=== PATIENT | male | born 1975 | race Two or more races ===

== ENCOUNTER 2020-04-28 12:53 | Outpatient (REF) | payer SELFPAY | END 2020-04-28 12:54 | disposition home or self-care (01) | LOC: HO.LAB 12:53 | PROVIDERS: Visit Provider Internal Medicine | DX: Z20.828 Contact with and (suspected) exposure to other viral communicable diseases (principal) | CPT/HCPCS: C9803; U0003 ==

== ENCOUNTER 2020-05-08 13:10 | Emergency (ER) | payer SELFPAY ==
[2020-05-08 14:25] VITALS: BP 152/96; PULSE 85; RESP 18; TEMP 37.1; O2SAT 99; BMI 36.3
--- NOTE | 2020-05-08 17:00 | CT_ITS ---
EXAMINATION: CT HEAD WITHOUT CONTRAST CLINICAL INFORMATION: 44-year-old male patient with head injury. COMPARISON: CT of the head done 12/18/2016 and 04/16/2017. (Normal). TECHNIQUE: Contiguous axial imaging was performed from the skull base to vertex without intravenous administration of contrast. This CT examination was performed using dose optimization techniques as appropriate, variously including the following: *Automated exposure control *Adjustment of mA and/or kV according to patient size (this includes techniques or standardized protocols for targeted exams where dose is matched to indication/reason for exam; i.e. extremities or head) *Use of iterative reconstruction technique DLP: 796 mGy-cm FINDINGS: There is no evidence of acute intracranial hemorrhage or territorial infarction. No abnormal mass effect or midline shift is seen. Guardado to white matter differentiation is well preserved. No extra-axial fluid collections are identified. The ventricles are normal in size. There is no abnormal attenuation within the brain parenchyma. The osseous structures and soft tissues are normal. The mastoid air cells are well aerated. There are secretions and fluid contained within the right ethmoid air cells and the right frontal sinus air cell. CT/CT head/brain wo con IMPRESSION: No acute intracranial pathology. Right frontal and ethmoid sinusitis
--- NOTE | 2020-05-08 17:01 | ED_ITS ---
HPI - Head Injury General Chief complaint: Head Injury Stated complaint: head inj,work related Time Seen by Provider: 05/08/20 16:42 Source: patient Mode of arrival: ambulatory Limitations: no limitations History of Present Illness HPI Narrative: Patient comes to the emergency room for a head injury. Patient states earlier this morning at 10:00am, he was at work, slipped and hit his head on a metal part of the back of a truck. Patient did not lose consciousness, but has been complaining of dizziness all day. No lacerations, patient denies being on blood thinners. No headache at this time. Patient states he took ibuprofen around 11:00. 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 Related Data Allergies Allergy/AdvReac Type Severity Reaction Status Date / Time No Known Allergies Allergy Unverified 01/28/20 16:24 [No Known Allergies*] Review of Systems Review of Systems: Constitutional : No Weight loss, No Fever, No Chills, No Night Sweats, No Fatigue, No Malaise ENT/Mouth : No Hearing loss, No Ear Pain, No Nasal Congestion, No Sinus Pain, No Hoarseness, No sore throat, No Rhinorrhea, No Swallowing Difficulty Eyes: No Eye Pain, No Swelling, No Redness, No Foreign Body, No Discharge, No Vision Changes Cardiovascular : No Chest Pain, No SOB, No Dyspnea on Exertion, No Orthopnea, No Edema, No Palpitations Respiratory : No Cough, No Sputum, No Wheezing, No Smoke Exposure, No Dyspnea Gastrointestinal : No Nausea, No Vomiting, No Diarrhea, No Constipation, No abdominal Pain, No Hematochezia, No Melena Genitourinary : no irregular bleeding, No Dysuria, No Urinary Frequency, No Hematuria, No Urinary Incontinence, No Urgency, No Flank Pain, No Urinary Flow Changes, No Hesitancy Musculoskeletal : No joint pain, No Myalgias, No Joint Swelling Skin : No Skin Lesions, No rash Neuro : No Weakness, No Numbness, No Paresthesias, No Loss of Consciousness, reports mild Dizziness, had mild headache earlier today, resolved now Psych : No Anxiety/Panic, No Depression, No SI/HI/AH/VH, No Social Issues, Heme/Lymph: No Bruising, No Bleeding,No Lymphadenopathy Endocrine : No Polyuria, No Polydipsia, No Temperature Intolerance [facility] Past Medical History Medical History (Updated 05/08/20 @ 18:10 by Bell Hutton MD) Anxiety Asthma Social History Social History Advance Directives: No Advance Directives Information Provided: No Physical Exam Vital Signs: Vital Signs: Last Vital Signs Temp 98.8 F 05/08/20 14:25 Pulse 85 05/08/20 14:25 Resp 18 05/08/20 14:25 BP 152/96 H 05/08/20 14:25 Pulse Ox 99 05/08/20 14:25 Body Mass Index 36.3 Appearance: Alert. Oriented X3. No acute distress. Eyes: Pupils equal, round and reactive to light. ENT: Pharynx normal. Neck: Normal inspection. Neck supple. No lymph nodes noted. No crepitus CVS: Normal heart rate and rhythm. Pulses normal. Normal S1 and S2 Respiratory: No respiratory distress. Breath sounds normal. No Wheezing. No rales Abdomen: Soft and nontender. No rigidity. No distention. good BS x4 Skin: Skin warm and dry. Normal skin color. Normal skin turgor. Extremities: No lower extremity edema. No Lacerations. No Rash Neuro: Oriented X 3. No motor deficit. No sensory deficit. Moving all extermities. No slurred speech. Course Course Course Narrative: I discussed the CT findings with the patient, no acute pathology. MDM - Head Injury Imaging Data CT scan - head: Radiologist's impression: FINDINGS: There is no evidence of acute intracranial hemorrhage or territorial infarction. No abnormal mass effect or midline shift is seen. Guardado to white matter differentiation is well preserved. No extra-axial fluid collections are identified. The ventricles are normal in size. There is no abnormal attenuation within the brain parenchyma. The osseous structures and soft tissues are normal. The mastoid air cells are well aerated. There are secretions and fluid contained within the right ethmoid air cells and the right frontal sinus air cell. CT/CT head/brain wo con IMPRESSION: No acute intracranial pathology. Right frontal and ethmoid sinusitis Discharge Plan Discharge Clinical Impression: Closed head injury Qualifiers: Encounter type: initial encounter Qualified Code(s): S09.90XA - Unspecified injury of head, initial encounter Patient Disposition: Home, Self-Care Instructions: Head Injury (ED) Additional Instructions: Your head CT was normal. Please follow-up with your primary care physician tomorrow. If you have any worsening or new symptoms, please return to the emergency room or call 911
[2020-05-08 18:14] VITALS: BP 144/101; PULSE 78; RESP 16; TEMP 36.7; O2SAT 98
== END 2020-05-08 18:28 | disposition home or self-care (01) ==
PROVIDERS: Emergency Provider Emergency Medicine; PCP Internal Medicine
DX: S00.90XA Unspecified superficial injury of unspecified part of head, initial encounter (principal); G44.309 Post-traumatic headache, unspecified, not intractable; W01.119A Fall on same level from slipping, tripping and stumbling with subsequent striking against unspecified sharp object, initial encounter; Y93.9 Activity, unspecified; Y92.9 Unspecified place or not applicable; Y99.0 Civilian activity done for income or pay
CPT/HCPCS: 70450; 99284

== ENCOUNTER 2020-05-11 06:44 | Outpatient (REF) | payer SELFPAY | END 2020-05-11 06:45 | disposition home or self-care (01) | LOC: HO.LAB 06:44 | PROVIDERS: PCP Internal Medicine; Visit Provider Internal Medicine | DX: Z20.828 Contact with and (suspected) exposure to other viral communicable diseases (principal) | CPT/HCPCS: C9803; U0003 ==

== ENCOUNTER 2020-05-13 13:37 | Emergency (ER) | payer SELFPAY ==
[2020-05-13 13:39] VITALS: BP 154/99; PULSE 79; RESP 16; TEMP 36.8; O2SAT 99; BMI 34.9
== END 2020-05-13 15:12 | disposition left against medical advice (07) ==
PROVIDERS: Emergency Provider Emergency Medicine
DX: R10.13 Epigastric pain (principal)
CPT/HCPCS: 99281; 99282

== ENCOUNTER 2020-06-17 15:31 | Emergency (ER) | payer OTHER, SELFPAY ==
--- NOTE | ~2020-06-17 | XR_ITS ---
EXAMINATION: XR CHEST CLINICAL INFORMATION: Shortness of breath COMPARISON: Chest x-ray 10/09/2016 TECHNIQUE: Frontal portable view of the chest was obtained. 5:31 PM FINDINGS: No significant abnormality is noted involving the heart, lungs, mediastinum, bony thorax or soft tissues. XR/XR chest 1V IMPRESSION: Unremarkable examination.
[2020-06-17 15:48] VITALS: BP 149/103; PULSE 85; RESP 18; TEMP 37.2; O2SAT 96; BMI 36.0
--- NOTE | 2020-06-17 17:18 | ED_ITS ---
HPI - URI/Sore Throat General Source: patient Mode of arrival: ambulatory Limitations: no limitations History of Present Illness HPI Narrative: Patient is a 45-year-old male with a past medical history of asthma, who is complaining of 5 days of shortness of breath that has been worse so in the past 2 days. He states he has tried his albuterol inhaler with no relief. He denies any cough, fevers, congestion, sinus pain or chest pain. States he lives with his and [id number] and his [id number] currently has bronchitis. He states they were all tested for COVID 10 days ago and they were all negative. He states he has been eating and drinking normally. Related Data Previous Rx's Medication Instructions Recorded albuterol sulfate 90 mcg/actuation 2 puff INHALATION QID PRN #8.5 g 06/18/20 aerosol inhaler Allergies Allergy/AdvReac Type Severity Reaction Status Date / Time No Known Allergies Allergy Verified 06/17/20 15:48 [No Known Allergies*] Review of Systems Review of Systems: Yes all other systems are reviewed and are negative [facility] Past Medical History Medical History Anxiety Asthma Social History Social History Alcohol intake: never Smoking Status: Never smoker Use of substances other than those prescribed or required for medical reasons: No Advance Directives: No Advance Directives Information Provided: No Physical Exam Vital Signs: Vital Signs: Last Vital Signs Temp 98.9 F 06/17/20 15:48 Pulse 85 06/17/20 15:48 Resp 18 06/17/20 15:48 BP 149/103 H 06/17/20 15:48 Pulse Ox 96 06/17/20 15:48 Body Mass Index 36.0 Const: General: cooperative, healthy appearing, comfortable and well developed Nutritional Appearance: average body habitus Orientation/consciousness: patient oriented x3 HENMT: Head: Yes normal to inspection, Yes normocephalic and Yes atraumatic Ears: hearing grossly normal bilaterally and external ears normal General nose exam: Normal external nose present Face and sinus: Yes normal facial exam and Yes sinuses nontender Mouth: Normal oral and palatal mucosa present Throat: Yes posterior oropharynx normal Eyes: General: appearance normal, both eyes and all related structures Resp: Effort & Inspection: normal respiratory effort and able to speak in complete sentences Auscultation: clear to auscultation bilaterally, no crackles, no rales, no rhonchi and no wheezes Cardio: Rate: regular rate Rhythm: regular rhythm Heart sounds: normal S1 and S2 Skin: General skin exam: no rashes or lesions noted Neuro: General: patient oriented x3 Course Course Course Narrative: Patient is a 45-year-old male with a past medical history of asthma complaining of 5 days of increasing shortness of breath. Upon my exam, patient's SpO2 was noted to be 100% a heart rate of 71BPM. Patient was breathing easily. Will get chest x-ray to rule out any lung pathology. Will also test for COVID MDM - URI/Sore Throat Lab Data Labs: Lab Results 06/17/20 Range/Units 17:55 Coronavirus (PCR) NEGATIVE (Negative) SARS-CoV-2 (PCR) Cancelled Influenza Type A (PCR) NEGATIVE (Negative) Influenza Type B (PCR) NEGATIVE (Negative) RSV RNA Qual (PCR) NEGATIVE (Negative) Imaging Data Chest x-ray: Attestation: I personally reviewed and interpreted this imaging study as follows: My impression: No acute disease Radiologist's impression: [address] [id number] ReportSigned Patient: Jose RuthMR#: [id number]: [id number]:[id number]/Sex: 45 / MADM Date: 06/17/20Loc: [address]: Ordering Physician: ALEXA ORTIZ Date of Service: 06/17/20 Procedure(s): XR chest 1V Accession Number(s): [id number] cc: ALEXA ORTIZ~ EXAMINATION: XR CHEST CLINICAL INFORMATION: Shortness of breath COMPARISON: Chest x-ray 10/09/2016 TECHNIQUE: Frontal portable view of the chest was obtained. 5:31 PM FINDINGS: No significant abnormality is noted involving the heart, lungs, mediastinum, bony thorax or soft tissues. XR/XR chest 1V IMPRESSION: Unremarkable examination. Dictated By:BRANDON SIDHU MDSigned By:<Electronically signed by BRANDON SIDHU MD in OV>06/17/202 DD/ 1711TD/TT: Client Engagement Specialist: HUI Discharge Plan Discharge Clinical Impression: Upper respiratory infection Qualifiers: URI type: unspecified viral URI Qualified Code(s): J06.9 - Acute upper respiratory infection, unspecified Patient Disposition: Home, Self-Care Instructions: COVID-19 (Coronavirus Disease 2019) (ED) Additional Instructions: You likely have a mild upper respiratory infection, your chest x-ray was normal, retest due for COVID today, you will get test results in 3-10 days. Until you receive a negative test, please follow the attached instructions about quarantining. If your shortness of breath becomes much worse, develop a high fever you cannot control with Tylenol or Motrin or you have chest pain, please seek emergent medical care. Prescriptions: No Action albuterol sulfate 90 mcg/actuation HFA aerosol inhaler 2 puff inhalation QID PRN (Reason: bronchospasm) Qty: 8.5 RF: 5 Interventions: ED Discharge Assessment Last Done: 06/17/20 18:41 Discharge Date/Time: 06/17/20 18:46
[2020-06-17 18:52] LABS: Influenza A PCR NEGATIVE (Negative); Influenza B PCR NEGATIVE (Negative); Resp Syncy Virus RNA Qual PCR NEGATIVE (Negative); SARS COV2 PCR INHOUSE NEGATIVE (Negative)
== END 2020-06-17 18:46 | disposition home or self-care (01) ==
PROVIDERS: Physician Assistant; Emergency Provider Emergency Medicine Emergency Medical Services
DX: J06.9 Acute upper respiratory infection, unspecified (principal); Z20.822 Contact with and (suspected) exposure to COVID-19; J45.909 Unspecified asthma, uncomplicated; Z79.899 Other long term (current) drug therapy
CPT/HCPCS: 0241U; 36415; 71045; 99283

== ENCOUNTER 2020-08-12 08:39 | Outpatient (REF) | payer OTHER, SELFPAY ==
[2020-08-12 13:30] LABS: SARS COV2 PCR INHOUSE NEGATIVE (Negative)
== END 2020-08-12 08:40 | disposition home or self-care (01) ==
LOC: HO.LAB 08:39
PROVIDERS: Visit Provider Internal Medicine
DX: Z20.822 Contact with and (suspected) exposure to COVID-19 (principal)
CPT/HCPCS: C9803; U0003

== ENCOUNTER 2020-08-24 06:56 | Outpatient (REF) | payer OTHER, SELFPAY ==
[2020-08-24 08:23] LABS: TSH reflex Free T4 1.09 uIU/mL (0.32-4.0)
== END 2020-08-24 06:57 | disposition home or self-care (01) ==
LOC: HO.LAB 06:56
PROVIDERS: PCP Internal Medicine; Visit Provider Internal Medicine
DX: E78.00 Pure hypercholesterolemia, unspecified (principal); R53.83 Other fatigue; R32 Unspecified urinary incontinence
CPT/HCPCS: 36415; 84153; 84443

== ENCOUNTER 2021-01-10 07:29 | Emergency (ER) | payer OTHER, SELFPAY ==
--- NOTE | ~2021-01-10 | XR_ITS ---
EXAMINATION: XR CHEST CLINICAL INFORMATION: Chest pain COMPARISON: Chest radiographs 06/17/2020, 10/09/2016 TECHNIQUE: Portable upright AP view of the chest was obtained. FINDINGS: The lungs are clear. There is no hyperinflation, airspace opacity, pneumothorax, pleural reaction, or effusion. The heart is normal in size and the hilar and mediastinal contours are normal. Bony structures are unremarkable. XR/XR chest 1V IMPRESSION: Unremarkable examination.
--- NOTE | 2021-01-10 07:49 | ECG_ITS ---
Test Reason : CP Blood Pressure : / mmHG Vent. Rate : 064 BPM Atrial Rate : 064 BPM P-R Int : 186 ms QRS Dur : 088 ms QT Int : 390 ms P-R-T Axes : 072 041 028 degrees QTc Int : 402 ms Normal sinus rhythm Normal ECG When compared with ECG of 07-JUN-2017 14:03, No significant change was found Referred By: Generic ED Physician Electronically Signed By:DEEPAK BA
--- NOTE | 2021-01-10 08:05 | ED_ITS ---
HPI - Chest Pain General Chief Complaint: General Medical Stated Complaint: chest pain Time Seen by Provider: 01/10/21 08:05 Source: patient Mode of arrival: ambulatory Limitations: no limitations History of Present Illness MD complaint: chest pain Onset (ago): hour(s) (started at 4am) Timing of current episode: other (improving) Prior episodes: No Onset: during rest Pain location: substernal and left chest Pain radiation: none Severity: moderate Quality: sharp Relieving factors: nothing Exacerbating factors: inspiration Associated symptoms: other (noted to some R flank pain yesterday) Treatment prior to arrival: none Related Data Previous Rx's Medication Instructions Recorded albuterol sulfate 90 mcg/actuation 2 puff INHALATION QID PRN #8.5 g 06/18/20 aerosol inhaler amlodipine 10 mg tablet 10 mg PO DAILY #30 tab 08/19/20 lisinopril 5 mg tablet 5 mg PO DAILY #90 tab 10/28/20 Allergies Allergy/AdvReac Type Severity Reaction Status Date / Time No Known Allergies Allergy Verified 08/19/20 12:24 [No Known Allergies*] Review of Systems Review of Systems: Constitutional : No Weight loss, No Fever, No Chills ENT/Mouth : No sore throat, No Rhinorrhea Eyes: No Eye Pain, No Swelling Cardiovascular : pos Chest Pain, no SOB, no Dyspnea on Exertion, No Orthopnea, No Edema, No Palpitations Respiratory : No Cough, No Sputum Gastrointestinal : no Nausea, No Vomiting, No Diarrhea, No abdominal Pain, No Hematochezia, No Melena Genitourinary : No Dysuria, No Urinary Frequency Musculoskeletal : No joint pain, No Myalgias, No Joint Swelling Skin : No Skin Lesions, No rash Neuro : No Weakness, No Numbness, No Dizziness, No Headache Psych : No Anxiety/Panic, No Depression Heme/Lymph: No Bruising, No Lymphadenopathy Endocrine : No Polyuria, No Polydipsia All other systems reviewed and are negative PMFSH Past Medical History Attestation statement: The following information was validated with the patient. Medical History Anxiety Asthma Benign essential hypertension Fatigue Obesity (BMI 30-39.9) Pure hypercholesterolemia Urinary incontinence Surgical History No significant past surgical history Family History Family History Mother Hypertension Maternal Grandmother Coronary artery disease Social History Social History (Updated 01/10/21 @ 08:10 by Celi Holland DO) Alcohol intake: never Patient Tobacco Use Status: Never used Tobacco Use of substances other than those prescribed or required for medical reasons: No Advance Directives: No Advance Directives Information Provided: No Physical Exam Vital Signs: Vital Signs: Last Vital Signs Temp 98.2 F 01/10/21 08:21 Pulse 72 01/10/21 08:21 Resp 16 01/10/21 08:21 BP 147/98 H 01/10/21 08:21 Pulse Ox 100 01/10/21 08:21 Body Mass Index 35.6 Appearance: Alert. Oriented X3. No acute distress. Eyes: Pupils equal, round and reactive to light. ENT: Pharynx normal. Neck: Normal inspection. Neck supple. CVS: Normal heart rate and rhythm. Pulses normal. Respiratory: No respiratory distress. Breath sounds normal. Abdomen: Soft and non-tender. Skin: Skin warm and dry. Normal skin color. Normal skin turgor. Extremities: No lower extremity edema. No calf ttp Neuro: Oriented X 3. No motor deficit. No sensory deficit. Course Course Course Narrative: repeat troponin flat, stable for DC, COVID negative MDM - Chest Pain MDM Narrative Medical decision making narrative: 45 yo male with HLD, HTN here with pleuritic L chest pain that has improved - at this time labs, troponin x 2, ddimer, EKG, CXR, UA ordered, currently is feeling better at this time seems unusual for ACS, possible PE vs pleurisy, distal pulses intact and good distal perfusion no radiation to back doubt dissection. dispo per results and findings. Lab Data Result diagrams: 01/10/21 08:50 01/10/21 08:50 Labs: Lab Results 01/10/21 01/10/21 01/10/21 Range/Units 08:50 08:50 08:50 WBC 6.7 (4.8-10.8) X10*3/uL RBC 5.44 (4.60-5.80) X10*6/uL Hgb 14.7 (14.0-18.0) g/dl Hct 45.7 (42-52) % MCV 84.0 (80-98) fL MCH 27.0 (27.0-33.0) pg MCHC 32.2 (31.0-36.0) g/dl RDW 12.7 (11.0-16.0) % Plt Count 208 (160-400) X10*3/uL MPV 9.4 (9.4-12.4) fL Immature Gran % (Auto) 0.1 (0.0-0.4) % Neut % (Auto) 65.3 (45-73) % Lymph % (Auto) 24.2 (20-40) % [place] % (Auto) 7.9 (2-11) % Eos % (Auto) 2.1 (0-4) % Baso % (Auto) 0.4 (0-2) % Lymph # (Auto) 1.6 (1.2-4.9) X10*3/uL [place] # (Auto) 0.5 (0.1-1.2) X10*3/uL Eos # (Auto) 0.1 (0.0-0.4) X10*3/uL Baso # (Auto) 0.0 (0.0-0.2) X10*3/uL Abs Immat Gran (auto) 0.01 (0.00-0.03) X10*3/uL Absolute Neuts (auto) 4.4 (2.0-8.3) X10*3/uL Absolute Nucleated RBC 0.000 (0.0-0.012) X10*3/uL Nucleated RBC % (auto) 0.0 (0.0-0.2) /100WBC D-Dimer < 200 NG/ML Sodium 138 (135-145) mmol/L Potassium 4.4 (3.3-5.1) mmol/L Chloride 104 (96-108) mmol/L Carbon Dioxide 29 (22-29) mmol/L Anion Gap 9 L (12-20) BUN 14 (9-16) mg/dL Creatinine 1.00 (0.5-1.4) mg/dL Estim Creat Clear Calc 108.0 Estimated GFR > 60 Random Glucose 104 (60-115) mg/dL Calcium 9.7 (8.4-10.2) mg/dL Magnesium 2.1 (1.6-2.6) mg/dL Total Bilirubin 0.9 (0.0-1.0) mg/dL Direct Bilirubin 0.2 (0.0-0.5) mg/dL AST 17 (5-37) U/L ALT 19 (0-40) U/L Alkaline Phosphatase 69 (39-117) U/L Troponin I High Sens (<3.5-35.0) ng/L Total Protein 7.5 (6.5-8.0) g/dL Albumin 4.7 (3.5-5.0) g/dL Lipase 30 (8-78) U/L COVID-19 (ARTUR) (Negative) COVID-19 Clin Com 01/10/21 01/10/21 01/10/21 Range/Units 08:50 08:50 10:44 WBC (4.8-10.8) X10*3/uL RBC (4.60-5.80) X10*6/uL Hgb (14.0-18.0) g/dl Hct (42-52) % MCV (80-98) fL MCH (27.0-33.0) pg MCHC (31.0-36.0) g/dl RDW (11.0-16.0) % Plt Count (160-400) X10*3/uL MPV (9.4-12.4) fL Immature Gran % (Auto) (0.0-0.4) % Neut % (Auto) (45-73) % Lymph % (Auto) (20-40) % [place] % (Auto) (2-11) % Eos % (Auto) (0-4) % Baso % (Auto) (0-2) % Lymph # (Auto) (1.2-4.9) X10*3/uL [place] # (Auto) (0.1-1.2) X10*3/uL Eos # (Auto) (0.0-0.4) X10*3/uL Baso # (Auto) (0.0-0.2) X10*3/uL Abs Immat Gran (auto) (0.00-0.03) X10*3/uL Absolute Neuts (auto) (2.0-8.3) X10*3/uL Absolute Nucleated RBC (0.0-0.012) X10*3/uL Nucleated RBC % (auto) (0.0-0.2) /100WBC D-Dimer NG/ML Sodium (135-145) mmol/L Potassium (3.3-5.1) mmol/L Chloride (96-108) mmol/L Carbon Dioxide (22-29) mmol/L Anion Gap (12-20) BUN (9-16) mg/dL Creatinine (0.5-1.4) mg/dL Estim Creat Clear Calc Estimated GFR Random Glucose (60-115) mg/dL Calcium (8.4-10.2) mg/dL Magnesium (1.6-2.6) mg/dL Total Bilirubin (0.0-1.0) mg/dL Direct Bilirubin (0.0-0.5) mg/dL AST (5-37) U/L ALT (0-40) U/L Alkaline Phosphatase (39-117) U/L Troponin I High Sens < 3.5 < 3.5 (<3.5-35.0) ng/L Total Protein (6.5-8.0) g/dL Albumin (3.5-5.0) g/dL Lipase (8-78) U/L COVID-19 (ARTUR) Negative (Negative) COVID-19 Clin Com See Note ECG Data ECG #1: Attestation: I personally reviewed and interpreted this ECG as follows: ECG interpretation date: 01/10/21 ECG interpretation time: 08:06 Interpretation: Rate: 64 Rhythm: NSR [place]: normal Normal P waves. Normal MARA. Normal QRS complex. ST T wave : normal no SHEILA qTC: normal prior studies: no acute ischemia The study has been interpreted contemporaneously by me. . Discharge Plan Discharge Clinical Impression: Chest pain Qualifiers: Chest pain type: unspecified Qualified Code(s): R07.9 - Chest pain, unspecified Patient Disposition: Home, Self-Care Instructions: Chest Pain (ED) Additional Instructions: return to ED for any worsening symptoms or concerns repeat blood tests for your heart were normal, blood clot test negative, chest xray negative, COVID NEGATIVE Prescriptions: No Action albuterol sulfate 90 mcg/actuation HFA aerosol inhaler 2 puff inhalation QID PRN (Reason: bronchospasm) Qty: 8.5 RF: 5 lisinopril 5 mg tablet 5 mg PO DAILY Qty: 90 RF: 1 amlodipine 10 mg tablet 10 mg PO DAILY Qty: 30 RF: 3 Referrals: Leif Martin MD [Primary Care Provider] - 2 days (if not better) Stand Alone Forms: Work/School Release Interventions: ED Discharge Assessment Last Done: 01/10/21 11:31 Discharge Date/Time: 01/10/21 11:35
[2021-01-10 08:21] VITALS: BP 147/98; PULSE 72; RESP 16; TEMP 36.8; O2SAT 100; BMI 35.6
[2021-01-10 08:54] LABS: MANUAL DIFF FLAG NO
[2021-01-10 08:58] LABS: Basophils Percent Auto 0.4 % (0-2); Eosinophils Absolute Auto 0.1 X10*3/uL (0.0-0.4); Eosinophils Percent Auto 2.1 % (0-4); Hematocrit 45.7 % (42-52); Hemoglobin 14.7 g/dl (14.0-18.0); Imm Gran Abs Auto 0.01 X10*3/uL (0.00-0.03); Imm Gran Pct Auto 0.1 % (0.0-0.4); Lymphocytes Absolute Auto 1.6 X10*3/uL (1.2-4.9); Lymphocytes Percent Auto 24.2 % (20-40); Mean Corpuscular HGB Conc 32.2 g/dl (31.0-36.0); Mean Platelet Volume 9.4 fL (9.4-12.4); Monocytes Absolute Auto 0.5 X10*3/uL (0.1-1.2); Monocytes Percent Auto 7.9 % (2-11); Neutrophils Absolute Auto 4.4 X10*3/uL (2.0-8.3); Neutrophils Percent Auto 65.3 % (45-73); Platelet Count 208 X10*3/uL (160-400); Red Blood Count 5.44 X10*6/uL (4.60-5.80); Red Cell Distribution Width 12.7 % (11.0-16.0); White Blood Count 6.7 X10*3/uL (4.8-10.8)
[2021-01-10 09:07] LABS: D Dimer < 200 NG/ML
[2021-01-10 09:17] LABS: COVID-19 Test Negative (Negative); IDNOW Serial# 08D9AD1C
[2021-01-10 09:23] LABS: Troponin-I High Sensitivity < 3.5 ng/L (<3.5-35.0)
[2021-01-10 09:37] LABS: Alanine Aminotransferase 19 U/L (0-40); Albumin Level 4.7 g/dL (3.5-5.0); Alkaline Phosphatase 69 U/L (39-117); Anion Gap 9 (12-20); Aspartate Amino Transferase 17 U/L (5-37); Bilirubin Direct 0.2 mg/dL (0.0-0.5); Bilirubin Total 0.9 mg/dL (0.0-1.0); Blood Urea Nitrogen 14 mg/dL (9-16); Calcium 9.7 mg/dL (8.4-10.2); Carbon Dioxide 29 mmol/L (22-29); Chloride 104 mmol/L (96-108); Estimated Glomerular Filt Rate > 60; Glucose Random 104 mg/dL (60-115); Lipase 30 U/L (8-78); Magnesium 2.1 mg/dL (1.6-2.6); Potassium 4.4 mmol/L (3.3-5.1); Sodium 138 mmol/L (135-145); Total Protein 7.5 g/dL (6.5-8.0)
[2021-01-10 11:25] LABS: Troponin-I High Sensitivity < 3.5 ng/L (<3.5-35.0)
== END 2021-01-10 11:35 | disposition home or self-care (01) ==
PROVIDERS: Emergency Provider Emergency Medicine; PCP Internal Medicine
DX: R07.9 Chest pain, unspecified (principal); I10 Essential (primary) hypertension
CPT/HCPCS: 36415; 71045; 80048; 80076; 83690; 83735; 84484; 85025; 85379; 87635; 93005; 99283; 99284

== ENCOUNTER 2021-05-12 05:54 | Emergency (ER) | payer MEDICAID, SELFPAY ==
--- NOTE | ~2021-05-12 | XR_ITS ---
EXAMINATION: XR CHEST CLINICAL INFORMATION: Cough COMPARISON: 01/10/2021 TECHNIQUE: Frontal view of the chest was obtained. FINDINGS: The lungs are clear with no focal consolidation. No evidence of pneumothorax, pulmonary edema, or pleural effusions. The cardiomediastinal silhouette is unremarkable. No acute osseous findings. XR/XR chest 1V IMPRESSION: No acute cardiopulmonary findings.
[2021-05-12 06:28] VITALS: BP 161/102; PULSE 78; RESP 16; TEMP 36.7; O2SAT 100; BMI 37.3
[2021-05-12 06:58] LABS: COVID-19 Test Negative (Negative)
--- NOTE | 2021-05-12 07:28 | ED.URI ---
HPI - URI/Sore Throat General Chief Complaint: General Medical Stated Complaint: Cough/?Pneumonia Time Seen by Provider: 05/12/21 07:23 Source: patient Mode of arrival: ambulatory Limitations: no limitations History of Present Illness MD elicited complaint: cough and rhinorrhea Onset (ago): week(s) (1) Consistency: intermittent Severity: mild Description of mucous: yellow and other (coughed so hard today noted some scrant streaked tinges of blood) Able to tolerate fluids by mouth: Yes Exacerbating factors: other (coughing) Relieving factors: OTC cold medicine Associated symptoms: denies other symptoms Treatments prior to arrival: cold medicine Related Data Previous Rx's Medication Instructions Recorded albuterol sulfate 90 mcg/actuation 2 puff INHALATION QID PRN #8.5 g 06/18/20 aerosol inhaler amlodipine 10 mg tablet 10 mg PO DAILY #30 tab 08/19/20 lisinopril 5 mg tablet 5 mg PO DAILY #90 tab 10/28/20 amoxicillin 875 mg-potassium 1 tab PO BID #14 tab 05/12/21 clavulanate 125 mg tablet (Augmentin) Allergies Allergy/AdvReac Type Severity Reaction Status Date / Time No Known Allergies Allergy Verified 08/19/20 12:24 [No Known Allergies*] Review of Systems Review of Systems: Constitutional : No Fever, No Chills ENT/Mouth : No sore throat, pos Rhinorrhea, No Swallowing Difficulty Eyes: No Eye Pain, No Swelling, No Redness Cardiovascular : No Chest Pain, no SOB, No Orthopnea, no Edema Respiratory : pos Cough, pos Sputum, No Wheezing, no dyspnea Gastrointestinal : No Nausea, No Vomiting, No Diarrhea, No abdominal Pain, No Hematochezia, No Melena Genitourinary : No Dysuria, No Urinary Frequency, No Hematuria Musculoskeletal : No joint pain, No Myalgias Skin : No Skin Lesions, No rash Neuro : No Weakness, No Numbness, No Dizziness, No Headache Psych : No Anxiety/Panic, No Depression PMFSH Past Medical History Medical History Anxiety Asthma Benign essential hypertension Fatigue Obesity (BMI 30-39.9) Pure hypercholesterolemia Urinary incontinence Surgical History No significant past surgical history Family History Family History Mother Hypertension Maternal Grandmother Coronary artery disease Social History Social History Alcohol intake: current Alcohol intake frequency: holidays/special occasions only Patient Tobacco Use Status: Never used Tobacco Use of substances other than those prescribed or required for medical reasons: No Advance Directives: No Physical Exam Vital Signs: Vital Signs: Last Vital Signs Temp 98.1 F 05/12/21 07:31 Pulse 75 05/12/21 07:31 Resp 16 05/12/21 07:31 BP 164/108 H 05/12/21 07:31 Pulse Ox 100 05/12/21 07:31 BMI result Body Mass Index 37.3 Appearance: Alert. Oriented X3. No acute distress. Eyes: Pupils equal, round and reactive to light. ENT: Pharynx normal. Neck: Normal inspection. Neck supple. CVS: Normal heart rate and rhythm. Pulses normal. Respiratory: No respiratory distress. Breath sounds normal. Abdomen: Soft and nontender. Skin: Skin warm and dry. Normal skin color. Normal skin turgor. Extremities: No lower extremity edema. No calf ttp Neuro: Oriented X 3. No motor deficit. No sensory deficit. MDM - URI/Sore Throat MDM Narrative Medical decision making narrative: 45 yo male not toxic, clear lungs here with cough x 1 week normal sats, CXR normal coughed so hard he had some scant streaks of blood today - at this time suspect bronchitis will start on augmentin, stable for DC, not on any form of blood thinners, no CP to suggest PE/no tachycardia and no signs of DVT Lab Data Labs: Lab Results 05/12/21 05/12/21 Range/Units 06:39 07:28 COVID-19 ([facility]) Negative (Negative) COVID-19 Clin Com See Note Influenza Type A (PCR) NEGATIVE (Negative) Influenza Type B (PCR) NEGATIVE (Negative) RSV RNA Qual (PCR) NEGATIVE (Negative) SARS-CoV-2 RNA (RT-PCR) NEGATIVE (Negative) Discharge Plan Discharge Clinical Impression: Bronchitis Patient Disposition: Home, Self-Care Instructions: Acute Bronchitis (ED) Additional Instructions: return to ED for any worsening symptoms or concerns COVID negative Prescriptions: New amoxicillin-pot clavulanate [Augmentin] 766-125 mg tablet 1 tab PO BID Qty: 14 RF: 0 No Action albuterol sulfate 90 mcg/actuation HFA aerosol inhaler 2 puff inhalation QID PRN (Reason: bronchospasm) Qty: 8.5 RF: 5 lisinopril 5 mg tablet 5 mg PO DAILY Qty: 90 RF: 1 amlodipine 10 mg tablet 10 mg PO DAILY Qty: 30 RF: 3
[2021-05-12 07:31] VITALS: BP 164/108; PULSE 75; RESP 16; TEMP 36.7; O2SAT 100
[2021-05-12] MEDS: Amoxicillin/Potassium Clav 875 MG TABLET PO (07:56)
[2021-05-12 08:15] LABS: Influenza A PCR NEGATIVE (Negative); Influenza B PCR NEGATIVE (Negative); Resp Syncy Virus RNA Qual PCR NEGATIVE (Negative); SARS COV2 PCR INHOUSE NEGATIVE (Negative)
== END 2021-05-12 09:16 | disposition home or self-care (01) ==
PROVIDERS: Emergency Provider Emergency Medicine; PCP Internal Medicine
DX: J40 Bronchitis, not specified as acute or chronic (principal); Z20.822 Contact with and (suspected) exposure to COVID-19; I10 Essential (primary) hypertension
CPT/HCPCS: 0241U; 36415; 71045; 87635; 99283; 99284

== ENCOUNTER 2021-05-19 13:24 | Outpatient (REF) | payer MEDICAID, SELFPAY ==
[2021-05-19 14:21] LABS: Binax Internal Control QC Valid; Binax Now Covid-19 Ag Negative (Negative)
== END 2021-05-19 13:25 | disposition home or self-care (01) ==
LOC: HO.LAB 13:24
PROVIDERS: PCP Internal Medicine; Visit Provider Internal Medicine
DX: Z20.822 Contact with and (suspected) exposure to COVID-19 (principal)
CPT/HCPCS: 36415; C9803

== ENCOUNTER 2021-05-26 10:13 | Outpatient (REF) | payer MEDICAID, SELFPAY ==
[2021-05-26 11:06] LABS: Binax Internal Control QC Valid; Binax Lot number: 9864; Binax Now Covid-19 Ag Negative (Negative)
== END 2021-05-26 10:14 | disposition home or self-care (01) ==
LOC: HO.LAB 10:13
PROVIDERS: Visit Provider Internal Medicine
DX: Z20.822 Contact with and (suspected) exposure to COVID-19 (principal)
CPT/HCPCS: C9803

== ENCOUNTER 2021-08-05 09:50 | Outpatient (REF) | payer OTHER, SELFPAY ==
--- NOTE | ~2021-08-05 | XR_ITS ---
EXAMINATION: XR CHEST CLINICAL INFORMATION: Dyspnea COMPARISON: Chest x-ray 05/12/2021 TECHNIQUE: 2 views of the chest were obtained. FINDINGS: No significant abnormality is noted involving the heart, lungs, mediastinum, bony thorax or soft tissues. XR/XR chest 2V IMPRESSION: Unremarkable chest examination.
[2021-08-05 10:10] LABS: MANUAL DIFF FLAG NO
[2021-08-05 11:19] LABS: Basophils Percent Auto 0.5 % (0-2); Eosinophils Absolute Auto 0.2 X10*3/uL (0.0-0.4); Eosinophils Percent Auto 2.3 % (0-4); Hematocrit 46.1 % (42.0-52.0); Hemoglobin 14.6 g/dl (14.0-18.0); Imm Gran Abs Auto 0.02 X10*3/uL (0.00-0.03); Imm Gran Pct Auto 0.3 % (0.0-0.4); Lymphocytes Absolute Auto 2.5 X10*3/uL (1.2-4.9); Lymphocytes Percent Auto 37.9 % (20-40); Mean Corpuscular HGB Conc 31.7 g/dl (31.0-36.0); Mean Corpuscular Hemoglobin 26.9 pg (27.0-33.0); Mean Corpuscular Volume 84.9 fL (80.0-98.0); Mean Platelet Volume 10.2 fL (9.4-12.4); Monocytes Absolute Auto 0.5 X10*3/uL (0.1-1.2); Monocytes Percent Auto 7.6 % (2-11); Neutrophils Absolute Auto 3.4 x10*3/uL (2.0-8.3); Neutrophils Percent Auto 51.4 % (45-73); Platelet Count 229 X10*3/uL (160-400); Red Blood Count 5.43 X10*6/uL (4.60-5.80); Red Cell Distribution Width 13.2 % (11.0-16.0); White Blood Count 6.6 X10*3/uL (4.8-10.8)
[2021-08-05 11:26] LABS: Appearance Urine CLEAR; Color Urine YELLOW; Glucose Urine UA NEG (NEG); Leukocyte Esterase Urine NEG (NEG); Nitrite Urine NEG (NEG); Specific Gravity - Urine >= 1.030 (1.005-1.025); UACC Culture Trigger NO; Urine Blood TRACE (NEG); Urine Ketones NEG (NEG); Urine Protein NEG (NEG-TRACE)
[2021-08-05 11:37] LABS: Alanine Aminotransferase 25 U/L (0-40); Albumin Level 4.6 g/dL (3.5-5.0); Alkaline Phosphatase 63 U/L (39-117); Anion Gap 11 (12-20); Aspartate Amino Transferase 17 U/L (5-37); Bilirubin Total 0.8 mg/dL (0.0-1.0); Blood Urea Nitrogen 11 mg/dL (9-16); Calcium 9.7 mg/dL (8.4-10.2); Carbon Dioxide 29 mmol/L (22-29); Chloride 106 mmol/L (96-108); Cholesterol 187 mg/dL; Estimated Glomerular Filt Rate > 60; Glucose Fasting 97 mg/dL (60-99); HDL Cholesterol 42 mg/dL; LDL Cholesterol Calculated 121 mg/dl; Potassium 4.3 mmol/L (3.3-5.1); Sodium 142 mmol/L (135-145); Total Protein 7.4 g/dL (6.5-8.0); Triglycerides 121 mg/dL
[2021-08-05 11:40] LABS: Mucus Urine 1+ /LPF; RBC Urine 0-2 /HPF (0); WBC Urine 0 /HPF (0-4)
[2021-08-05 11:59] LABS: Vitamin D 25-OH Total 13.1 ng/mL (>30)
== END 2021-08-05 09:51 | disposition home or self-care (01) ==
LOC: HO.LAB 09:50
PROVIDERS: PCP Internal Medicine; Visit Provider Internal Medicine
DX: Z00.00 Encounter for general adult medical examination without abnormal findings (principal); R06.00 Dyspnea, unspecified; I10 Essential (primary) hypertension; E55.9 Vitamin D deficiency, unspecified; Z12.5 Encounter for screening for malignant neoplasm of prostate
CPT/HCPCS: 36415; 71046; 80053; 80061; 81001; 81003; 82306; 84153; 84443; 85025

== ENCOUNTER → 2021-08-07 07:42 | Outpatient (REF) | payer OTHER, SELFPAY ==
--- NOTE | 2021-08-07 07:47 | ECG_ITS ---
Test Reason : RO6.00 Blood Pressure : / mmHG Vent. Rate : 065 BPM Atrial Rate : 065 BPM P-R Int : 190 ms QRS Dur : 084 ms QT Int : 380 ms P-R-T Axes : 067 045 031 degrees QTc Int : 395 ms Normal sinus rhythm Normal ECG When compared with ECG of 10-JAN-2021 07:30, No significant change was found Referred By: Leif Martin Electronically Signed By:MYRA MCGHEE
== END ==
LOC: HO.CARD 07:42
PROVIDERS: PCP Internal Medicine; Visit Provider Internal Medicine
DX: R06.00 Dyspnea, unspecified (principal); I10 Essential (primary) hypertension
CPT/HCPCS: 93005

== ENCOUNTER 2021-09-10 18:42 | Emergency (ER) | payer OTHER, SELFPAY ==
--- NOTE | 2021-09-10 | ECG_ITS ---
Test Reason : chest pain Blood Pressure : / mmHG Vent. Rate : 085 BPM Atrial Rate : 085 BPM P-R Int : 174 ms QRS Dur : 080 ms QT Int : 352 ms P-R-T Axes : 072 035 027 degrees QTc Int : 418 ms Normal sinus rhythm Normal ECG When compared with ECG of 07-AUG-2021 07:50, No significant change was found Referred By: Generic ED Physician Electronically Signed By:Teo Conn
--- NOTE | ~2021-09-10 | XR_ITS ---
EXAMINATION: PORTABLE CHEST 1 VIEW CLINICAL INFORMATION: CP . COMPARISON: 08/05/2021. TECHNIQUE: Portable frontal view of the chest was obtained. FINDINGS: The lungs are well expanded. No focal infiltrate, effusion, edema, or pneumothorax. Cardiac and mediastinal silhouettes are within normal limits for technique. No acute bony abnormality seen. XR/XR chest 1V IMPRESSION: No evidence of acute disease.
[2021-09-10 18:57] VITALS: BP 161/104; PULSE 82; RESP 20; TEMP 36.5; O2SAT 98; BMI 34.1
[2021-09-10 19:20] LABS: MANUAL DIFF FLAG NO
[2021-09-10 19:23] LABS: Basophils Percent Auto 0.3 % (0-2); Eosinophils Absolute Auto 0.4 X10*3/uL (0.0-0.4); Hematocrit 44.2 % (42.0-52.0); Hemoglobin 14.2 g/dl (14.0-18.0); Imm Gran Abs Auto 0.03 X10*3/uL (0.00-0.03); Imm Gran Pct Auto 0.3 % (0.0-0.4); Lymphocytes Absolute Auto 3.1 X10*3/uL (1.2-4.9); Lymphocytes Percent Auto 31.3 % (20-40); Mean Corpuscular HGB Conc 32.1 g/dl (31.0-36.0); Mean Corpuscular Hemoglobin 26.9 pg (27.0-33.0); Mean Corpuscular Volume 83.9 fL (80.0-98.0); Mean Platelet Volume 9.8 fL (9.4-12.4); Monocytes Absolute Auto 0.9 X10*3/uL (0.1-1.2); Monocytes Percent Auto 8.9 % (2-11); Neutrophils Absolute Auto 5.4 x10*3/uL (2.0-8.3); Neutrophils Percent Auto 55.2 % (45-73); Platelet Count 209 X10*3/uL (160-400); Red Blood Count 5.27 X10*6/uL (4.60-5.80); Red Cell Distribution Width 12.9 % (11.0-16.0); White Blood Count 9.8 X10*3/uL (4.8-10.8)
[2021-09-10 19:40] LABS: Anion Gap 14 (12-20); Blood Urea Nitrogen 15 mg/dL (9-16); Calcium 9.8 mg/dL (8.4-10.2); Carbon Dioxide 27 mmol/L (22-29); Chloride 104 mmol/L (96-108); Creatinine Clr Calc Pharmacy 91.6; Estimated Glomerular Filt Rate > 60; Glucose Random 86 mg/dL (60-115); Potassium 4.3 mmol/L (3.3-5.1); Sodium 141 mmol/L (135-145)
[2021-09-10 19:45] LABS: Troponin-I High Sensitivity < 3.5 ng/L (<3.5-35.0)
[2021-09-10 23:54] VITALS: BP 166/103; PULSE 69; RESP 17; TEMP 37; O2SAT 100
[2021-09-10 23:58] VITALS: PULSE 63
== END 2021-09-11 03:32 | disposition left against medical advice (07) ==
PROVIDERS: Student in an Organized Health Care Education/Training Program; Emergency Provider Emergency Medicine; PCP Internal Medicine
DX: R07.9 Chest pain, unspecified (principal)
CPT/HCPCS: 36415; 71045; 80048; 84484; 85025; 93005; 99283; 99284

== ENCOUNTER → 2021-09-25 07:16 | Outpatient (BNVA) | payer OTHER, SELFPAY | PROVIDERS: PCP Internal Medicine; Visit Provider Physician Assistant | DX: Z12.11 Encounter for screening for malignant neoplasm of colon (principal) ==

== ENCOUNTER → 2021-11-30 16:17 | Outpatient (REF) | payer OTHER, SELFPAY | LOC: HO.SL 16:17 | PROVIDERS: PCP Internal Medicine; Visit Provider Nurse Practitioner Family | DX: G47.33 Obstructive sleep apnea (adult) (pediatric) (principal) | CPT/HCPCS: 95806 ==

== ENCOUNTER 2022-04-23 19:39 | Emergency (ER) | payer OTHER, SELFPAY ==
[2022-04-23 19:52] VITALS: BP 148/98; PULSE 87; RESP 20; TEMP 36.9; O2SAT 98; BMI 35.6
--- NOTE | 2022-04-23 19:54 | ED_ITS ---
HPI - Skin/Abscess/Foreign Bdy General Chief complaint: Skin/Abscess/Foreign Body Stated complaint: Rash L hand, and L foot Time Seen by Provider: 04/23/22 19:54 Source: patient Mode of arrival: ambulatory Limitations: no limitations History of Present Illness HPI narrative: 46-year-old male with a history of hypertension and asthma presents with several complaints. Patient reports he has been taking lisinopril 20 mg but over the last month he notices blood pressure has been running high he has a me to call his primary care doctor to increase his dose of medications but he has not done so. He is asymptomatic with these episodes of hypertension. Patient also complaining of an itchy rash left hand to the lower legs which she noticed after getting home from work last night. 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 He can think of no other new medications, detergents, lotions, contacts or exposures at work. Patient got home and noticed some swelling and rash to left hand as well as the lower legs into the dose of Benadryl which did seem to help with the itchiness. He denies any associated pain or burning with the rash. No difficulty breathing, vomiting, diarrhea. Related Data Previous Rx's Medication Instructions Recorded albuterol sulfate 90 mcg/actuation 2 puff inhalation QID PRN 07/04/21 aerosol inhaler bronchospasm #8.5 grams bisacodyl 5 mg tablet,delayed 10 mg PO ONCE colonoscopy prep 1 09/25/21 release (Dulcolax (bisacodyl)) day #2 tabs polyethylene glycol 3350 17 238 g PO ONCE 1 day #238 grams 09/25/21 gram/dose oral powder (Miralax) cholecalciferol (vitamin D3) 50 50 mcg PO DAILY 90 days #90 caps 11/10/21 mcg (2,000 unit) capsule lisinopril 20 mg tablet 20 mg PO DAILY 90 days #90 tabs 11/16/21 fluticasone propionate 44 2 puff inhalation BID #10.6 grams 12/06/21 mcg/actuation HFA aerosol inhaler (Flovent HFA) amlodipine 5 mg tablet 5 mg PO DAILY 30 days #30 tabs 04/17/22 hydrocortisone 2.5 % topical cream 1 appl topical TID PRN rash #30 04/23/22 grams lisinopril 30 mg tablet 30 mg PO DAILY #30 tabs 04/23/22 loratadine 10 mg tablet (Claritin) 10 mg PO DAILY PRN allergic 04/23/22 symptoms #30 tabs prednisone 20 mg tablet 40 mg PO DAILY #10 tabs 04/23/22 Allergies Allergy/AdvReac Type Severity Reaction Status Date / Time No Known Allergies Allergy Verified 04/23/22 19:59 [No Known Allergies*] Review of Systems Review of Systems: Yes all other systems are reviewed and are negative Constitutional: Constitutional: Reports no additional constitutional complaints, Denies body ache(s), Denies chills, Denies fever(s), Denies headache(s) and Denies weakness Eyes: Eyes: Reports no additional eye complaints and Denies change in vision ENT: Reports system reviewed and no additional complaints, except as documented, Denies dizziness, Denies headache(s), Denies nasal congestion, Denies nasal discharge and Denies neck pain Cardiovascular: Cardiovascular: Reports no additional cardiovascular complaints, Denies chest pain, Denies leg edema and Denies dyspnea Respiratory: Respiratory: Reports no additional respiratory complaints, Denies cough and Denies dyspnea Gastrointestinal: Gastrointestinal: Reports no additional gastrointestinal complaints, Denies abdominal pain, Denies diarrhea, Denies nausea and Denies vomiting Genitourinary: Genitourinary: Denies urinary incontinence Musculoskeletal: Musculoskeletal: Reports no additional musculoskeletal complaints, Denies back pain, Denies arthralgias, Denies joint swelling, Denies neck pain, Denies numbness and Denies tingling Integumentary/Breasts: Skin/Breast: Reports system reviewed and no additional complaints, except as docu and Reports rash Neurologic: Reports system reviewed and no additional complaints, except as documented, Denies Abnormal speech present, Denies dizziness, Denies headache(s), Denies numbness, Denies tingling and Denies weakness [facility] Past Medical History Attestation statement: The following information was validated with the patient. Source: old records reviewed and nursing notes reviewed Medical History Anxiety Asthma Benign essential hypertension Fatigue Obesity (BMI 30-39.9) Pure hypercholesterolemia Urinary incontinence Vitamin D deficiency Surgical History No significant past surgical history Family History Family History Mother Hypertension Breast cancer Maternal Grandmother Coronary artery disease Social History Social History Housing: House Alcohol intake: current Alcohol intake frequency: holidays/special occasions only Patient Tobacco Use Status: Never used Tobacco Second Hand Smoke Exposure: No Advance Directives: No Advance Directives Information Provided: Yes service: No Current occupational status: employed Current occupation: [employer] Cognitive needs: No Hearing needs: No Vision needs: No Physical Exam Vital Signs: Vital Signs: Last Vital Signs Temp 98.4 F 04/23/22 19:52 Pulse 87 04/23/22 19:52 Resp 20 04/23/22 19:52 BP 148/98 H 04/23/22 19:52 Pulse Ox 98 04/23/22 19:52 O2 Del Method 04/23/22 19:52 BMI result Body Mass Index 35.6 Const: General: cooperative, healthy appearing, comfortable and no acute distress Orientation/consciousness: patient oriented x3 Limitations: no limitations HEENT: Head: Yes normal to inspection Ears: hearing grossly normal bilaterally General nose exam: Normal external nose present Face and sinus: Yes normal facial exam Mouth: Normal oral and palatal mucosa present Throat: Yes posterior oropharynx normal Eyes: General: appearance normal, both eyes and all related structures Pupils: Equal, round and reactive pupils present Neck: Neck: Yes normal visual inspection Chest: Chest palpation & inspection: normal inspection of the chest Resp: Effort & Inspection: normal respiratory effort Auscultation: clear to auscultation bilaterally Cardio: Rate: regular rate Rhythm: regular rhythm Peripheral pulses: Peripheral pulses 2+ throughout GI: Inspection: Yes normal to inspection Palpation (GI): Soft to palpation and nontender Auscultation: normal bowel sounds Back/Spine/Pelvis: Thoracic/Lumbar Spine: thoracic and lumbar spine normal to inspection Skin: General skin exam: no rashes or lesions noted Neuro: General: patient oriented x3, no focal motor deficits and normal sensation to monofilament Cranial nerves: Yes Equal, round and reactive pupils present Cognition (Neuro): normal cognition Speech: No Abnormal speech present Gait exam (Neuro): Normal gait present Motor exam (neuro): 5/5 motor strength present throughout Extrem: Other: There is the urticarial rash noted over the anterior aspect of both lower legs. To the dorsal aspect of left hand there is some erythema and swelling. General: Yes normal to inspection Medical Decision Making Medical Decision Making MDM Narrative: 46-year-old male here with multiple complaints 1. Uncontrolled hypertension despite taking his lisinopril 20 mg daily over the last month. Asymptomatic. Will increase does and have follow-up with his primary care doctor outpatient for recheck of blood pressure 2. Itching rash to lower legs and left hand noticed since yesterday. On exam consistent with dermatitis. Patient does report some improvement with Benadryl. Will give prednisone, Claritin, hydrocortisone and recommend continue Benadryl. No airway involvement or angioedema. Vitals are stable Differential Diagnosis Differential Diagnoses: The differential diagnosis associated with the presentation includes Discharge Plan Discharge Clinical Impression: Dermatitis, Hypertension Patient Disposition: Home, Self-Care Instructions: Chronic Hypertension (ED), Dermatitis (ED), Cold Compress or Soak (ED) Additional Instructions: Take Benadryl as needed Prescriptions: New prednisone 20 mg tablet 40 mg PO DAILY Qty: 10 0RF hydrocortisone 2.5 % cream 1 appl topical TID PRN (Reason: rash) Qty: 30 0RF loratadine [Claritin] 10 mg tablet 10 mg PO DAILY PRN (Reason: allergic symptoms) Qty: 30 0RF lisinopril 30 mg tablet 30 mg PO DAILY Qty: 30 0RF No Action albuterol sulfate 90 mcg/actuation HFA aerosol inhaler 2 puff inhalation QID PRN (Reason: bronchospasm) Qty: 8.5 5RF fluticasone propionate [Flovent HFA] 44 mcg/actuation HFA aerosol inhaler 2 puff inhalation BID Qty: 10.6 1RF Rx Instructions: administer with spacer amlodipine 5 mg tablet 5 mg PO DAILY 30 Days Qty: 30 3RF cholecalciferol (vitamin D3) 50 mcg (2,000 unit) capsule 50 mcg PO DAILY 90 Days Qty: 90 3RF lisinopril 20 mg tablet 20 mg PO DAILY 90 Days Qty: 90 1RF bisacodyl [Dulcolax (bisacodyl)] 5 mg tablet,delayed release (DR/EC) 10 mg PO ONCE 1 Days Qty: 2 0RF Rx Instructions: Take 2 tablets by mouth at 12:00pm the day before your procedure. polyethylene glycol 3350 [Miralax] 17 gram/dose powder 238 g PO ONCE 1 Days Qty: 238 0RF Rx Instructions: Take as directed by mouth the day before your procedure. Referrals: Leif Martin MD [Primary Care Provider] - 1 week
== END 2022-04-23 20:12 | disposition home or self-care (01) ==
PROVIDERS: Emergency Provider Emergency Medicine; PCP Internal Medicine
DX: L30.9 Dermatitis, unspecified (principal); I10 Essential (primary) hypertension; E78.00 Pure hypercholesterolemia, unspecified; Z79.899 Other long term (current) drug therapy
CPT/HCPCS: 99282; 99283

== ENCOUNTER 2022-09-14 19:54 | Emergency (ER) | payer OTHER, SELFPAY ==
--- NOTE | ~2022-09-14 | XR_ITS ---
EXAMINATION: XR CHEST CLINICAL INFORMATION: Shortness of breath COMPARISON: 09/10/2021 TECHNIQUE: 2 views of the chest were obtained. FINDINGS: Lungs are clear. No consolidation, pneumothorax, or pleural effusion. Cardiac and mediastinal contours are normal. Pulmonary vasculature is unremarkable. Trachea is midline. Osseous structures are unremarkable. XR/XR chest 2V IMPRESSION: No acute cardiopulmonary findings.
[2022-09-14 19:59] VITALS: BP 185/111; PULSE 81; RESP 18; TEMP 36.2; O2SAT 98; BMI 36.7
--- NOTE | 2022-09-14 20:00 | ED_ITS ---
HPI - SOB/Dyspnea General Chief Complaint: Dyspnea <FLAVIA Renteria - Last Filed: 09/14/22 20:03> Stated Complaint: shortness of breath <FLAVIA Renteria - Last Filed: 09/14/22 20:03> Time Seen by Provider: 09/14/22 21:29 <FLAVIA Renteria - Last Filed: 09/14/22 20:03> Source: patient <Otoniel Izquierdo MD - Last Filed: 09/14/22 22:31> Mode of arrival: ambulatory <Otoniel Izquierdo MD - Last Filed: 09/14/22 22:31> Limitations: no limitations <Otoniel Izquierdo MD - Last Filed: 09/14/22 22:31> History of Present Illness HPI Narrative: 47-year-old male with history of asthma hypertension presents with shortness of breath and wheezing. was concerned about some abnormal breathing he was having incentive to the hospital. Patient has have a some shortness of breath worse than normal. Normally he will use an albuterol pump which will assist his breathing but today did not assist. He denies any fevers, chills, cough, chest pain. No clear relieving or exacerbating features. He also noticed a bump on the right lateral chest wall. Is not particularly painful. He only noticed it 2 or 3 days ago. There has been no trauma. <Otoniel Izquierdo MD - Last Filed: 09/14/22 22:31> Related Data Home Medications: Previous Rx's Medication Instructions Recorded albuterol sulfate 90 mcg/actuation 2 puff inhalation QID PRN 07/04/21 aerosol inhaler bronchospasm #8.5 grams bisacodyl 5 mg tablet,delayed 10 mg PO ONCE colonoscopy prep 1 09/25/21 release (Dulcolax (bisacodyl)) day #2 tabs polyethylene glycol 3350 17 238 g PO ONCE 1 day #238 grams 09/25/21 gram/dose oral powder (Miralax) cholecalciferol (vitamin D3) 50 50 mcg PO DAILY 90 days #90 caps 11/10/21 mcg (2,000 unit) capsule fluticasone propionate 44 2 puff inhalation BID #10.6 grams 12/06/21 mcg/actuation HFA aerosol inhaler (Flovent HFA) loratadine 10 mg tablet (Claritin) 10 mg PO DAILY PRN allergic 04/23/22 symptoms #30 tabs albuterol sulfate 90 mcg/actuation 2 puff inhalation Q6H PRN 09/14/22 aerosol inhaler (Proventil HFA) shortness of breath or wheezing #8.5 grams fluticasone propionate 110 1 puff inhalation BID #12 grams 09/14/22 mcg/actuation HFA aerosol inhaler (Flovent HFA) lisinopril 20 1 tab PO DAILY #20 tabs 09/14/22 mg-hydrochlorothiazide 12.5 mg tablet <FLAVIA Renteria - Last Filed: 09/14/22 20:03> Allergies/Adverse Reactions: Allergies Allergy/AdvReac Type Severity Reaction Status Date / Time No Known Allergies Allergy Verified 04/23/22 19:59 [No Known Allergies*] <FLAVIA Renteria - Last Filed: 09/14/22 20:03> PMFSH Past Medical History Medical History: Medical History Anxiety Asthma Benign essential hypertension Fatigue Obesity (BMI 30-39.9) Pure hypercholesterolemia Urinary incontinence Vitamin D deficiency <FLAVIA Renteria - Last Filed: 09/14/22 20:03> Surgical History: Surgical History No significant past surgical history <FLAVIA Renteria - Last Filed: 09/14/22 20:03> Family History Family History: Family History Mother Hypertension Breast cancer Maternal Grandmother Coronary artery disease <FLAVIA Renteria - Last Filed: 09/14/22 20:03> Social History Social History: Social History Housing: House Alcohol intake: never Patient Tobacco Use Status: Never used Tobacco Smoked in Last 30 Days: No Second Hand Smoke Exposure: No Use of substances other than those prescribed or required for medical reasons: No Advance Directives: No Advance Directives Information Provided: Yes service: No Current occupational status: employed Current occupation: [employer] Cognitive needs: No Hearing needs: No Vision needs: No <FLAVIA Renteria - Last Filed: 09/14/22 20:03> Physical Exam Vital Signs: Vital Signs: Last Vital Signs Temp 98.6 F 09/14/22 21:43 Pulse 89 09/14/22 21:43 Resp 18 09/14/22 21:43 BP 185/111 H 09/14/22 19:59 Pulse Ox 98 09/14/22 21:43 O2 Del Method Room Air 09/14/22 21:43 BMI result Body Mass Index 36.7 <FLAVIA Renteria - Last Filed: 09/14/22 20:03> Vital Signs: Last Vital Signs Temp 98.6 F 09/14/22 21:43 Pulse 89 09/14/22 21:43 Resp 18 09/14/22 21:43 BP 185/111 H 09/14/22 19:59 Pulse Ox 98 09/14/22 21:43 O2 Del Method Room Air 09/14/22 21:43 BMI result Body Mass Index 36.7 <Otoniel Izquierdo MD - Last Filed: 09/14/22 22:31> GEN: Well developed, no acute distress, alert, oriented HEENT: Normocephalic, atraumatic, normal external ears, nose appears normal, no oropharyngeal edema or exudates Eyes: Normal to appearance Neck: Supple, no lymphadenopathy Respiratory: Talks in complete sentences, no respiratory distress, clear to auscultation bilaterally Cardiovascular: Regular rate and rhythm, no murmurs rubs or gallops Abdomen: Soft, nontender, nondistended, no guarding, no rebound Back: No CVA tenderness Extremities: No clubbing cyanosis or edema Neurologic: No focal neurologic deficits, cranial nerves 2-12 intact, strength is 5/5 bilaterally Skin: No rash <Otoniel Izquierdo MD - Last Filed: 09/14/22 22:31> Course Course Course Narrative: RME - 47 yo male with history of asthma, untreated FANTASMA, HLD, HTN who presents to the ER for evaluation of exceptional dyspnea for the last 4 days. Ran out of albuterol. He also reports a new lump on the right side of his rib cage and a foul smell when he urinates, no pain. VS show HTN 180/100. SPO2 98%, speaking in complete sentences. Expiratory wheezing on exam, R>L. Plan: CXR, UA, breathing treatment and reassess. <FLAVIA Renteria - Last Filed: 09/14/22 20:03> Reevaluation(s) Reevaluation #1: Chest x-ray revealed no acute cardiopulmonary disease. There is no obvious skeletal issues. Patient feels better after breathing treatment. There is no wheezes, rales or rhonchi on exam. Patient's blood pressure was also initially noted to be elevated. However after putting the appropriate blood pressure cuff on, his blood pressure was much improved although remained hypertensive. Patient will switch from lisinopril 20 mg to lisinopril- hydrochlorothiazide daily. <Otoniel Izuqierdo MD - Last Filed: 09/14/22 22:31> Time: 22:30 <Otoniel Izquierdo MD - Last Filed: 09/14/22 22:31> Medications Administered Discontinued Medications Generic Name Dose Route Start Last Admin Trade Name Freq PRN Reason Stop Dose Admin Albuterol Sulfate 5 mg 09/14/22 20:03 09/14/22 21:14 Albuterol Sulfate (0.083%) 2.5 Mg/3 Ml Vial.Neb INHALE 09/14/22 20:04 5 mg ONCE ONE Administration <FLAVIA Renteria - Last Filed: 09/14/22 20:03> Medications Administered Discontinued Medications Generic Name Dose Route Start Last Admin Trade Name Freq PRN Reason Stop Dose Admin Albuterol Sulfate 5 mg 09/14/22 20:03 09/14/22 21:14 Albuterol Sulfate (0.083%) 2.5 Mg/3 Ml Vial.Neb INHALE 09/14/22 20:04 5 mg ONCE ONE Administration <Otoniel Izquierdo MD - Last Filed: 09/14/22 22:31> Medical Decision Making Medical Decision Making MDM Narrative: Patient presents with shortness of breath. Examination after treatment did not reveal any wheezes, rales or rhonchi. Chest x-ray was ordered and revealed no acute cardiopulmonary disease. Patient's blood pressure was also noted to be elevated. He has been reporting elevated blood pressures at home on a regular basis. He is taking his medications appropriately. <Otoniel Izquierdo MD - Last Filed: 09/14/22 22:31> Differential Diagnosis Differential Diagnoses: The differential diagnosis associated with the presentation includes (Asthma exacerbation, allergies, viral syndrome, bronchitis, pneumonia, hypertension) <Otoniel Izquierdo MD - Last Filed: 09/14/22 22:31> Independent Interpretation I performed an independent interpretation of an: Plain X-Ray (No acute cardiopulmonary disease) <Otoniel Izquierdo MD - Last Filed: 09/14/22 22:31> Prescription Management I considered prescription management with: Antibiotic <Otoniel Izquierdo MD - Last Filed: 09/14/22 22:31> Discharge Plan Discharge Clinical Impression: Asthma exacerbation, Hypertension <FLAVIA Renteria - Last Filed: 09/14/22 20:03> Patient Disposition: Home, Self-Care <FLAVIA Renteria - Last Filed: 09/14/22 20:03> Instructions: Asthma (DC), How to Use a Metered-Dose Inhaler (ED), Chronic Hypertension (DC), DASH Eating Plan (ED), How to Use a Breath-Activated Inhaler (ED) <FLAVIA Renteria - Last Filed: 09/14/22 20:03> Prescriptions: New albuterol sulfate [Proventil HFA] 90 mcg/actuation HFA aerosol inhaler 2 puff inhalation Q6H PRN (Reason: shortness of breath or wheezing) Qty: 8.5 0RF fluticasone propionate [Flovent HFA] 110 mcg/actuation HFA aerosol inhaler 1 puff inhalation BID Qty: 12 0RF lisinopril-hydrochlorothiazide 20-12.5 mg tablet 1 tab PO DAILY Qty: 20 0RF Continued fluticasone propionate [Flovent HFA] 44 mcg/actuation HFA aerosol inhaler 2 puff inhalation BID Qty: 10.6 1RF Rx Instructions: administer with spacer Discontinued amlodipine 5 mg tablet 5 mg PO DAILY 30 Days Qty: 30 3RF prednisone 20 mg tablet 40 mg PO DAILY Qty: 10 0RF hydrocortisone 2.5 % cream 1 appl topical TID PRN (Reason: rash) Qty: 30 0RF lisinopril 30 mg tablet 30 mg PO DAILY Qty: 30 0RF lisinopril 20 mg tablet 20 mg PO DAILY 90 Days Qty: 90 1RF No Action albuterol sulfate 90 mcg/actuation HFA aerosol inhaler 2 puff inhalation QID PRN (Reason: bronchospasm) Qty: 8.5 5RF loratadine [Claritin] 10 mg tablet 10 mg PO DAILY PRN (Reason: allergic symptoms) Qty: 30 0RF cholecalciferol (vitamin D3) 50 mcg (2,000 unit) capsule 50 mcg PO DAILY 90 Days Qty: 90 3RF bisacodyl [Dulcolax (bisacodyl)] 5 mg tablet,delayed release (DR/EC) 10 mg PO ONCE 1 Days Qty: 2 0RF Rx Instructions: Take 2 tablets by mouth at 12:00pm the day before your procedure. polyethylene glycol 3350 [Miralax] 17 gram/dose powder 238 g PO ONCE 1 Days Qty: 238 0RF Rx Instructions: Take as directed by mouth the day before your procedure. <FLAVIA Renteria - Last Filed: 09/14/22 20:03> Referrals: Leif Martin MD [Primary Care Provider] - 1 week <FLAVIA Renteria - Last Filed: 09/14/22 20:03>
[2022-09-14] MEDS: Albuterol Sulfate (0.083%) 2.5 MG/3 ML VIAL.NEB 5 MG INHALE (21:14)
[2022-09-14 21:15] VITALS: PULSE 88; RESP 18; O2SAT 100
[2022-09-14 21:43] VITALS: PULSE 89; RESP 18; TEMP 37; O2SAT 98
== END 2022-09-14 22:52 | disposition home or self-care (01) ==
PROVIDERS: Emergency Provider Emergency Medicine; PCP Internal Medicine
DX: J45.901 Unspecified asthma with (acute) exacerbation (principal); R06.02 Shortness of breath; Z79.899 Other long term (current) drug therapy
CPT/HCPCS: 71046; 94640; 99284; 99285

== ENCOUNTER 2022-12-18 11:06 | Emergency (ER) | payer OTHER, SELFPAY ==
[2022-12-18 11:12] VITALS: BP 158/106; PULSE 83; RESP 20; TEMP 36.8; O2SAT 96; BMI 34.5
--- NOTE | 2022-12-18 11:15 | ED.EYEPROB ---
HPI - Eye Problem General Chief complaint: Eye Problems Stated complaint: L Eye Redness Swollen Time Seen by Provider: 12/18/22 12:19 Source: patient, RN notes reviewed and old records reviewed Mode of arrival: ambulatory History of Present Illness HPI Narrative: 47-year-old male with a past medical history of anxiety, asthma, HTN, HLD, presenting to the ED complaining of erythematous uncomfortable left eye noted yesterday. States felt like something went into eye and then rubbed eye, and then noted erythema. Admits to wearing glasses, denies wearing contacts. Admits to mild pressure behind eye and mild blurry vision which is resolved at present. Also reports issue with controlling BP at home, states has been monitoring daily and has been elevated, reports compliance with lisinopril-HCTZ home medication. Reports recent combination medication for him that was initiated in the ED, used to take lisinopril soley. States called his PCP however cannot get in until February. Denies headache, numbness/tingling, weakness, CP/SOB MD chief complaint: eye redness and vision change Related Data Previous Rx's Medication Instructions Recorded albuterol sulfate 90 mcg/actuation 2 puff inhalation QID PRN 07/04/21 aerosol inhaler bronchospasm #8.5 grams bisacodyl 5 mg tablet,delayed 10 mg PO ONCE colonoscopy prep 1 09/25/21 release (Dulcolax (bisacodyl)) day #2 tabs polyethylene glycol 3350 17 238 g PO ONCE 1 day #238 grams 09/25/21 gram/dose oral powder (Miralax) cholecalciferol (vitamin D3) 50 50 mcg PO DAILY 90 days #90 caps 11/10/21 mcg (2,000 unit) capsule fluticasone propionate 44 2 puff inhalation BID #10.6 grams 12/06/21 mcg/actuation HFA aerosol inhaler (Flovent HFA) loratadine 10 mg tablet (Claritin) 10 mg PO DAILY PRN allergic 04/23/22 symptoms #30 tabs albuterol sulfate 90 mcg/actuation 2 puff inhalation Q6H PRN 09/14/22 aerosol inhaler (Proventil HFA) shortness of breath or wheezing #8.5 grams fluticasone propionate 110 1 puff inhalation BID #12 grams 09/14/22 mcg/actuation HFA aerosol inhaler (Flovent HFA) lisinopril 20 1 tab PO DAILY #30 tabs 12/10/22 mg-hydrochlorothiazide 12.5 mg tablet Allergies Allergy/AdvReac Type Severity Reaction Status Date / Time No Known Allergies Allergy Verified 04/23/22 19:59 [No Known Allergies*] Review of Systems Review of Systems: Constitutional: No Fever, No Chills, No Fatigue ENT/Mouth: No Ear Pain, No Nasal Congestion, No sore throat, No Rhinorrhea, No Swallowing Difficulty Eyes: + Eye Pain, No Swelling, + Redness, No Foreign Body, No Discharge, + Vision Changes Cardiovascular: No Chest Pain, No SOB, No Edema, No Palpitations Respiratory: No Cough, No Sputum, No Dyspnea Gastrointestinal: No Nausea, No Vomiting, No Diarrhea, No Constipation, No Abdominal pain Musculoskeletal: No joint pain, No Myalgias, No Joint Swelling Skin: No Skin Lesions, No rash Neuro: No Weakness, No Numbness, No Paresthesias, No Loss of Consciousness, No Dizziness, No Headache Yes all other systems are reviewed and are negative Constitutional: Constitutional: Reports as per [facility] Past Medical History Attestation statement: The following information was validated with the patient. Source: old records reviewed Medical History Anxiety Asthma Benign essential hypertension Fatigue Obesity (BMI 30-39.9) Pure hypercholesterolemia Urinary incontinence Vitamin D deficiency Surgical History No significant past surgical history Family History Family History Mother Hypertension Breast cancer Maternal Grandmother Coronary artery disease Social History Social History Housing: House Alcohol intake: never Patient Tobacco Use Status: Never used Tobacco Second Hand Smoke Exposure: No Advance Directives: No Advance Directives Information Provided: Yes service: No Current occupational status: employed Current occupation: [employer] Cognitive needs: No Hearing needs: No Vision needs: No Physical Exam Vital Signs: Vital Signs: Last Vital Signs Temp 98.3 F 12/18/22 11:12 Pulse 83 12/18/22 11:12 Resp 20 12/18/22 11:12 BP 135/93 H 12/18/22 13:59 Pulse Ox 96 12/18/22 11:12 O2 Del Method Room Air 12/18/22 11:12 BMI result Body Mass Index 34.5 Const: General: cooperative, healthy appearing, no acute distress, alert and awake Orientation/consciousness: patient oriented x3 Limitations: no limitations HEENT: Head: Yes normal to inspection and Yes atraumatic Ears: hearing grossly normal bilaterally General nose exam: Normal external nose present Face and sinus: Yes normal facial exam Eyes: General: appearance normal, both eyes and all related structures Eyelids: Yes eyelids normal Conjunctivae: conjunctival abnormal left conjunctival injection diffuse and subconjunctival hemorrhage Corneas: corneas abnormal on the left fluorescein used and abrasion linear and at the following clock position (3 o'clock position); with no foreign body noted and without ulcerations Pupils: Equal, round and reactive pupils present EOM: EOMs intact bilaterally and no movement deficit Direct Ophthalmoscopy: normal light reflex and no photophobia Neck: Neck: Yes normal visual inspection and Yes no meningeal signs Resp: Effort & Inspection: normal respiratory effort and no respiratory distress Auscultation: clear to auscultation bilaterally, no crackles and no wheezes Cardio: Rate: regular rate Heart sounds: S1 normal heart sound present and S2 normal heart sound present : General: Yes no CVA tenderness Back/Spine/Pelvis: Back: no CVA tenderness Skin: Rashes: no rashes Wounds: no wounds Neuro: General: patient oriented x3, gait normal, tone normal, moves all extremities, no meningeal signs, no focal motor deficits and CN's II-XI intact bilaterally Cranial nerves: Yes Equal, round and reactive pupils present Gait exam (Neuro): Normal gait present Extrem: General: Yes normal to inspection Course Course Course Narrative: RME - 47 yo male presents to the ER for evaluation of acute onset of left eye redness, mild blurred vision and some tenderness to palpation. No FB sensation. No trauma. Plan: eye exam in [facility] [place] -blood pressure improved to 135/93 after medications given in the ED. Will initiate patient on a combination lisinopril 20/HCTZ 25 and amlodipine 2.5, is to closely follow up with PCP Results discussed with patient including worrisome signs and symptoms and strict return precautions, and when to return to the emergency department. They verbalized understanding and feel safe for discharge at this time. Medications Administered Discontinued Medications Generic Name Dose Route Start Last Admin Trade Name Cristopher PRN Reason Stop Dose Admin Amlodipine Besylate 2.5 mg 12/18/22 12:46 12/18/22 13:05 Amlodipine Besylate 2.5 Mg Tablet PO 12/18/22 12:47 2.5 mg ONCE ONE Administration Protocol Fluorescein Sodium 1 strip 12/18/22 12:22 12/18/22 12:26 Fluorescein Sodium Strip EYE-LEFT 12/18/22 12:23 1 strip ONCE ONE Administration Hydrochlorothiazide 12.5 mg 12/18/22 12:44 12/18/22 13:06 Hydrochlorothiazide 12.5 Mg Tablet PO 12/18/22 12:45 12.5 mg ONCE ONE Administration Protocol Tetracaine HCl 1 drop 12/18/22 12:22 12/18/22 12:26 Tetracaine Hcl/Pf 0.5% Oph [place] 4 Ml Drops EYE-LEFT 12/18/22 12:23 1 drop ONCE ONE Administration Medical Decision Making Medical Decision Making MDM Narrative: 47-year-old male with a past medical history of anxiety, asthma, HTN, HLD, presenting to the ED complaining of erythematous uncomfortable left eye noted yesterday. Also reports issue with controlling BP at home. On exam hypertensive 158/106, asymptomatic in that regard. Left eye exam as above with subconjunctival hemorrhage/conjunctival injection. No facial foreign body. +fluorescein uptake. No evidence of ulceration. No evidence of globe rupture. Concern for asymptomatic HTN and corneal abrasion. Low suspicion for hypertensive urgency/emergency or ACS Plan: Visual acuity, fluorescein staining, p.o. antihypertensive > Upon chart review appears patient was previously on Lisinopril 20mg and Amlodipine 10mg, changed to Lisinopril 30mg, and the combination caused hypotension. Subsequently patient was changed back to Lisinopril 20mg, Amlodipine was DC'd and combination medication initiated which is current regimen of Lisinopril 20/HCTZ 12.5 >> will try Lisinopril 20mg/HCTZ 25mg and initiating 2.5mg of Amlodipine and re-evaluate Please refer to course for remaining clinical decision making, interpretation of labs/imaging results, and discussions with consultants and/or family members. Differential Diagnosis Differential Diagnoses: The differential diagnosis associated with the presentation includes As above Admission/Observation Consideration of admission/observation: Escalation of care including admission/observation considered Lab Data MDM Lab Attestation statement: I reviewed the patient's lab results. Radiology Impression Discussion of test interpretation with radiology: I have reviewed the radiologist's reading. External Record Review External record reviewed: Inpatient record, Office record, Outpatient record, Prior outpatient labs, Prior outpatient radiology, Primary care record and Outside ED record Tests considered The following testing was considered but not selected: As above Prescription Management I considered prescription management with: Antibiotic Discharge Plan Discharge Clinical Impression: Corneal abrasion, Subconjunctival hemorrhage, Uncontrolled hypertension Prescriptions: No Action albuterol sulfate 90 mcg/actuation HFA aerosol inhaler 2 puff inhalation QID PRN (Reason: bronchospasm) Qty: 8.5 5RF fluticasone propionate [Flovent HFA] 44 mcg/actuation HFA aerosol inhaler 2 puff inhalation BID Qty: 10.6 1RF Rx Instructions: administer with spacer lisinopril-hydrochlorothiazide 20-12.5 mg tablet 1 tab PO DAILY Qty: 30 0RF loratadine [Claritin] 10 mg tablet 10 mg PO DAILY PRN (Reason: allergic symptoms) Qty: 30 0RF albuterol sulfate [Proventil HFA] 90 mcg/actuation HFA aerosol inhaler 2 puff inhalation Q6H PRN (Reason: shortness of breath or wheezing) Qty: 8.5 0RF fluticasone propionate [Flovent HFA] 110 mcg/actuation HFA aerosol inhaler 1 puff inhalation BID Qty: 12 0RF cholecalciferol (vitamin D3) 50 mcg (2,000 unit) capsule 50 mcg PO DAILY 90 Days Qty: 90 3RF bisacodyl [Dulcolax (bisacodyl)] 5 mg tablet,delayed release (DR/EC) 10 mg PO ONCE 1 Days Qty: 2 0RF Rx Instructions: Take 2 tablets by mouth at 12:00pm the day before your procedure. polyethylene glycol 3350 [Miralax] 17 gram/dose powder 238 g PO ONCE 1 Days Qty: 238 0RF Rx Instructions: Take as directed by mouth the day before your procedure.
[2022-12-18] MEDS: Tetracaine HCl/PF 0.5% Oph Sol 4 ML DROPS 1 DROP EYE-LEFT (12:26)
[2022-12-18] MEDS: Fluorescein Sodium STRIP 1 STRIP EYE-LEFT (12:26)
[2022-12-18] MEDS: amLODIPine Besylate 2.5 MG TABLET PO (13:05)
[2022-12-18 13:06] VITALS: BP 157/103
[2022-12-18] MEDS: hydroCHLOROthiazide 12.5 MG TABLET PO (13:06)
[2022-12-18 13:59] VITALS: BP 135/93
--- NOTE | 2022-12-18 14:01 | PC.NURSE ---
pt B/p trending downward, last reading 135/93 PA Justo Tran
== END 2022-12-18 14:54 | disposition home or self-care (01) ==
PROVIDERS: Emergency Provider Emergency Medicine; PCP Internal Medicine
DX: S05.02XA Injury of conjunctiva and corneal abrasion without foreign body, left eye, initial encounter (principal); H11.32 Conjunctival hemorrhage, left eye; I10 Essential (primary) hypertension; X58.XXXA Exposure to other specified factors, initial encounter; Y93.9 Activity, unspecified; Y92.9 Unspecified place or not applicable; Y99.9 Unspecified external cause status; Z79.899 Other long term (current) drug therapy
CPT/HCPCS: 99283

== ENCOUNTER 2023-06-09 11:46 | Emergency (ER) | payer OTHER, SELFPAY | END 2023-06-09 12:32 | disposition left against medical advice (07) | PROVIDERS: Emergency Provider Emergency Medicine; PCP Internal Medicine | DX: R10.9 Unspecified abdominal pain (principal); Z53.21 Procedure and treatment not carried out due to patient leaving prior to being seen by health care provider ==

== ENCOUNTER 2023-06-18 16:57 | Outpatient (AMB) | payer OTHER, SELFPAY ==
[2023-06-18 17:05] VITALS: BP 138/100; PULSE 66; O2SAT 98; BMI 35.8
--- NOTE | 2023-06-18 17:05 | MHC.PC.OV ---
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: No Accompanied by: Self / Same As Patient Allergies No Known Allergies [No Known Allergies*] Allergy (Verified 06/18/23 17:44) Medication List - Last Reconciled 06/18/23 by Leif Martin MD albuterol sulfate 90 mcg/actuation (Proventil HFA) 2 puffs inhalation Q6H PRN amlodipine 2.5 mg PO DAILY 30 days cholecalciferol (vitamin D3) 50 mcg PO DAILY 90 days lisinopril-hydrochlorothiazide 20-25 mg 1 tab PO DAILY 30 days loratadine (Claritin) 10 mg PO DAILY PRN Pulmicort Flexhaler 180 mcg/actuation (budesonide) 1 inh inhalation BID NS Tobacco use date assessed: 06/18/23 Dental Screening Dental Screen Date: 06/18/23 Did you have a dental visit in the last 12 months?: Yes Did you have a dental problem in the last 6 months where you did not have access to dental care?: No Was dental information given to patient?: Patient has dentist HPI medication f/u HPI Details Patient comes in today for his follow up visit - was last seen over a year ago in 11/2021 States that he currently feels okay He denies any headaches or dizziness Denies any chest pains, no shortness of breath No nausea / vomiting, no abdominal pain No change in bowel habits noted Adds that he was never able to get his screening colonoscopy done when it was ordered for him over a year ago and he would like to get a referral for this again [facility]LY [facility] Medical History Vitamin D deficiency Fatigue Obesity (BMI 30-39.9) Pure hypercholesterolemia Urinary incontinence Benign essential hypertension Asthma Anxiety Surgical History No significant past surgical history Family History Mother Hypertension Breast cancer Maternal Grandmother Coronary artery disease Social History Housing: House Alcohol intake: never Patient Tobacco Use Status: Never used Tobacco e-Cigarette/Vaping Use: Never Used Second Hand Smoke Exposure: No service: No Current occupational status: employed Current occupation: [employer] Cognitive needs: No Hearing needs: No Vision needs: No Questionnaire PHQ-9 Over the last 2 weeks, how often have you been bothered by any of the following problems? 1. Little interest or pleasure in doing things: not at all 2. Feeling down, depressed, or hopeless: not at all 3. Trouble falling or staying asleep, or sleeping too much: not at all 4. Feeling tired or having little energy: not at all 5. Poor appetite or overeating: not at all 6. Feeling bad about yourself - or that you are a failure or have let yourself or your family down: not at all 7. Trouble concentrating on things, such as reading the newspaper or watching television: not at all 8. Moving or speaking so slowly that other people could have noticed. Or the opposite - being so fidgety or restless that you have been moving around a lot more than usual: not at all 9. Thoughts that you would be better off or of hurting yourself in some way: not at all Total score: 0 Depression Screening Interpretation: Negative Depression Screening Done: Yes 42460 - PHQ-9 Billing: Yes Source: Developed by Drs. Rivera Montoya, Eleonora Barillas, Odin Gracia and colleagues, with an educational milton from [employer]. Thrive Questionnaire Date Thrive assessed: 06/18/23 I am a: Patient What is your living situation today?: I have a steady place to live Within the past 12 months, did the food you bought not last and you didn't have the money to get more?: Never true Within the past 12 months, did you worry whether your food would run out before you got money to buy more?: Never true Do you have trouble paying for medicines?: No Do you have trouble getting transportation to medical appointments?: No Do you have trouble paying your heating and electricity bill?: No Do you have trouble taking care of your child, family member or friend?: No Do you have trouble with day-to-day activities such as bathing, preparing meals, shopping, managing finances, etc.?: No Are you currently unemployed and looking for a job?: No Are you interested in more education?: No Please select the resources that you would like help with: None Currently or been in a relationship where the following occur: no concerns reported THRIVE Score: 0 AUDIT C Alcohol Use Questionnaire (AUDIT-C) 1. How often do you have a drink containing alcohol?: Monthly or less 2. How many drinks containing alcohol do you have on a typical day when you are drinking?: 1 or 2 3. How often do you have six or more drinks on one occasion?: Never Total Score: 1 Score Reviewed/Action Taken: Yes AMRIK-7 AMB Questionnaire AMRIK-7 Date AMRIK - 7 assessed: 06/18/23 Feeling nervous, anxious, or on edge: 0 = Not at all Not being able to stop or control worryin = Not at all Worrying too much about different things: 0 = Not at all Trouble relaxin = Not at all Being so restless that it is hard to sit still: 0 = Not at all Becoming easily annoyed or irritable: 0 = Not at all Feeling afraid as if something awful might happen: 0 = Not at all Total AMRIK-7 score (0-4 normal; 5-9 mild; 10-14 moderate; 15-21 severe): 0 Source: Developed by Drs. Rivera Montoya, Eleonora Barillas, Odin Gracia and colleagues, with an educational milton from [employer]. AMRIK-7 Assessment Billing AMRIK-7 Assessment Tool: AMRIK-7 Assessment 93703 Review of Systems Const Denies chills, Denies fatigue, Denies fever(s) and Denies headache(s) ENT Denies dysphagia, Denies dizziness, Denies otalgia, Denies headache(s), Denies neck pain, Denies odynophagia and Denies sore throat Card Denies chest pain, Denies palpitations and Denies dyspnea Resp Denies cough and Denies dyspnea GI Denies abdominal pain, Denies constipation, Denies dysphagia, Denies heartburn, Denies diarrhea, Denies nausea, Denies odynophagia and Denies vomiting Denies dysuria, Denies nocturia and Denies urinary frequency Musc Denies back pain and Denies neck pain Skin/Breast Denies rash Neuro Denies dizziness and Denies headache(s) Endo Denies fatigue and Denies palpitations Physical exam (Primary Care) Vital Signs: Last Vital Signs Pulse 66 06/18/23 17:05 BP 138/100 H 06/18/23 17:05 Pulse Ox 98 06/18/23 17:05 Oxygen Delivery Method Room Air 06/18/23 17:05 BMI result Body Mass Index 35.8 Tobacco/Smoking Status: Tobacco use Status Tobacco use date assessed 06/18/23 06/18/23 17:12 Patient Tobacco Use Status Never used Tobacco 06/18/23 17:12 e-Cigarette/Vaping Use Never Used 06/18/23 17:12 PHQ-9: PHQ-9 Score PHQ-9: Total score 0 06/18/23 17:46 Depression Screening Interpretation: Negative Thrive Assessment: Date of Thrive Assessment Date Thrive assessed 06/18/23 06/18/23 17:12 Currently or been in a relationship where the following occur: no concerns reported Const General: no acute distress and alert HENMT Ears: TM's normal bilaterally and EAC's normal Throat: Yes posterior oropharynx normal and Yes tonsils normal (no TP congestion) Neck Neck: Yes no lymphadenopathy and Yes supple Resp Auscultation: clear to auscultation bilaterally, no rales and no wheezes Cardio Rate: regular rate Rhythm: regular rhythm Heart sounds: no murmurs GI Palpation (GI): Soft to palpation and nontender Auscultation: normal bowel sounds General: Yes no CVA tenderness Back/Spine/Pelvis Back: no CVA tenderness Skin Rashes: no rashes Extrem General: Yes no clubbing, cyanosis or edema Assessment and Plan Assessment & Plan (1) Benign essential hypertension: Code(s): I10 - Essential (primary) hypertension Plan: Reinforced low sodium diet - goal is systolic BP of 120 mm or less Continue Lisinopril-HCT 20-25 mg QD Will increase his Amlodipine from 2.5 mg to 5 mg QD Patient is reminded to continue monitoring his blood pressure closely/regularly (2) Pure hypercholesterolemia: Code(s): E78.00 - Pure hypercholesterolemia, unspecified Plan: Reinforced low cholesterol diet Will have patient try to get his labs updated PAULINO, including his fasting lipid profile and metabolic profile (3) Asthma: Code(s): J45.909 - Unspecified asthma, uncomplicated Qualifiers: Asthma severity: mild Asthma persistence: persistent Asthma complication type: uncomplicated Qualified Code(s): J45.30 - Mild persistent asthma, uncomplicated Plan: Controlled Continue Pulmicort Flexhaler 180 mcg 1 inhalation BID and Albuterol HFA 1 to 2 inhalations Q 6 hours PRN (4) FANTASMA (obstructive sleep apnea): Comment: A mild degree of sleep apnea. The total AHI was 11/hr and the oxygen rand was 79%. Code(s): G47.33 - Obstructive sleep apnea (adult) (pediatric) Plan: His sleep apnea was mild on his recent sleep study and patient has opted to try losing some weight and hold off on using a CPAP device at this time (5) Vitamin D deficiency: Code(s): E55.9 - Vitamin D deficiency, unspecified Plan: Continue Vitamin D3 2000 units QD (6) Urinary incontinence: Code(s): R32 - Unspecified urinary incontinence Qualifiers: Urinary Incontinence type: unspecified incontinence Qualified Code(s): R32 - Unspecified urinary incontinence Plan: PSA was normal at 0.40 when last checked in 2020 Will consider referral to urology if his symptoms persist or get worse (7) Obesity (BMI 30-39.9): Code(s): E66.9 - Obesity, unspecified Plan: Reinforced diet/exercise as tolerated/lose weight (8) Colon cancer screening: Comment: Colonoscopy- miralax/ gatorade prep Code(s): Z12.11 - Encounter for screening for malignant neoplasm of colon Plan: Will refer him again to GI for screening colonoscopy Plan Follow up in 3 months Orders: Orders Lipid Panel 06/18/23 E78.00 - Pure hypercholesterolemia, unspecified, Z00.00 - Encounter for general adult medical examination without abnormal findings UA CC w/rflx Micro + Cult 06/18/23 R30.0 - Dysuria, Z00.00 - Encounter for general adult medical examination without abnormal findings Microalbumin, Random (w Creat) 06/18/23 E11.9 - Type 2 diabetes mellitus without complications, Z00.00 - Encounter for general adult medical examination without abnormal findings Complete Blood Count Auto Diff 06/18/23 D64.9 - Anemia, unspecified, Z00.00 - Encounter for general adult medical examination without abnormal findings Comprehensive Jakin. Panel Fast 02/06/24 E78.00 - Pure hypercholesterolemia, unspecified, Z00.00 - Encounter for general adult medical examination without abnormal findings TSH reflex Free T4 06/18/23 E78.00 - Pure hypercholesterolemia, unspecified, Z00.00 - Encounter for general adult medical examination without abnormal findings Vitamin D 25-OH Total 06/18/23 E55.9 - Vitamin D deficiency, unspecified, Z00.00 - Encounter for general adult medical examination without abnormal findings Prostate Specific Antigen Scr 06/18/23 Z00.00 - Encounter for general adult medical examination without abnormal findings Referrals Gastroenterology Referral Z12.11 - Encounter for screening for malignant neoplasm of colon Medications: Changed From amlodipine 2.5 mg PO DAILY 30 days 30 tabs 1RF To amlodipine 5 mg PO DAILY 90 days 90 tabs 1RF Coding Level of Care Code Est Pt Level 4 (53174) Diagnoses Benign essential hypertension I10 Pure hypercholesterolemia E78.00 Mild persistent asthma without complication J45.30 Asthma severity: mild Asthma persistence: persistent Asthma complication type: uncomplicated FANTASMA (obstructive sleep apnea) G47.33 Vitamin D deficiency E55.9 Urinary incontinence, unspecified type R32 Urinary Incontinence type: unspecified incontinence Obesity (BMI 30-39.9) E66.9 Colon cancer screening Z12.11 Additional Codes AMRIK-7 Assessment Billing - AMRIK-7 Assessment Tool: AMRIK-7 Assessment [id number] ([id number])
== END 2023-06-18 17:52 | disposition home or self-care (01) ==
LOC: HO.HMGH 16:57
PROVIDERS: PCP Internal Medicine; Visit Provider Internal Medicine
DX: I10 Essential (primary) hypertension (principal); E78.00 Pure hypercholesterolemia, unspecified; E66.9 Obesity, unspecified; Z68.35 Body mass index [BMI] 35.0-35.9, adult; J45.30 Mild persistent asthma, uncomplicated; G47.33 Obstructive sleep apnea (adult) (pediatric); E55.9 Vitamin D deficiency, unspecified; R32 Unspecified urinary incontinence; Z12.11 Encounter for screening for malignant neoplasm of colon
CPT/HCPCS: 99214

== ENCOUNTER 2023-06-22 07:22 | Outpatient (REF) | payer OTHER, SELFPAY ==
[2023-06-22 07:59] LABS: MANUAL DIFF FLAG NO
[2023-06-22 08:23] LABS: Basophils Percent Auto 0.4 % (0-2); Eosinophils Absolute Auto 0.1 X10*3/uL (0.0-0.4); Eosinophils Percent Auto 1.8 % (0-4); Hematocrit 46.2 % (42.0-52.0); Hemoglobin 14.9 g/dl (14.0-18.0); Imm Gran Abs Auto 0.01 X10*3/uL (0.00-0.03); Imm Gran Pct Auto 0.1 % (0.0-0.4); Lymphocytes Absolute Auto 2.6 X10*3/uL (1.2-4.9); Lymphocytes Percent Auto 36.8 % (20-40); Mean Corpuscular HGB Conc 32.3 g/dl (31.0-36.0); Mean Corpuscular Volume 83.7 fL (80.0-98.0); Mean Platelet Volume 9.6 fL (9.4-12.4); Monocytes Absolute Auto 0.5 X10*3/uL (0.1-1.2); Monocytes Percent Auto 7.5 % (2-11); Neutrophils Absolute Auto 3.8 x10*3/uL (2.0-8.3); Neutrophils Percent Auto 53.4 % (45-73); Platelet Count 209 X10*3/uL (160-400); Red Blood Count 5.52 X10*6/uL (4.60-5.80); Red Cell Distribution Width 13.1 % (11.0-16.0); White Blood Count 7.1 X10*3/uL (4.8-10.8)
[2023-06-22 08:59] LABS: Alanine Aminotransferase 25 U/L (0-40); Albumin Level 4.7 g/dL (3.5-5.0); Alkaline Phosphatase 63 U/L (39-117); Anion Gap 15 (12-20); Aspartate Amino Transferase 21 U/L (5-37); Bilirubin Total 0.7 mg/dL (0.0-1.0); Blood Urea Nitrogen 15 mg/dL (9-16); Carbon Dioxide 30 mmol/L (22-29); Chloride 101 mmol/L (96-108); Cholesterol 178 mg/dL (<200); Estimated Glomerular Filt Rate > 60; Glucose Fasting 97 mg/dL (60-99); HDL Cholesterol 43 mg/dL (>40); LDL Cholesterol Calculated 103 mg/dL (<100); Potassium 4.2 mmol/L (3.3-5.1); Sodium 142 mmol/L (135-145); Total Protein 7.3 g/dL (6.5-8.0); Triglycerides 161 mg/dL (<150)
[2023-06-22 09:05] LABS: Prostate Specific Antigen Scr 0.51 ng/mL (<0.05-4.0)
[2023-06-22 09:17] LABS: TSH reflex Free T4 1.08 uIU/mL (0.32-4.0); Vitamin D 25-OH Total 28.1 ng/mL (>30)
[2023-06-22 09:29] LABS: Appearance Urine Clear; Color Urine Yellow; Glucose Urine UA Negative (Negative); Leukocyte Esterase Urine Negative (Negative); Nitrite Urine Negative (Negative); Specific Gravity - Urine 1.025 (1.005-1.025); UMIC TRIGGER UACC YES; Urine Blood Trace (Negative); Urine Ketones Negative (Negative); Urine Protein Negative (Neg-Trace)
[2023-06-22 09:39] LABS: Bacteria Urine None Seen (None Seen); Hyaline Casts Urine 0-2 /LPF (0-2); Squamous Epithelial Cell Urine 0-2 /HPF (0-2); WBC Urine 0-5 /HPF (0-5)
[2023-06-22 10:26] LABS: Creatinine Urine 275.21 mg/dL
== END 2023-06-22 07:23 | disposition home or self-care (01) ==
LOC: HO.LAB 07:22
PROVIDERS: PCP Internal Medicine; Visit Provider Internal Medicine
DX: Z00.00 Encounter for general adult medical examination without abnormal findings (principal); Z12.5 Encounter for screening for malignant neoplasm of prostate; E78.00 Pure hypercholesterolemia, unspecified; D64.9 Anemia, unspecified; E11.9 Type 2 diabetes mellitus without complications; E55.9 Vitamin D deficiency, unspecified
CPT/HCPCS: 36415; 80053; 80061; 81001; 82043; 82306; 82570; 84153; 84443; 85025

== ENCOUNTER 2023-09-03 07:44 | Outpatient (AMB) | payer OTHER, SELFPAY ==
--- NOTE | 2023-09-03 07:47 | MHC.OFFVIS ---
Vital Signs 09/03/23 07:51 Height 5 ft 7 in Weight 230 lb 4 oz BMI 36.1 BP 175/92 H Blood Pressure Location Lt brachial Position Sitting Pulse 67 Intake Visit Reasons: pre colonoscopy screening Intake Note: Patient 2nd pre colonoscopy screening. Patient cc: abdominal pain LLQ, and rectal bleeding on and off Expander Required: No Accompanied by: Spouse Allergies No Known Allergies [No Known Allergies*] Allergy (Verified 09/03/23 07:49) Medication List - Last Reconciled 09/03/23 by Elo Terrazas PA-C albuterol sulfate 90 mcg/actuation (Proventil HFA) 2 puffs inhalation Q6H PRN amlodipine 5 mg PO DAILY 90 days cholecalciferol (vitamin D3) 50 mcg PO DAILY 90 days Dulera 100-5 mcg/actuation (mometasone-formoterol) 2 puffs inhalation BID NS lisinopril-hydrochlorothiazide 20-25 mg 1 tab PO DAILY loratadine (Claritin) 10 mg PO DAILY PRN Pulmicort Flexhaler 180 mcg/actuation (budesonide) 1 inh inhalation BID NS HPI Comments Details: A 48 y/o female referred for screening colonoscopy-last colonoscopy [facility]- 5 years ago- Seen here in 2021- for abdominal pain- ordered colonoscopy- never followed through He has rectal litrjxct-bgtgwlryfsuai-zeqf not have hemorrhoids-per his report intermittent LLQ pain-x at least 3 years- had imaging CT and xray he reports as normal-labs as well FANTASMA- not using cpap- due to cost He is followed by pcp for asthma- HTN- he has not taken meds - last night or today No N/V/D- intermittent LLQ pain- reviewed labs no fevers PFSH Medical History Vitamin D deficiency Fatigue Obesity (BMI 30-39.9) Pure hypercholesterolemia Urinary incontinence Benign essential hypertension Asthma Anxiety Surgical History No significant past surgical history Family History Mother Hypertension Breast cancer Maternal Grandmother Coronary artery disease Social History Housing: House Alcohol intake: never Patient Tobacco Use Status: Never used Tobacco e-Cigarette/Vaping Use: Never Used Second Hand Smoke Exposure: No service: No Current occupational status: employed Current occupation: [employer] Cognitive needs: No Hearing needs: No Vision needs: No Review of Systems Const All systems reviewed & are unremarkable except as noted in HPI and below Card Denies chest pain and Denies dyspnea Resp Denies dyspnea GI Reports abdominal pain, Denies heartburn, Denies nausea and Denies vomiting Physical Exam Vital Signs: Last Vital Signs Pulse 67 09/03/23 07:51 BP 175/92 H 09/03/23 07:51 BMI result Body Mass Index 36.1 Const General: cooperative, healthy appearing, comfortable and well groomed Orientation/consciousness: patient oriented x3 Limitations: no limitations Resp Effort & Inspection: normal respiratory effort and able to speak in complete sentences Auscultation: clear to auscultation bilaterally, no rales, no rhonchi and no wheezes Cardio Rate: regular rate Rhythm: regular rhythm Heart sounds: S1 normal heart sound present and S2 normal heart sound present GI Palpation (GI): Soft to palpation, Tenderness to palpation present (GI) (Mild left quadrant deep palpation), no guarding and No Rebound tenderness present Percussion: Yes normal to percussion Auscultation: normal bowel sounds Skin General skin exam: no rashes or lesions noted Neuro General: patient oriented x3 Extrem General: Yes full ROM Psych Appearance: grossly normal and well kempt Mental Status: mental status grossly normal Speech and movement: Normal speech and movement present Affect: normal affect Attitude: cooperative Thought process: Normal thought process present Thought content: Normal thought content present Insight: Good insight present (Psych) Judgement: Good judgement present (Psych) Results Reviewed Results Reviewed: Reviewed labs no abdominal iaging not Assessment & Plan Assessment & Plan (1) Abdominal pain: Comment: Mild left quadrant tenderness deep palpation-no rebound or guard Code(s): R10.9 - Unspecified abdominal pain Category: Medical Plan: Colonoscopy with chronic abdominal (2) Rectal bleeding: Comment: May likely be hemorrhoidal-intermittent resolves Colonoscopy-discussed procedure, rare risks need for escorted due to anesthesia Code(s): K62.5 - Hemorrhage of anus and rectum Category: Medical Plan Colonoscopy Anesthesia MiraLax Gatorade Encouraged to prescribed medications Orders: Orders Colonoscopy - GI Use Only Today K62.5 - Hemorrhage of anus and rectum, R10.9 - Unspecified abdominal pain Medications: New bisacodyl (Dulcolax (bisacodyl)) Day before procedure @ 12 noon Take 4 tablets by mouth followed by large glass of water 20 mg (4 x 5 mg) PO ONCE 1 day PRN 4 tabs 0RF colonoscopy prep Z12.11 - Encounter for screening for malignant neoplasm of colon polyethylene glycol 3350 (Miralax) Take as directed by mouth the day before your procedure. 238 grams PO ONCE 1 day PRN 238 grams 0RF laxative effect Patient Instructions: 48-year-old male chronic abdominal pain rectal bleeding Colonoscopy MiraLax Gatorade prep, reviewed literature given Anesthesia consult FANTASMA does not use CPAP asthma Encouraged to call questions or concerns Encouraged to follow through with procedure Encouraged to follow-up with PCP and take medications prescribed for hypertension Appreciate the opportunity assist in care the patient
[2023-09-03 07:51] VITALS: BP 175/92; PULSE 67; BMI 36.1
== END 2023-09-03 08:46 | disposition home or self-care (01) ==
PROVIDERS: PCP Internal Medicine; Visit Provider Physician Assistant
DX: R10.9 Unspecified abdominal pain (principal); K62.5 Hemorrhage of anus and rectum
CPT/HCPCS: 99213

== ENCOUNTER → 2023-09-03 07:44 | Outpatient (BNVA) | payer OTHER, SELFPAY | PROVIDERS: PCP Internal Medicine; Visit Provider Physician Assistant ==

== ENCOUNTER 2023-12-05 11:01 | Outpatient (AMB) | payer OTHER, SELFPAY ==
--- NOTE | 2023-12-05 11:31 | MHC.OFFWIV ---
Intake Vital Signs 12/05/23 11:33 Height 5 ft 7 in Weight 232 lb BMI 36.3 BP 118/82 Blood Pressure Location Lt brachial Position Sitting Pulse 68 Pulse Source Pulse Oximeter Temp 98.1 F Temp Source Oral Pulse Oximetry (%) 98 Oxygen Delivery Method Room Air Intake Visit Reasons: Lt abd Pain/ Neck pain Intake Note: Pt is here c/o Left abd pain and muscle aches. Started a week ago Patient Tobacco Use Status: Never used Tobacco Allergies No Known Allergies [No Known Allergies*] Allergy (Verified 12/05/23 11:31) Do you need a note to return to daycare/school/sports/work: Yes HPI Lt abd Pain/ Neck pain HPI Details The patient is a 48 year old male who presents to the clinic today with generalized joint pain for the last 1 month after being bit by a tick. He denies fevers, chills. He does report pain in his left side of his abdomen, right neck, elbows, wrists, knees. 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 He had no specific injury. His did remove the tick which she describes as looking like a Pea, they did not seek treatment until the aches continued. He does report that the pain started within a week having the tick on him. He has had tics in the past and has been treated for potential Lyme in the past, however did not think that he might have Lyme this time. He also notes that he was started on a new asthma medication and he did have some aches in his lungs after he started that medication, he has since stopped that medication and his aches did not improve. [facility] Medical History Vitamin D deficiency Fatigue Obesity (BMI 30-39.9) Pure hypercholesterolemia Urinary incontinence Benign essential hypertension Asthma Anxiety Surgical History No significant past surgical history Family History Mother Hypertension Breast cancer Maternal Grandmother Coronary artery disease Social History Housing: House Alcohol intake: never Patient Tobacco Use Status: Never used Tobacco e-Cigarette/Vaping Use: Never Used Second Hand Smoke Exposure: No service: No Current occupational status: employed Current occupation: [employer] Cognitive needs: No Hearing needs: No Vision needs: No Review of Systems Const All systems reviewed & are unremarkable except as noted in HPI and below Physical Exam Vital Signs: Last Vital Signs Temp 98.1 F 12/05/23 11:33 Pulse 68 12/05/23 11:33 BP 118/82 12/05/23 11:33 Pulse Ox 98 12/05/23 11:33 Oxygen Delivery Method Room Air 12/05/23 11:33 BMI result Body Mass Index 36.3 Const General: cooperative, healthy appearing, comfortable, no acute distress and alert Orientation/consciousness: patient oriented x3 Limitations: no limitations Neck Neck: Yes normal visual inspection, Yes full ROM and Yes no lymphadenopathy Resp Effort & Inspection: normal respiratory effort and able to speak in complete sentences Auscultation: clear to auscultation bilaterally Cardio Jugular venous distension: no JVD Palpation: normal PMI Rate: regular rate Heart sounds: S1 normal heart sound present, S2 normal heart sound present, no click, no gallops, no murmurs and no rubs GI Inspection: Yes normal to inspection Palpation (GI): Soft to palpation and nontender Percussion: Yes normal to percussion Auscultation: normal bowel sounds Skin General skin exam: no rashes or lesions noted, elasticity normal and turgor normal Neuro General: patient oriented x3 Extrem General: Yes normal to inspection, Yes full ROM, Yes capillary refill normal and Yes normal exam except as noted Psych Appearance: grossly normal Mental Status: mental status grossly normal Speech and movement: Normal speech and movement present Affect: normal affect Assessment & Plan Assessment & Plan (1) Tick bite: Code(s): W57.XXXA - Bitten or stung by nonvenomous insect and other nonvenomous arthropods, initial encounter Qualifiers: Encounter type: initial encounter Site of tick bite: other part of neck Qualified Code(s): S10.86XA - Insect bite of other specified part of neck, initial encounter; W57.XXXA - Bitten or stung by nonvenomous insect and other nonvenomous arthropods, initial encounter Plan: Tick bite approximately 1 month ago with resultant arthralgias, we will treat for potential Lyme disease. Advised patient to follow up PCP with worsening or failure to resolve. Given that we are treating with doxycycline, I advised the patient to wear sunscreen to prevent photosensitivity, as well as take medication with food. (2) Arthralgia: Code(s): M25.50 - Pain in unspecified joint Qualifiers: Joint pain location: unspecified Qualified Code(s): M25.50 - Pain in unspecified joint Plan: Etiology unclear, however given that patient had onset of symptoms after being bit by a tick, we will treat with doxycycline for potential Lyme disease. Advised patient to follow up with PCP with worsening or failure to resolve. Advised use of NSAIDs, heat/ice. Plan See above for full details and plan. Medications: New doxycycline hyclate 100 mg PO BID 10 days 20 caps 0RF Coding Level of Care Code Est Pt Level 3 (11413) Diagnoses Tick bite of other part of neck, initial encounter S10.86XA; W57.XXXA Encounter type: initial encounter Site of tick bite: other part of neck Arthralgia, unspecified joint M25.50 Joint pain location: unspecified
[2023-12-05 11:33] VITALS: BP 118/82; PULSE 68; TEMP 36.7; O2SAT 98; BMI 36.3
== END 2023-12-05 12:32 | disposition home or self-care (01) ==
PROVIDERS: PCP Internal Medicine; Visit Provider Registered Nurse
DX: S10.86XA Insect bite of other specified part of neck, initial encounter (principal); W57.XXXA Bitten or stung by nonvenomous insect and other nonvenomous arthropods, initial encounter; M25.50 Pain in unspecified joint
CPT/HCPCS: 99214

== ENCOUNTER 2023-12-16 22:06 | Emergency (ER) | payer OTHER, SELFPAY ==
[2023-12-16 22:35] VITALS: BP 148/99; PULSE 75; RESP 16; TEMP 36.5; O2SAT 98; BMI 34.1
--- NOTE | 2023-12-16 22:43 | ECG_ITS ---
Test Reason : DIZZINESS Blood Pressure : / mmHG Vent. Rate : 063 BPM Atrial Rate : 063 BPM P-R Int : 200 ms QRS Dur : 090 ms QT Int : 396 ms P-R-T Axes : 052 001 007 degrees QTc Int : 405 ms Normal sinus rhythm Normal ECG When compared with ECG of 10-SEP-2021 18:51, No significant change was found Referred By: Generic ED Physician Electronically Signed By:CASEY ALEXANDER MD
[2023-12-16 23:02] LABS: MANUAL DIFF FLAG NO
[2023-12-16 23:03] LABS: Basophils Percent Auto 0.4 % (0-2); Eosinophils Absolute Auto 0.1 X10*3/uL (0.0-0.4); Eosinophils Percent Auto 1.5 % (0-4); Hematocrit 43.1 % (42.0-52.0); Hemoglobin 14.3 g/dl (14.0-18.0); Imm Gran Abs Auto 0.01 X10*3/uL (0.00-0.03); Imm Gran Pct Auto 0.1 % (0.0-0.4); Lymphocytes Absolute Auto 2.3 X10*3/uL (1.2-4.9); Lymphocytes Percent Auto 29.8 % (20-40); Mean Corpuscular HGB Conc 33.2 g/dl (31.0-36.0); Mean Corpuscular Hemoglobin 27.6 pg (27.0-33.0); Mean Platelet Volume 9.6 fL (9.4-12.4); Monocytes Absolute Auto 0.7 X10*3/uL (0.1-1.2); Monocytes Percent Auto 8.8 % (2-11); Neutrophils Absolute Auto 4.5 x10*3/uL (2.0-8.3); Neutrophils Percent Auto 59.4 % (45-73); Platelet Count 220 X10*3/uL (160-400); Red Blood Count 5.19 X10*6/uL (4.60-5.80); Red Cell Distribution Width 13.2 % (11.0-16.0); White Blood Count 7.6 X10*3/uL (4.8-10.8)
[2023-12-16 23:16] LABS: Alanine Aminotransferase 29 U/L (0-40); Albumin Level 4.8 g/dL (3.5-5.0); Alkaline Phosphatase 62 U/L (39-117); Anion Gap 11 (12-20); Aspartate Amino Transferase 22 U/L (5-37); Bilirubin Total 0.6 mg/dL (0.0-1.0); Blood Urea Nitrogen 14 mg/dL (9-16); Calcium 9.7 mg/dL (8.4-10.2); Carbon Dioxide 27 mmol/L (22-29); Chloride 106 mmol/L (96-108); Creatinine Clr Calc Pharmacy 104.4; Estimated Glomerular Filt Rate > 60; Glucose Random 105 mg/dL (60-115); Potassium 3.3 mmol/L (3.3-5.1); Sodium 141 mmol/L (135-145); Total Protein 7.8 g/dL (6.5-8.0)
[2023-12-16 23:23] LABS: Troponin-I High Sensitivity < 2.7 ng/L (<3.5-35.0)
--- NOTE | 2023-12-17 00:46 | PC.NURSE ---
pt wanted to leave due to the kids at home are crying for him and pt states that they looked up the labs and want to go home. pt states he will come back if pain comes back. pt is alert and oriented steady gait. skin pink warm and dry. This charge nurse tried to keep the pt but they still wanted to go home Pt and .
== END 2023-12-17 00:49 | disposition left against medical advice (07) ==
PROVIDERS: Emergency Provider Emergency Medicine; PCP Internal Medicine
DX: R42 Dizziness and giddiness (principal); Z53.21 Procedure and treatment not carried out due to patient leaving prior to being seen by health care provider
CPT/HCPCS: 36415; 80053; 84484; 85025; 93005; 99283

== ENCOUNTER → 2023-12-16 22:43 | Outpatient (BNV) | payer OTHER, SELFPAY | PROVIDERS: Emergency Provider Emergency Medicine; PCP Internal Medicine; Visit Provider Internal Medicine Cardiovascular Disease | DX: R42 Dizziness and giddiness (principal) | CPT/HCPCS: 93010 ==

== ENCOUNTER 2024-03-25 12:31 | Outpatient (AMB) | payer OTHER, SELFPAY ==
[2024-03-25 12:40] VITALS: BP 142/80; PULSE 76; TEMP 36.6; O2SAT 98
--- NOTE | 2024-03-25 12:40 | MHC.OFFWIV ---
Intake Vital Signs 03/25/24 12:40 Height 5 ft 7 in BP 142/80 H Blood Pressure Location Rt brachial Position Sitting Pulse 76 Pulse Source Pulse Oximeter Temp 97.9 F Temp Source Oral Pulse Oximetry (%) 98 Oxygen Delivery Method Room Air Intake Visit Reasons: EP sprained RT ankle Intake Note: pt is here for right ankle sprain, walk ing to work and patient tripped on a rock, happened today Patient Tobacco Use Status: Never used Tobacco Allergies No Known Allergies [No Known Allergies*] Allergy (Verified 03/25/24 12:40) Do you need a note to return to daycare/school/sports/work: No HPI EP sprained RT ankle HPI Details This note is constructed using voice recognition software. While every effort has been made to ensure accuracy, drupal programmer errors may have been included. The patient is a 48 year old male who presents to the clinic today with right ankle sprain at work 2 hours ago. He reports that he was walking into work when he rolled his ankle underneath him. He had pain immediately and some swelling with pain on ambulation. Since onset he has been able to walk slightly better. 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 He typically has over 150 deliveries and stops per day. He denies numbness and tingling in his foot. [facility] Medical History (Updated 02/03/24 @ 09:21 by Lizet Saldivar RN) FANTASMA (obstructive sleep apnea) Vitamin D deficiency Fatigue Obesity (BMI 30-39.9) Pure hypercholesterolemia Urinary incontinence Benign essential hypertension Asthma Anxiety Surgical History No significant past surgical history Family History Mother Hypertension Breast cancer Maternal Grandmother Coronary artery disease Social History Housing: House Are you a primary primary care physician to a significant other at home: No Do you presently have visiting nurse or other home services: No Alcohol intake: never Patient Tobacco Use Status: Never used Tobacco e-Cigarette/Vaping Use: Never Used Second Hand Smoke Exposure: No service: No Current occupational status: employed Current occupation: [employer] Cognitive needs: No Hearing needs: No Vision needs: No Review of Systems Const All systems reviewed & are unremarkable except as noted in HPI and below Physical Exam Vital Signs: Last Vital Signs Temp 97.9 F 03/25/24 12:40 Pulse 76 03/25/24 12:40 BP 142/80 H 03/25/24 12:40 Pulse Ox 98 03/25/24 12:40 Oxygen Delivery Method Room Air 03/25/24 12:40 Const General: cooperative, healthy appearing, comfortable, no acute distress and well developed Orientation/consciousness: patient oriented x3 Limitations: no limitations Resp Effort & Inspection: normal respiratory effort and able to speak in complete sentences Skin General skin exam: no rashes or lesions noted Neuro General: patient oriented x3 Extrem Other: Right ankle flexion and extension limited due to pain. Tender to palpation inferior to lateral malleolus with edema, no tenderness over fibula. No ecchymosis erythema or warmth. No tenderness along foot. Knee exam intact. Distal neurovascular exam intact. General: Yes normal to inspection Assessment & Plan Assessment & Plan (1) Right ankle strain: Code(s): S96.911A - Strain of unspecified muscle and tendon at ankle and foot level, right foot, initial encounter Qualifiers: Encounter type: initial encounter Qualified Code(s): S96.911A - Strain of unspecified muscle and tendon at ankle and foot level, right foot, initial encounter Plan: Imaging not necessary at this time due to [place] criteria. Brandon wrap applied. Advised rest, ice, compression, elevation, and NSAIDs for pain. Advised to take today off from work, and perform sitting work only for the next 2 days after return. If his symptoms do not improve, he should be re-evaluated, however if they resolve, he can return to regular duty. Reviewed typical timeline for sprain resolution of 1-3 weeks. Offered crutches for reduced weight-bearing, however he declined at this time. Plan See above for full details and plan. Coding Level of Care Code Est Pt Level 3 (12115) Diagnoses Strain of right ankle, initial encounter S96.911A Encounter type: initial encounter
== END 2024-03-25 13:43 | disposition home or self-care (01) ==
PROVIDERS: PCP Internal Medicine; Visit Provider Registered Nurse
DX: S96.911A Strain of unspecified muscle and tendon at ankle and foot level, right foot, initial encounter (principal); Z04.2 Encounter for examination and observation following work accident

== ENCOUNTER 2024-05-16 09:38 | Outpatient (AMB) | payer OTHER, SELFPAY ==
--- NOTE | 2024-05-16 11:56 | MHC.OFFWIV ---
Intake Vital Signs 05/16/24 12:06 Weight 227 lb BP 120/80 Blood Pressure Location Lt brachial Position Sitting Pulse 86 Pulse Source Pulse Oximeter Temp 98 F Temp Source Oral Pulse Oximetry (%) 98 Oxygen Delivery Method Room Air Intake Visit Reasons: EP pain on LT side of ribs & pain on joints Intake Note: Patient is here for lower left sided back pain that has been present for 1 week and has been having frequent urination, unable to hold urine and slight burning at times. He would also like to discuss his joint pain that has been present for 5 days. Patient Tobacco Use Status: Never used Tobacco Allergies No Known Allergies [No Known Allergies*] Allergy (Verified 05/16/24 12:07) Do you need a note to return to daycare/school/sports/work: No HPI EP pain on LT side of ribs & pain on joints HPI Details Patient is here for lower left sided back pain that has been present for 1 week and has been having frequent urination, unable to hold urine PFSH Medical History FANTASMA (obstructive sleep apnea) Vitamin D deficiency Fatigue Obesity (BMI 30-39.9) Pure hypercholesterolemia Urinary incontinence Benign essential hypertension Asthma Anxiety Surgical History No significant past surgical history Family History Mother Hypertension Breast cancer Maternal Grandmother Coronary artery disease Social History Housing: House Are you a primary specialist wound care to a significant other at home: No Do you presently have visiting nurse or other home services: No Alcohol intake: never Patient Tobacco Use Status: Never used Tobacco e-Cigarette/Vaping Use: Never Used Second Hand Smoke Exposure: No service: No Current occupational status: employed Current occupation: [employer] Cognitive needs: No Hearing needs: No Vision needs: No Review of Systems Const All systems reviewed & are unremarkable except as noted in HPI and below Physical Exam Vital Signs: Last Vital Signs Temp 98 F 05/16/24 12:06 Pulse 86 05/16/24 12:06 BP 120/80 05/16/24 12:06 Pulse Ox 98 05/16/24 12:06 Oxygen Delivery Method Room Air 05/16/24 12:06 Results AMB Urinalysis, Automated UA Leukoctes 0 Primo/uL Last Edit by Kanwal Lazo [facility] on 05/16/24 12:13 UA Nitrite Negative Last Edit by Kanwal Lazo [facility] on 05/16/24 12:13 UA Urobilinogen 0.2 mg/dL Last Edit by Kanwal Lazo [facility] on 05/16/24 12:13 UA Protein 0 mg/dL Last Edit by Kanwal Lazo [facility] on 05/16/24 12:13 UA pH 6.0 Last Edit by Kanwal Lazo [facility] on 05/16/24 12:13 UA Blood 0 Richard/uL Last Edit by Kanwal Lazo [facility] on 05/16/24 12:13 UA Specific [place] 1.025 Last Edit by Kanwal Lazo [facility] on 05/16/24 12:13 UA Ketone Negative Last Edit by Kanwal Lazo [facility] on 05/16/24 12:13 UA Bilirubin 0 mg/dL Last Edit by Kanwal Lazo [facility] on 05/16/24 12:13 UA Glucose 0 mg/dL Last Edit by Kanwal Lazo [facility] on 05/16/24 12:13 Assessment & Plan Assessment & Plan Orders: Orders AMB Urinalysis Automated Today Z13.9 - Encounter for screening, unspecified Coding Level of Care Code Est Pt Level 4 (31687)
[2024-05-16 12:06] VITALS: BP 120/80; PULSE 86; TEMP 36.6; O2SAT 98
== END 2024-05-16 13:06 | disposition home or self-care (01) ==
PROVIDERS: PCP Internal Medicine; Visit Provider Physician Assistant Medical
DX: Z13.9 Encounter for screening, unspecified (principal)

== ENCOUNTER → 2024-05-16 09:38 | Outpatient (BNVA) | payer OTHER, SELFPAY | PROVIDERS: PCP Internal Medicine; Visit Provider Physician Assistant Medical ==

== ENCOUNTER 2024-05-16 13:03 | Outpatient (REF) | payer OTHER, SELFPAY ==
[2024-05-16 14:08] LABS: Appearance Urine Clear; Color Urine Yellow; Glucose Urine UA Negative (Negative); Leukocyte Esterase Urine Negative (Negative); Nitrite Urine Negative (Negative); Specific Gravity - Urine 1.025 (1.005-1.025); Urine Blood Negative (Negative); Urine Ketones Negative (Negative); Urine Protein Negative (Neg-Trace)
[2024-05-16 15:15] LABS: MANUAL DIFF FLAG NO
[2024-05-16 15:17] LABS: Basophils Percent Auto 0.4 % (0-2); Eosinophils Absolute Auto 0.1 X10*3/uL (0.0-0.4); Eosinophils Percent Auto 1.9 % (0-4); Hematocrit 45.8 % (42.0-52.0); Hemoglobin 14.9 g/dl (14.0-18.0); Imm Gran Abs Auto 0.02 X10*3/uL (0.00-0.03); Imm Gran Pct Auto 0.3 % (0.0-0.4); Lymphocytes Absolute Auto 2.6 X10*3/uL (1.2-4.9); Lymphocytes Percent Auto 36.1 % (20-40); Mean Corpuscular HGB Conc 32.5 g/dl (31.0-36.0); Mean Corpuscular Volume 83.1 fL (80.0-98.0); Mean Platelet Volume 9.7 fL (9.4-12.4); Monocytes Absolute Auto 0.6 X10*3/uL (0.1-1.2); Monocytes Percent Auto 8.3 % (2-11); Neutrophils Absolute Auto 3.8 x10*3/uL (2.0-8.3); Platelet Count 215 X10*3/uL (160-400); Red Blood Count 5.51 X10*6/uL (4.60-5.80); Red Cell Distribution Width 13.4 % (11.0-16.0); White Blood Count 7.2 X10*3/uL (4.8-10.8)
[2024-05-16 15:40] LABS: Alanine Aminotransferase 39 U/L (0-40); Albumin Level 4.8 g/dL (3.5-5.0); Anion Gap 13 (12-20); Aspartate Amino Transferase 30 U/L (5-37); Bilirubin Total 0.6 mg/dL (0.0-1.0); Blood Urea Nitrogen 16 mg/dL (9-16); C Reactive Protein < 0.10 mg/dL (< or = 0.50); Calcium 9.8 mg/dL (8.4-10.2); Carbon Dioxide 30 mmol/L (22-29); Chloride 103 mmol/L (96-108); Estimated Glomerular Filt Rate > 60; Glucose Random 89 mg/dL (60-115); Lipase 22 U/L (8-78); Potassium 4.2 mmol/L (3.3-5.1); Sodium 142 mmol/L (135-145); Total Protein 7.8 g/dL (6.5-8.0)
[2024-05-16 15:53] LABS: Erythrocyte Sedimentation Rate 1 MM/HR (0-15)
[2024-05-16 16:03] LABS: Alkaline Phosphatase 62 U/L (39-117)
[2024-05-19 00:48] LABS: A. Phagocytphilium DNA,RT-PCR NOT DETECTED (NOT DETECTED); Babesia Microti DNA, RT-PCR NOT DETECTED (NOT DETECTED); Borrelia Miyamotoi,DNA RT-PCR NOT DETECTED (NOT DETECTED); E.Chaffeensis DNA RT-PCR NOT DETECTED (NOT DETECTED); Lyme(Borrelia ssp)DNA RT-PCR NOT DETECTED (NOT DETECTED)
== END 2024-05-16 13:04 | disposition home or self-care (01) ==
LOC: HO.HMGCLDS 13:03
PROVIDERS: PCP Internal Medicine; Visit Provider Physician Assistant Medical
DX: R10.9 Unspecified abdominal pain (principal); G89.29 Other chronic pain; M25.50 Pain in unspecified joint
CPT/HCPCS: 36415; 80053; 81003; 83690; 85025; 85652; 86140; 87468; 87469; 87478; 87484; 87798

== ENCOUNTER 2024-06-25 11:11 | Outpatient (AMB) | payer OTHER, SELFPAY ==
--- NOTE | 2024-06-25 11:19 | A.OFFPC_ITS ---
Vital Signs 06/25/24 11:20 Height 5 ft 7 in Weight 230 lb BMI 36.0 BP 130/80 Blood Pressure Location Lt brachial Position Sitting Pulse 73 Pulse Source Pulse Oximeter Temp 98.1 F Temp Source Oral Pulse Oximetry (%) 98 Oxygen Delivery Method Room Air Intake Visit Reasons: Regular Visit Business Rules Analyst Required: No Accompanied by: Self / Same As Patient Allergies No Known Allergies [No Known Allergies*] Allergy (Verified 06/25/24 11:28) Medication List - Last Reconciled 06/27/24 by JOHANNE Washington albuterol sulfate 90 mcg/actuation 2 puffs inhalation Q6H PRN amlodipine 5 mg PO DAILY 90 days Arnuity Ellipta 100 mcg/actuation (fluticasone furoate) 1 inh inhalation DAILY 30 days NS cholecalciferol (vitamin D3) 50 mcg PO DAILY 90 days lisinopril-hydrochlorothiazide 20-25 mg 1 tab PO DAILY loratadine (Claritin) 10 mg PO DAILY PRN meloxicam 15 mg PO DAILY Pulmicort Flexhaler 180 mcg/actuation (budesonide) 1 inh inhalation BID NS Tobacco use date assessed: 06/25/24 Dental Screening Dental Screen Date: 06/25/24 HPI Regular Visit HPI Details Patient is a 49 year old male presenting with concerns obesity, pure hypercholesterolemia, asthma, FANTASMA, vitamin-D deficiency, benign essential hypertension The patient is presenting today to follow up in ongoing symptoms Chart review:Patient went to the walk-in clinic on 05/16/2024 complaining of a constellation of symptoms, including left flank/low back pain, intermittent polyarthralgias, and urinary incontinence and urinary frequency. He is here for lower left sided back pain that has been present for 1 week and has been having frequent urination and incontinence of urine at times. He denies history of this, and denies dysuria, fever or chills, nausea or diarrhea, anorexia, weakness or vertigo, myalgias or malaise, joint swelling, rashes, penile lesions discharge from penis, gross blood in the urine, abdominal pain or pelvic pain, bowel changes, or any other associated symptoms. He denies being high risk for STDs and declines STD testing. Patient reports today that he has left lower side/back pain Reports that this has been going on since March Reports that he went to the walk-in in [place] and all his tests were negative Reports that he cannot remember twisting or injuring himself Reports that he woke up with the pain one day Reports that he tried Tylenol with positive effects but the pain always come back Patient also reports feet numbness in the morning that resolves after walking a little Reports that he continues to have increased tiredness during the daytime Reports that he was tested for FANTASMA but was told that he has a mild case The patient was not placed on CPAP Patient reports that he does have intermittent shortness of breath and uses his rescue inhaler Reports that he has stopped using the Arnuity Ellipta 10 mcg/actuation Reports that he feels like the powder in the medication is affecting negatively Reports that whenever he uses medication he has a severe headache PFSH Medical History FANTASMA (obstructive sleep apnea) Vitamin D deficiency Fatigue Obesity (BMI 30-39.9) Pure hypercholesterolemia Urinary incontinence Benign essential hypertension Asthma Anxiety Surgical History No significant past surgical history Family History Mother Hypertension Breast cancer Maternal Grandmother Coronary artery disease Social History Housing: House Are you a primary medicare biller to a significant other at home: No Do you presently have visiting nurse or other home services: No Alcohol intake: never Patient Tobacco Use Status: Never used Tobacco e-Cigarette/Vaping Use: Never Used Second Hand Smoke Exposure: No service: No Current occupational status: employed Current occupation: [employer] Cognitive needs: No Hearing needs: No Vision needs: No Questionnaire PHQ-9 Over the last 2 weeks, how often have you been bothered by any of the following problems? 1. Little interest or pleasure in doing things: not at all 2. Feeling down, depressed, or hopeless: not at all 3. Trouble falling or staying asleep, or sleeping too much: not at all 4. Feeling tired or having little energy: not at all 5. Poor appetite or overeating: not at all 6. Feeling bad about yourself - or that you are a failure or have let yourself or your family down: not at all 7. Trouble concentrating on things, such as reading the newspaper or watching television: not at all 8. Moving or speaking so slowly that other people could have noticed. Or the opposite - being so fidgety or restless that you have been moving around a lot more than usual: not at all 9. Thoughts that you would be better off or of hurting yourself in some way: not at all Total score: 0 Depression Screening Interpretation: Negative Depression Screening Done: Yes 46973 - PHQ-9 Billing: Yes Source: Developed by Drs. Rivera Montoya, Eleonora Barillas, Odin Gracia and colleagues, with an educational milton from [employer]. Thrive Questionnaire Date Thrive assessed: 06/25/24 I am a: Patient What is your living situation today?: I have a steady place to live Within the past 12 months, did the food you bought not last and you didn't have the money to get more?: Never true Within the past 12 months, did you worry whether your food would run out before you got money to buy more?: Never true Do you have trouble paying for medicines?: No Do you have trouble getting transportation to medical appointments?: No Do you have trouble paying your heating and electricity bill?: No Do you have trouble taking care of your child, family member or friend?: No Do you have trouble with day-to-day activities such as bathing, preparing meals, shopping, managing finances, etc.?: No Are you currently unemployed and looking for a job?: No Are you interested in more education?: No Please select the resources that you would like help with: None Currently or been in a relationship where the following occur: No concerns reported THRIVE Score: 0 AUDIT C Alcohol Use Questionnaire (AUDIT-C) 1. How often do you have a drink containing alcohol?: Monthly or less 2. How many drinks containing alcohol do you have on a typical day when you are drinking?: 1 or 2 3. How often do you have six or more drinks on one occasion?: Never Total Score: 1 Score Reviewed/Action Taken: Yes AMRIK-7 AMB Questionnaire AMRIK-7 Date AMRIK - 7 assessed: 06/25/24 Feeling nervous, anxious, or on edge: 0 = Not at all Not being able to stop or control worryin = Not at all Worrying too much about different things: 0 = Not at all Trouble relaxin = Not at all Being so restless that it is hard to sit still: 0 = Not at all Becoming easily annoyed or irritable: 0 = Not at all Feeling afraid as if something awful might happen: 0 = Not at all Total AMRIK-7 score (0-4 normal; 5-9 mild; 10-14 moderate; 15-21 severe): 0 Source: Developed by Drs. Rivera Montoya, Eleonora Barillas, Odin Gracia and colleagues, with an educational milton from [employer]. AMRIK-7 Assessment Billing AMRIK-7 Assessment Tool: AMRIK-7 Assessment 85073 Review of Systems Const Details: Denies chills, +fatigue, Denies fever(s), Denies headache(s) and Denies weakness HEENT Denies change in vision, Denies dizziness, Denies headache(s), Denies hearing loss, Denies nasal congestion, Denies sinus pain, Denies sinus pressure and D enies sore throat Card Denies chest pain, Denies lightheadedness, +dyspnea (intermittently) and Denies other (palpitations) Resp Denies cough, +dyspnea(intermittently) and +wheezing(intermittently) GI Denies abdominal pain, Denies melena, Denies hematochezia, Denies change in bowel habits, Denies dyspepsia and Denies nausea Denies hematuria and Denies dysuria Musc Denies abnormal gait, +myalgias (reports left lower paraspinal pain, none with palpation), Denies arthralgias, Denies numbness and Denies tingling Skin/Breast Denies rash, Denies unusual bruising and Denies wounds Neuro Denies abnormal gait, Denies dizziness, Denies headache(s), Denies memory loss, + numbness, Denies Sensory deficit (Neuro), Denies tingling and Denies weakness Psych Denies anxiety, Denies depression and Denies memory loss Endo Denies cold intolerance, +fatigue, Denies heat intolerance, Denies polydipsia and Denies polyuria Zachary/Lymph Denies easy bleeding and Denies easy bruising Aller/Immun +wheezing Physical exam (Primary Care) Vital Signs: Last Vital Signs Temp 98.1 F 06/25/24 11:20 Pulse 73 06/25/24 11:20 BP 130/80 06/25/24 11:20 Pulse Ox 98 06/25/24 11:20 Oxygen Delivery Method Room Air 06/25/24 11:20 BMI result Body Mass Index 36.0 Tobacco/Smoking Status: Tobacco use Status Tobacco use date assessed 06/25/24 06/25/24 11:24 Patient Tobacco Use Status Never used Tobacco 06/25/24 11:24 e-Cigarette/Vaping Use Never Used 06/25/24 11:24 PHQ-9: PHQ-9 Score PHQ-9: Total score 0 06/27/24 19:08 Depression Screening Interpretation: Negative Thrive Assessment: Date of Thrive Assessment Date Thrive assessed 06/25/24 06/25/24 11:24 Currently or been in a relationship where the following occur: No concerns reported Const Other: General: no acute distress, well developed, alert and awake Nutritional Appearance: well nourished Orientation/consciousness: patient oriented x3 HENMT Head: Yes normocephalic and Yes atraumatic Ears: hearing grossly normal bilaterally and TM's normal bilaterally General nose exam: Normal external nose present and Normal nares present Mouth: Normal oral and palatal mucosa present and moist mucous membrane Eyes Pupils: Equal, round and reactive pupils present and Pupil accommodation reflex normal EOM: EOMs intact bilaterally Neck Neck: Yes normal visual inspection, Yes no lymphadenopathy Thyroid: Thyroid normal Resp Effort & Inspection: normal respiratory effort Auscultation: clear to auscultation bilaterally Cardio Rate: regular rate Rhythm: regular rhythm Heart sounds: S1 normal heart sound present, S2 normal heart sound present, no gallops, no murmurs and no rubs GI Palpation (GI): Abdomen is soft and nontender to palpation Auscultation: normal bowel sounds General: Yes no CVA tenderness Back/Spine/Pelvis Back: no CVA tenderness Cervical Spine: cervical ROM normal and No Cervical spine tenderness Thoracic/Lumbar Spine: Left lower paraspinal tenderness Skin General: warm and dry. Normal skin color. Normal skin turgor Lesions: no lesions Rashes: no rashes Trauma: no lacerations or abrasions Wounds: no wounds Nails: normal Neuro General: patient oriented x3, gait normal Cranial nerves: Yes Equal, round and reactive pupils present Cognition (Neuro): normal cognition Gait exam (Neuro): Normal gait present Extrem General: Yes normal to inspection, No edema and No calf tenderness Psych Appearance: grossly normal Affect: normal affect Attitude: cooperative Thought process: Normal thought process present Coding Level of Care Code Est Pt Level 4 (71530) Diagnoses Paresthesia and pain of extremity R20.2; M79.609 Tiredness R53.83 FANTASMA (obstructive sleep apnea) G47.33 Mild persistent asthma without complication J45.30 Asthma severity: mild Asthma persistence: persistent Asthma complication type: uncomplicated Obesity (BMI 30-39.9) E66.9 Benign essential hypertension I10 Left-sided low back pain without sciatica, unspecified chronicity M54.50 Chronicity: unspecified Back pain laterality: left Sciatica presence: without sciatica Additional Codes AMRIK-7 Assessment Billing - AMRIK-7 Assessment Tool: AMRIK-7 Assessment 13566 ([id number]) PHQ-9 - 80541 - PHQ-9 Billing: Yes ([id number]) Time Spent (min) 35 Assessment & Plan Assessment & Plan (1) Paresthesia and pain of extremity: Code(s): R20.2 - Paresthesia of skin; M79.609 - Pain in unspecified limb Category: Medical Plan: Discussed with patient that the fact that the numbness resolves with mild activity, serious causes would be less likely Possibly, poor circulation in his legs while laying in bed We will order magnesium, vitamin-D, B12 and folate levels (2) Tiredness: Code(s): R53.83 - Other fatigue Category: Medical Plan: Patient reports that this has been ongoing and that he was tested for FANTASMA that showed mild condition He was not given a CPAP, but was encouraged to make lifestyle modifications We will do testosterone level (3) FANTASMA (obstructive sleep apnea): Comment: A mild degree of sleep apnea. The total AHI was 11/hr and the oxygen rand was 79%. Code(s): G47.33 - Obstructive sleep apnea (adult) (pediatric) Category: Medical Plan: Patient reports that this has been ongoing and that he was tested for FANTASMA that s howed mild condition He was not given a CPAP, but was encouraged to make lifestyle modifications We will do testosterone level (4) Asthma: Comment: controlled with daily inhaler Code(s): J45.909 - Unspecified asthma, uncomplicated Category: Medical Qualifiers: Asthma severity: mild Asthma persistence: persistent Asthma c omplication type: uncomplicated Qualified Code(s): J45.30 - Mild persistent asthma, uncomplicated Plan: Reports intermittent shortness of breath/wheezing that resolved with rescue inhaler Reports that he has stopped using the Arnuity Ellipta 100 mcg/actuation because of headaches after using. Patient suspect that the powder in the medication is having a negative effect on him Reports that he was using Pulmicort and this medication worked well for him We will refill the patient Pulmicort Flexhaler 180 mcg/actuation 1 inhale b.i.d. (5) Obesity (BMI 30-39.9): Code(s): E66.9 - Obesity, unspecified Category: Medical Plan: Discussed dietary modification and activity as tolerated (6) Benign essential hypertension: Code(s): I10 - Essential (primary) hypertension Category: Medical Plan: Patient blood pressure was 130/80 in office Reinforced a low-sodium diet Continue lisinopril-hydrochlorothiazide 20-25 mg 1 tab daily (7) Lower back pain: Code(s): M54.50 - Low back pain, unspecified Category: Medical Qualifiers: Chronicity: unspecified Back pain laterality: left Sciatica presence: without sciatica Qualified Code(s): M54.50 - Low back pain, unspecified Plan: Patient comes into of left lower back pain. Urinalysis has been negative. Declined STD testing walk-in clinic Reports using Tylenol with positive effects, but the pain returns intermittently We will try the patient on meloxicam 15 mg daily. Discussed with the patient about not take any other NSAIDs, the patient reports that he only takes Tylenol. If the patient pain continues we will consider lumbar x-ray to further evaluate. Orders: Orders Vitamin D 25-OH Total 06/25/24 E55.9 - Vitamin D deficiency, unspecified, E66.9 - Obesity, unspecified, G47.19 - Other hypersomnia, G47.33 - Obstructive sleep a pnea (adult) (pediatric), I10 - Essential (primary) hypertension, J45.30 - Mild persistent asthma, uncomplicated, M79.609 - Pain in unspecified limb, R06.83 - Snoring, R20.2 - Paresthesia of skin, R53.83 - Other fatigue Glucose Fasting 06/25/24 E55.9 - Vitamin D deficiency, unspecified, E66.9 - Obesity, unspecified, G47.19 - Other hypersomnia, G47.33 - Obstructive sleep apnea (adult) (pediatric), I10 - Essential (primary) hypertension, J45.30 - Mild persistent asthma, uncomplicated, M79.609 - Pain in unspecified limb, R06.83 - Snoring, R20.2 - Paresthesia of skin, R53.83 - Other fatigue Testosterone, Free/Total 06/25/24 E55.9 - Vitamin D deficiency, unspecified, E66.9 - Obesity, unspecified, G47.19 - Other hypersomnia, G47.33 - Obstructive sleep apnea (adult) (pediatric), J45.30 - Mild persistent asthma, uncomplicated, M79.609 - Pain in unspecified limb, R06.83 - Snoring, R20.2 - Paresthesia of skin, R53.83 - Other fatigue Lipid Panel 06/25/24 E78.00 - Pure hypercholesterolemia, unspecified TSH reflex Free T4 Today E66.9 - Obesity, unspecified, E78.00 - Pure hypercholesterolemia, unspecified, G47.19 - Other hypersomnia, G47.33 - Obstructive sleep apnea (adult) (pediatric), I10 - Essential (primary) hypertension, R53.83 - Other fatigue Magnesium 06/25/24 E55.9 - Vitamin D deficiency, unspecified, E66.9 - Obesity, unspecified, G47.19 - Other hypersomnia, G47.33 - Obstructive sleep apnea (adult) (pediatric), I10 - Essential (primary) hypertension, J45.30 - Mild persistent asthma, uncomplicated, M79.609 - Pain in unspecified limb, R06.83 - Snoring, R20.2 - Paresthesia of skin, R53.83 - Other fatigue Vitamin B12 and Folate 06/25/24 E55.9 - Vitamin D deficiency, unspecified, E66.9 - Obesity, unspecified, G47.19 - Other hypersomnia, G47.33 - Obstructive sleep apnea (adult) (pediatric), I10 - Essential (primary) hypertension, J45.30 - Mild persistent asthma, uncomplicated, M79.609 - Pain in unspecified limb, R06.83 - Snoring, R20.2 - Paresthesia of skin, R53.83 - Other fatigue PSA,Total (Free>4and<10) 06/25/24 E55.9 - Vitamin D deficiency, unspecified, E66.9 - Obesity, unspecified, G47.19 - Other hypersomnia, G47.33 - Obstructive sleep apnea (adult) (pediatric), I10 - Essential (primary) hypertension, J45.30 - Mild persistent asthma, uncomplicated, M79.609 - Pain in unspecified limb, R06.83 - Snoring, R20.2 - Paresthesia of skin, R53.83 - Other fatigue Medications: New meloxicam 15 mg PO DAILY 30 tabs 3RF Refilled Pulmicort Flexhaler 180 mcg/actuation (budesonide) 1 inh inhalation BID 1 ea 3RF NS Discontinued Arnuity Ellipta 100 mcg/actuation (fluticasone furoate) Discontinued Reason: Patient Refused 1 inh inhalation DAILY 30 days 30 ea 5RF NS
[2024-06-25 11:20] VITALS: BP 130/80; PULSE 73; TEMP 36.7; O2SAT 98; BMI 36.0
--- OUTSIDE RECORDS SUMMARY | 2024-06-25 11:50 | XMS_ITS | Clinical Summary ---
Author Organization [facility] ity Address [address] [place] [address] Care Team Providers Care Engineer And Geologist Name Role Phone Unavailable Primary Care Provider Unavailabl e Social History Tobacco Use Types Packs/Day Years Used Date Smoking Tobacco: Never Assessed Sex and Gender Information Value Date Recorded Sex Assigned at Not on file Legal Sex Male 5:06 AM EST Gender Identity Not on file Sexual Orientation Not on file Plan of Treatment Health Maintenance Due Date Last Done Comments DTaP,Tdap,and Td Vaccines (1 - Tdap) 1995 Hepatitis B Vaccines (1 of 3 - 19+ 3-dose series) 1995 COVID-19 Vaccine (2023-2 5 season) 2024 Influenza Vaccine (#1) 2024 HIB Vaccines Aged Out No longer eligi ble based on patient's age to complete this topic HPV Vaccines Aged Out No longer eligi ble based on patient's age to complete this topic Hepatitis A Vaccines Aged Out No long er eligible based on patient's age to complete this topic IPV Vaccines Aged Out No longer eligi ble based on patient's age to complete this topic MMR Vaccines Aged Out No longer eligi ble based on patient's age to complete this topic Meningococcal ACWY Vaccine Aged Out N o longer eligible based on patient's age to complete this topic Meningococcal B Vacine Aged Out No lo nger eligible based on patient's age to complete this topic Pneumococcal Vaccine: Pediat rics (0 to 5 Years) and At-Risk Patients (6 to 64 Years) Aged Out No longer eligible b ased on patient's age to complete this topic RSV Immunization Patients Un anju 20 months Aged Out No longer eligible b ased on patient's age to complete this topic Varicella Vaccines Aged Out No longer eligible based on patient's age to complete this topic
== END 2024-06-25 11:54 | disposition home or self-care (01) ==
PROVIDERS: PCP Internal Medicine
DX: R20.2 Paresthesia of skin (principal); E66.9 Obesity, unspecified; Z68.36 Body mass index [BMI] 36.0-36.9, adult; M79.609 Pain in unspecified limb; R53.83 Other fatigue; G47.33 Obstructive sleep apnea (adult) (pediatric); J45.30 Mild persistent asthma, uncomplicated; I10 Essential (primary) hypertension; M54.50 Low back pain, unspecified

== ENCOUNTER → 2024-06-25 11:11 | Outpatient (BNVA) | payer OTHER, SELFPAY | PROVIDERS: PCP Internal Medicine | DX: R20.2 Paresthesia of skin (principal); M79.609 Pain in unspecified limb; R53.83 Other fatigue; G47.33 Obstructive sleep apnea (adult) (pediatric); J45.30 Mild persistent asthma, uncomplicated; E66.9 Obesity, unspecified; I10 Essential (primary) hypertension; M54.50 Low back pain, unspecified; Z79.899 Other long term (current) drug therapy | CPT/HCPCS: 96127 ==

== ENCOUNTER 2024-06-30 08:09 | Outpatient (REF) | payer OTHER, SELFPAY ==
--- OUTSIDE RECORDS SUMMARY | 2024-06-30 08:13 | XMS_ITS | Clinical Summary ---
Author Organization [facility] [employer] [facility] ity Address [address] [place] [address] Care Team Providers Care Nursery Nurse Name Role Phone Unavailable Primary Care Provider [...]
[2024-06-30 09:35] LABS: Cholesterol 180 mg/dL (<200); Glucose Fasting 103 mg/dL (60-99); HDL Cholesterol 47 mg/dL (>40); LDL Cholesterol Calculated 104 mg/dL (<100); Magnesium 1.9 mg/dL (1.6-2.6); Triglycerides 147 mg/dL (<150)
[2024-06-30 09:39] LABS: PSA,Total (Free>4and<10) 0.44 ng/mL (0.00-4.00)
[2024-06-30 09:54] LABS: Vitamin D 25-OH Total 27.6 ng/mL (>30)
[2024-06-30 09:56] LABS: Folate 10.7 ng/mL (> or = 4.0); Vitamin B12 274 pg/mL (200-900)
[2024-07-04 15:39] LABS: Testosterone, Free 59.5 pg/mL (35.0-155.0); Testosterone, Total 340 ng/dL (250-1100)
== END 2024-06-30 08:10 | disposition home or self-care (01) ==
LOC: HO.LAB 08:09
DX: M79.602 Pain in left arm (principal); B00.9 Herpesviral infection, unspecified; Z12.5 Encounter for screening for malignant neoplasm of prostate; G47.33 Obstructive sleep apnea (adult) (pediatric); E55.9 Vitamin D deficiency, unspecified; J45.30 Mild persistent asthma, uncomplicated; E66.9 Obesity, unspecified; I10 Essential (primary) hypertension; R53.83 Other fatigue; R20.2 Paresthesia of skin; R06.83 Snoring; G47.19 Other hypersomnia; E78.00 Pure hypercholesterolemia, unspecified
CPT/HCPCS: 36415; 80061; 82306; 82607; 82746; 82947; 83735; 84153; 84402; 84403; 84443; 93005

== ENCOUNTER 2024-06-30 08:49 | Outpatient (AMB) | payer OTHER, SELFPAY ==
[2024-06-30 09:11] VITALS: BP 136/88; PULSE 72; O2SAT 98
--- NOTE | 2024-06-30 09:11 | AM.OFFWIN_ITS ---
Intake Vital Signs 06/30/24 09:11 Weight 230 lb BP 136/88 Blood Pressure Location Rt brachial Position Sitting Pulse 72 Pulse Source Pulse Oximeter Pulse Oximetry (%) 98 Oxygen Delivery Method Room Air Intake Visit Reasons: EP pain in lt breast area, rash around mouth Intake Note: Patient here for left sided breast are pain that started a couple of days ago and noticed rash around mouth on saturday Patient Tobacco Use Status: Never used Tobacco Allergies No Known Allergies [No Known Allergies*] Allergy (Verified 06/30/24 09:12) Do you need a note to return to daycare/school/sports/work: No HPI HPI Comments History of Present Illness Details History of Present Illness The patient is a 49-year-old male presenting with episodic pain in the left axillary region along with shortness of breath on exertion. This discomfort commenced three days ago, characterized by a stretching sensation and numbness and tingling, particularly noticed while carrying objects or performing act ivities. Shortness of breath accompanies these episodes and became more noticeable over the last week, coinciding with increased physical exertion. The patient has a medical history of essential hypertension, for which he is taking medication, hyperlipidemia, and asthma, though the medication for asthma is currently held due to pending insurance approval. Family history includes depression and malignancies, but not heart disease or myocardial infarction. Recent modifications in medication include the introduction of meloxicam, with no relief of the pain. One episode of dizziness was recorded, while chest pain and radiating back pain were absent. denies episodes of sweating, chest pain that radiates to his back, abdominal pain or nausea. A rash developed in the oral region and progressed over the following days. Patient states it started 2 days ago, the lesions are not painful. He denies a history of cold sores. He just says they are dry and crusted over at this point Physical Exam General: Cooperative, healthy appearing, comfortable, no acute distress and well developed Orientation: Patient oriented x3 Limitations: No limitations Head: Normal to inspection Ears: Hearing grossly normal bilaterally Nose: Normal external nose present Face and sinus: Normal facial exam, 3 very small crusted over lesions on the lips Eyes: Appearance normal, both eyes and all related structures Neck: Normal visual inspection and Yes full ROM Respiratory: Normal respiratory effort and able to speak in complete sentences. Clear to auscultation bilaterally Cardiovascular: Regular rate and rhythm. Normal S1 and S2 Skin: Rash noted Neuro: Patient oriented x3 Extremities: Normal to inspection [facility] Medical History FANTASMA (obstructive sleep apnea) Vitamin D deficiency Fatigue Obesity (BMI 30-39.9) Pure hypercholesterolemia Urinary incontinence Benign essential hypertension Asthma Anxiety Surgical History No significant past surgical history Family History Mother Hypertension Breast cancer Maternal Grandmother Coronary artery disease Social History Housing: House Are you a primary resident care aide to a significant other at home: No Do you presently have visiting nurse or other home services: No Alcohol intake: never Patient Tobacco Use Status: Never used Tobacco e-Cigarette/Vaping Use: Never Used Second Hand Smoke Exposure: No service: No Current occupational status: employed Current occupation: [employer] Cognitive needs: No Hearing needs: No Vision needs: No Review of Systems Const All systems reviewed & are unremarkable except as noted in HPI and below Physical Exam Vital Signs: Last Vital Signs Pulse 72 06/30/24 09:11 BP 136/88 06/30/24 09:11 Pulse Ox 98 06/30/24 09:11 Oxygen Delivery Method Room Air 06/30/24 09:11 Office Procedures EKG 58097-[id number], Complete Assessment & Plan Assessment & Plan (1) Left arm pain: Code(s): M79.602 - Pain in left arm Plan: Patient not currently having pain, has been intermittent left sided arm, shoulder tingling and numbness which is worse with exertion. VSS and pt well appearing today. The plan involves performing an immediate EKG to evaluate any cardiac concerns related to the patient's symptoms. This action is to rule out any immediate cardiac concerns, given the patient's symptoms of exertion- triggered discomfort and dyspnea. EKG is NSR at 67BPM, no acute changes. I did explain to the patient that this does not rule out a cardiac issue because he needs blood work done to do that. I encouraged him to go to the emergency department or call 911 if he starts having symptoms. I advised he not drive himself to the emergency department. I did message his primary care doctor to see if they would like to do a further workup such as a cardiac stress test. There is an emphasis on further evaluation within an emergency department setting, especially to conduct blood testing for cardiac enzyme levels to rule out myocardial infarction. It is strongly advised that the patient visit the emergency department if further episodes occur, particularly noting that a stress test may be needed if the EKG indicates potential issues. Additionally, management of asthma remains pending until insurance approval is processed for the inhaled medication budesonide. The continuation of treatment for pre-existing conditions, including hypertension and hyperlipidemia, should align with established care plans through the primary care provider. Patient was informed and verbally consented to the use of an ambient scribe for clinic note documentation during this visit. 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 Coding Level of Care Code Est Pt Level 4 (43653) Diagnoses Left arm pain M79.602 HSV-1 infection B00.9 CPT Codes EKG - CPT: 45887-[id number], Complete ([id number])
--- OUTSIDE RECORDS SUMMARY | 2024-06-30 09:18 | XMS_ITS | Clinical Summary ---
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
--- OUTSIDE RECORDS SUMMARY | 2024-06-30 09:18 | XMS_ITS | Patient Health Record ---
Author Organization [facility] Address [address] [place] [address] Support Name Relationship Address Phone YUSUF MELGOZA Guarantor Unknown [phone] Allergies No Known Allergies Reason For Referral No Information Medications Medication SIG (Take, Route, Frequency, Duration) Notes Start Date End Date Status amLODIPine Benzoate 10mg Active Omeprazole 20 MG 1 capsule 30 minutes before morning meal Orally Once a day for 30 Active Albuterol Sulfate HFA 108 (90 Base) MCG/ACT 1 puff as needed Inhalation every 4 hrs for 90 days Active Advair Diskus 250-50 MCG/DOSE 1 puff Inhalation Twice a day for 90 days Not-Taking Medrol 4 MG as directed Orally Active Losartan Potassium 25 MG 1 tablet Orally Once a day for 30 day(s) 10/15/2020 Active Social History Tobacco Use: Social History Observation Description Date Details (start date - stop date) Never Smoker NA - NA Tobacco Use/Smoking Question Answer Notes Are you a: never smoker Problems Problem Type SNOMED Code ICD Code Onset Dates Problem Status W/U Status Risk Notes Problem 66838198 Dysuria (R30.0) Active confirmed Problem 642863921 Flank pain (R10.9) Active confirmed Problem 261774947 Mild intermitten t asthma without complication (J45.20) Active confirmed Plan Of Treatment No Information Medical (General) History Medical History History ICD Code Asthma HTN Surgical History Surgery Date(Month/Year) none Hospitalization History Reason Date(Month/Year) none
== END 2024-06-30 09:45 | disposition home or self-care (01) ==
PROVIDERS: PCP Internal Medicine; Visit Provider Physician Assistant
DX: M79.602 Pain in left arm (principal); B00.9 Herpesviral infection, unspecified

== ENCOUNTER 2024-09-22 16:08 | Outpatient (AMB) | payer OTHER, SELFPAY ==
[2024-09-22 16:11] VITALS: BP 140/92; PULSE 84; RESP 18; TEMP 37.2; O2SAT 96; BMI 35.9
--- NOTE | 2024-09-22 16:11 | A.OFFPC_ITS ---
Vital Signs 09/22/24 16:11 Height 5 ft 7 in Weight 229 lb 3.2 oz BMI 35.9 BP 140/92 H Blood Pressure Location Lt brachial Position Sitting Respiration 18 Pulse 84 Pulse Source Pulse Oximeter Temp 99.0 F Temp Source Oral Pulse Oximetry (%) 96 Oxygen Delivery Method Room Air Intake Visit Reasons: 3 month f/u Parenting Skills Instructor Required: No Accompanied by: Self / Same As Patient Allergies No Known Allergies [No Known Allergies*] Allergy (Verified 09/22/24 16:44) Medication List - Last Reconciled 09/27/24 by JOHANNE [place] albuterol sulfate 90 mcg/actuation 2 puffs inhalation Q6H PRN amlodipine 5 mg PO DAILY 90 days cholecalciferol (vitamin D3) 50 mcg PO DAILY 90 days fluticasone furoate 200 mcg/actuation (Arnuity Ellipta) 1 inh inhalation DAILY 30 days lisinopril-hydrochlorothiazide 20-25 mg 1 tab PO DAILY loratadine (Claritin) 10 mg PO DAILY PRN meloxicam 15 mg PO DAILY Tobacco use date assessed: 09/22/24 Dental Screening Dental Screen Date: 09/22/24 Did you have a dental visit in the last 12 months?: Yes Did you have a dental problem in the last 6 months where you did not have access to dental care?: No Was dental information given to patient?: Patient has dentist HPI 3 month f/u HPI Details The patient is a 49-year-old male presenting with foot pain and numbness, which is mainly severe upon waking and decreases during the day with p ain medication. Symptoms have persisted despite rest from physical activity. The primary area of concern is the right foot, though symptoms can occur bilaterally. The patient has a history of hypertension, generally well managed, but occasionally misses his medication. He reports dealing with shortness of breath potentially linked to past asbestos exposure during home renovations years ago that resulted in hospital admission. Despite resting and previous medical evaluations, the pain and shortness of breath continue to be prominent issues. Patient blood pressure elevated in office at 140/92 Patient reports that his blood pressures at home are more like 126/80, 129/97. Reports a sometimes forgets to take the medication. As it relates to the patient's pain at the balls of feet, he reports 7/10 before taking Tylenol and 3/10 after taking the medication. He also complained of bilateral knee pain, right elbow pain and right wrist pain No trauma or injury to areas. 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 [facility] Medical History FANTASMA (obstructive sleep apnea) Vitamin D deficiency Fatigue Obesity (BMI 30-39.9) Pure hypercholesterolemia Urinary incontinence Benign essential hypertension Asthma Anxiety Surgical History No significant past surgical history Family History Mother Hypertension Breast cancer Maternal Grandmother Coronary artery disease Social History Housing: House Are you a primary complex care nurse to a significant other at home: No Do you presently have visiting nurse or other home services: No Alcohol intake: never Patient Tobacco Use Status: Never used Tobacco e-Cigarette/Vaping Use: Never Used Second Hand Smoke Exposure: No service: No Current occupational status: employed Current occupation: [employer] Cognitive needs: No Hearing needs: No Vision needs: No Questionnaire PHQ-9 Over the last 2 weeks, how often have you been bothered by any of the following problems? 1. Little interest or pleasure in doing things: several days 2. Feeling down, depressed, or hopeless: not at all 3. Trouble falling or staying asleep, or sleeping too much: not at all 4. Feeling tired or having little energy: not at all 5. Poor appetite or overeating: not at all 6. Feeling bad about yourself - or that you are a failure or have let yourself or your family down: not at all 7. Trouble concentrating on things, such as reading the newspaper or watching television: not at all 8. Moving or speaking so slowly that other people could have noticed. Or the opposite - being so fidgety or restless that you have been moving around a lot more than usual: not at all 9. Thoughts that you would be better off or of hurting yourself in some way: not at all Total score: 1 Depression Screening Interpretation: Negative Depression Screening Done: Yes Source: Developed by Drs. Rivera Montoya, Eleonora Barillas, Odin Gracia and colleagues, with an educational milton from [employer]. Thrive Questionnaire Date Thrive assessed: 09/22/24 I am a: Patient What is your living situation today?: I have a steady place to live Within the past 12 months, did the food you bought not last and you didn't have the money to get more?: Often true Within the past 12 months, did you worry whether your food would run out before you got money to buy more?: Often true Do you have trouble paying for medicines?: Yes Do you have trouble getting transportation to medical appointments?: No Do you have trouble paying your heating and electricity bill?: Yes Do you have trouble taking care of your child, family member or friend?: No Do you have trouble with day-to-day activities such as bathing, preparing meals, shopping, managing finances, etc.?: No Are you currently unemployed and looking for a job?: No Are you interested in more education?: No Currently or been in a relationship where the following occur: I choose not to answer THRIVE Score: 3 AUDIT C Alcohol Use Questionnaire (AUDIT-C) 1. How often do you have a drink containing alcohol?: Never 3. How often do you have six or more drinks on one occasion?: Never Total Score: 0 Score Reviewed/Action Taken: No AMRIK-7 AMB Questionnaire AMRIK-7 Date AMRIK - 7 assessed: 09/22/24 Feeling nervous, anxious, or on edge: 1 = Several days Not being able to stop or control worryin = Several days Worrying too much about different things: 1 = Several days Trouble relaxin = Several days Being so restless that it is hard to sit still: 0 = Not at all Becoming easily annoyed or irritable: 0 = Not at all Feeling afraid as if something awful might happen: 1 = Several days Total AMRIK-7 score (0-4 normal; 5-9 mild; 10-14 moderate; 15-21 severe): 5 Source: Developed by Drs. Rivera Montoya, Eleonora Barillas, Odin Gracia and colleagues, with an educational milton from [employer]. AMRIK-7 Assessment Billing AMRIK-7 Assessment Tool: AMRIK-7 Assessment 38755 Review of Systems Const Denies headache(s) Eyes Denies loss of vision ENT Denies vertigo, Denies dizziness, Denies headache(s) and Denies sore throat Card Denies chest pain, Denies leg edema, Denies lightheadedness and Reports dyspnea (Intermittent) Resp Denies cough, Denies hemoptysis, Reports dyspnea (Intermittent) and Denies wheezing GI Denies abdominal pain, Denies melena, Denies constipation, Denies diarrhea and Denies vomiting Denies dysuria, Denies urinary frequency and Denies urinary urgency Musc Reports arthralgias (Bilateral knees, right elbow right wrist), Denies joint swelling, Denies numbness, Denies tingling and Reports other (Foot pain, both but worse in right) Neuro Denies Abnormal speech present, Denies vertigo, Denies dizziness, Denies headache(s), Denies loss of vision, Denies numbness and Denies tingling Zachary/Lymph Denies easy bleeding and Denies easy bruising Aller/Immun Denies wheezing Physical exam (Primary Care) Vital Signs: Last Vital Signs Temp 99.0 F 09/22/24 16:11 Pulse 84 09/22/24 16:11 Resp 18 09/22/24 16:11 BP 140/92 H 09/22/24 16:11 Pulse Ox 96 09/22/24 16:11 Oxygen Delivery Method Room Air 09/22/24 16:11 BMI result Body Mass Index 35.9 Tobacco/Smoking Status: Tobacco use Status Tobacco use date assessed 09/22/24 09/22/24 16:20 Patient Tobacco Use Status Never used Tobacco 09/22/24 16:20 e-Cigarette/Vaping Use Never Used 09/22/24 16:20 PHQ-9: PHQ-9 Score PHQ-9: Total score 1 09/22/24 16:47 Depression Screening Interpretation: Negative Thrive Assessment: Date of Thrive Assessment Date Thrive assessed 09/22/24 09/22/24 16:20 Currently or been in a relationship where the following occur: I choose not to answer Const General: healthy appearing, no acute distress, alert and awake Nutritional Appearance: well nourished Orientation/consciousness: oriented to person, oriented to place and oriented to time HENMT Ears: TM's normal bilaterally General nose exam: Normal nasal mucous membranes and turbinates present Eyes Conjunctivae: conjunctivae normal Sclerae: sclerae normal Pupils: Equal, round and reactive pupils present Neck Neck: Yes no lymphadenopathy and Yes no JVD Thyroid: Thyroid normal Carotids: no bruits Resp Effort & Inspection: normal respiratory effort and not tachypneic Auscultation: no crackles, no rales, no rhonchi and no wheezes Cardio Rate: regular rate Rhythm: regular rhythm Heart sounds: no murmurs and normal S1 and S2 GI Palpation (GI): Soft to palpation, nontender, no hepatomegaly and no splenomegaly Auscultation: normal bowel sounds General: Yes no CVA tenderness Back/Spine/Pelvis Back: no CVA tenderness Skin General skin exam: no rashes or lesions noted and dry skin Neuro General: oriented to person, oriented to place and oriented to time Cranial nerves: Yes Equal, round and reactive pupils present Speech: No Abnormal speech present Gait exam (Neuro): Normal gait present Motor exam (neuro): no tremor noted Extrem Right upper extremity: full ROM, elbow/forearm Details: no tenderness and no swelling and wrist Details: no tenderness and no swelling Left upper extremity: full ROM Right lower extremity: full ROM, knee Details: no tenderness and no swelling and foot Details: normal to inspection; no edema Left lower extremity: full ROM, knee Details: no tenderness and no swelling and foot Details: normal to inspection; no edema Psych Mental Status: mental status grossly normal Speech and movement: Normal speech and movement present Affect: normal affect Attitude: cooperative Thought process: Normal thought process present Coding Level of Care Code Est Pt Level 4 (19248) Diagnoses Benign essential hypertension I10 SOB (shortness of breath) R06.02 FANTASMA (obstructive sleep apnea) G47.33 Vitamin D deficiency E55.9 Mild persistent asthma without complication J45.30 Asthma severity: mild Asthma persistence: persistent Asthma complication type: uncomplicated Obesity (BMI 30-39.9) E66.9 Chronic pain of both knees M25.561; M25.562; G89.29 Chronicity: chronic Right elbow pain M25.521 Right wrist pain M25.531 Plantar fasciitis M72.2 Additional Codes AMRIK-7 Assessment Billing - AMRIK-7 Assessment Tool: AMRIK-7 Assessment 91487 ([id number]) Time Spent (min) 41 Assessment & Plan Assessment & Plan (1) Benign essential hypertension: Code(s): I10 - Essential (primary) hypertension Category: Medical Plan: Blood pressure 140/90 in office. Reports inconsistency with taking medication Encouraged dash diet and activity as tolerated Encouraged amlodipine 5 mg daily, lisinopril-hydrochlorothiazide 20-25 mg daily compliance (2) SOB (shortness of breath): Code(s): R06.02 - Shortness of breath Category: Medical Plan: Reports that his shortness of breath started after helping someone move and he is convinced that he was exposed to asbestos. Suspected asthma related symptoms on his prior visit. Albuterol sulfate 90 mcg/actuation 2 puff as needed q.6 H. we will do a chest x-ray to further evaluate. (3) FANTASMA (obstructive sleep apnea): Comment: A mild degree of sleep apnea. The total AHI was 11/hr and the oxygen rand was 79%. Code(s): G47.33 - Obstructive sleep apnea (adult) (pediatric) Category: Medical Plan: Continue CPAP (4) Vitamin D deficiency: Code(s): E55.9 - Vitamin D deficiency, unspecified Category: Medical Plan: Continue vitamin-D3 50 mcg daily (5) Asthma: Comment: controlled with daily inhaler Code(s): J45.909 - Unspecified asthma, uncomplicated Category: Medical Qualifiers: Asthma severity: mild Asthma persistence: persistent Asthma complication type: uncomplicated Qualified Code(s): J45.30 - Mild persistent asthma, uncomplicated Plan: Reports intermittent shortness of breath/wheezing that resolved with rescue inhaler Reports that he has stopped using the Arnuity Ellipta 100 mcg/actuation because of headaches after using. Patient suspect that the powder in the medication is having a negative effect on him Reports that he was using Pulmicort and this medication worked well for him Pulmicort Flexhaler 180 mcg/actuation 1 inhale b.i.d. was refilled and Arnuity Ellipta was discontinued Currently, Arnuity Ellipta is back in the patient med list, which he initially said was affecting him Suspect that the patient is not currently taking his long-acting inhaler, hence his sob and needing to use rescue inhaler He thinks his sob is due to exposure to asbestos, will order a chest xray to further evaluate (6) Obesity (BMI 30-39.9): Code(s): E66.9 - Obesity, unspecified Category: Medical Plan: Discussed macronutrients and cutting simple and flour based carbs from the diet and increasing vegetables and good proteins and fats. Discussed exercising 3-5 days a week for at least 30 minutes to help boost metabolism and maintain strong muscles to maintain weight. (7) Bilateral knee pain: Code(s): M25.561 - Pain in right knee; M25.562 - Pain in left knee Category: Medical Qualifiers: Chronicity: chronic Qualified Code(s): M25.561 - Pain in right knee; M25.562 - Pain in left knee; G89.29 - Other chronic pain Plan: Reports that his bilateral knee pain isn't severe and it is intermittent. Appears to be wear and tear. Continue OTC as needed. (8) Right elbow pain: Code(s): M25.521 - Pain in right elbow Category: Medical Plan: Similarly, right elbow pain is mild in nature and intermittent (9) Right wrist pain: Code(s): M25.531 - Pain in right wrist Category: Medical Plan: Intermittent and mild, continue range of motion in OTC as needed. May apply warm or cold compress on 20 minute intervals. (10) Plantar fasciitis: Code(s): M72.2 - Plantar fascial fibromatosis Category: Medical Plan: We will order an x-ray to rule out bone spurs. Suspect plantar fasciitis due to his pain worsen in the morning when he gets up and gets better throughout the day. Encouraged the patient to look into getting more comfortable shoes. His job requires for him to be on his feet for long periods. Continue meloxicam 15 mg daily as needed Orders: Orders CRP High Sensitivity 09/23/24 G47.19 - Other hypersomnia, G47.33 - Obstructive sleep apnea (adult) (pediatric), I10 - Essential (primary) hypertension, M79.609 - Pain in unspecified limb, R06.02 - Shortness of breath, R20.2 - Paresthesia of skin, R53.83 - Other fatigue Vitamin B12 and Folate 09/23/24 G47.19 - Other hypersomnia, G47.33 - Obstructive sleep apnea (adult) (pediatric), I10 - Essential (primary) hypertension, M79.609 - Pain in unspecified limb, R06.02 - Shortness of breath, R20.2 - Paresthesia of skin, R53.83 - Other fatigue B Type Natriuretic Peptide 09/23/24 G47.19 - Other hypersomnia, G47.33 - Obstructive sleep apnea (adult) (pediatric), I10 - Essential (primary) hypertension, M79.609 - Pain in unspecified limb, R06.02 - Shortness of breath, R20.2 - Paresthesia of skin, R53.83 - Other fatigue Lyme IgG/IgM w/reflex to WB 09/23/24 G47.19 - Other hypersomnia, G47.33 - Obstructive sleep apnea (adult) (pediatric), I10 - Essential (primary) hypertension, M79.609 - Pain in unspecified limb, R06.02 - Shortness of breath, R20.2 - Paresthesia of skin, R53.83 - Other fatigue Comprehensive Met. Panel 09/23/24 G47.19 - Other hypersomnia, G47.33 - Obstructive sleep apnea (adult) (pediatric), I10 - Essential (primary) hypertension, M79.609 - Pain in unspecified limb, R06.02 - Shortness of breath, R20.2 - Paresthesia of skin, R53.83 - Other fatigue Complete Blood Count Auto Diff 09/23/24 G47.19 - Other hypersomnia, G47.33 - Obstructive sleep apnea (adult) (pediatric), I10 - Essential (primary) hypertension, M79.609 - Pain in unspecified limb, R06.02 - Shortness of breath, R20.2 - Paresthesia of skin, R53.83 - Other fatigue XR chest 2V 09/23/24 G47.19 - Other hypersomnia, G47.33 - Obstructive sleep apnea (adult) (pediatric), I10 - Essential (primary) hypertension, M79.609 - Pain in unspecified limb, R06.02 - Shortness of breath, R20.2 - Paresthesia of skin, R53.83 - Other fatigue Uric Acid 09/23/24 M25.50 - Pain in unspecified joint Erythrocyte Sedimentation Rate 09/23/24 G47.19 - Other hypersomnia, G47.33 - Obstructive sleep apnea (adult) (pediatric), I10 - Essential (primary) hypertension, M79.609 - Pain in unspecified limb, R06.02 - Shortness of breath, R20.2 - Paresthesia of skin, R53.83 - Other fatigue Vitamin D 25-OH Total 09/23/24 G47.19 - Other hypersomnia, G47.33 - Obstructive sleep apnea (adult) (pediatric), I10 - Essential (primary) hypertension, M79.609 - Pain in unspecified limb, R06.02 - Shortness of breath, R20.2 - Paresthesia of skin, R53.83 - Other fatigue XR Foot [place] 3V 09/23/24 G47.19 - Other hypersomnia, G47.33 - Obstructive sleep apnea (adult) (pediatric), I10 - Essential (primary) hypertension, M79.609 - Pain in unspecified limb, R06.02 - Shortness of breath, R20.2 - Paresthesia of skin, R53.83 - Other fatigue
--- OUTSIDE RECORDS SUMMARY | 2024-09-22 16:37 | XMS_ITS | Clinical Summary ---
Author Organization [facility] ity Address [address] [place] [address] Care Team Providers Care Pricing Associate Name Role Phone Unavailable Primary Care Provider [...] Vaccine (2023-2 5 season) 2024 Influenza Vaccine (Season Ended) 2025 HIB Vaccines Aged Out No longer eligi [...] age to complete this topic Meningococcal B Vaccine Aged Out No l onger eligible based on patient's age to complete [...]
== END 2024-09-22 17:20 | disposition home or self-care (01) ==
PROVIDERS: PCP Internal Medicine
DX: I10 Essential (primary) hypertension (principal); R06.02 Shortness of breath; E66.9 Obesity, unspecified; Z68.35 Body mass index [BMI] 35.0-35.9, adult; G47.33 Obstructive sleep apnea (adult) (pediatric); E55.9 Vitamin D deficiency, unspecified; J45.30 Mild persistent asthma, uncomplicated; M25.561 Pain in right knee; M25.562 Pain in left knee; G89.29 Other chronic pain; M25.521 Pain in right elbow; M25.531 Pain in right wrist

== ENCOUNTER → 2024-09-22 16:08 | Outpatient (BNVA) | payer SELFPAY | PROVIDERS: PCP Internal Medicine | DX: I10 Essential (primary) hypertension (principal); R06.02 Shortness of breath; G47.33 Obstructive sleep apnea (adult) (pediatric); E55.9 Vitamin D deficiency, unspecified; J45.30 Mild persistent asthma, uncomplicated; E66.9 Obesity, unspecified; Z68.35 Body mass index [BMI] 35.0-35.9, adult; M25.561 Pain in right knee; M25.562 Pain in left knee; G89.29 Other chronic pain; M25.521 Pain in right elbow; M25.531 Pain in right wrist; M72.2 Plantar fascial fibromatosis; Z79.899 Other long term (current) drug therapy; Z99.89 Dependence on other enabling machines and devices | CPT/HCPCS: 96127; 99212 ==

== ENCOUNTER 2024-09-23 08:06 | Outpatient (REF) | payer OTHER, SELFPAY ==
--- NOTE | ~2024-09-23 | XR_ITS ---
CLINICAL HISTORY: R20.2 - Paresthesia of skin 6 views bilateral foot Comparison: None Findings: No acute fracture. No dislocation. Early degenerative changes right tibiotalar joint. Small right calcaneal enthesophytes. No erosions. No radiopaque foreign body. Small right ankle joint effusion. Impression: 1. Right ankle small joint effusion, small calcaneal enthesophytes and early degenerative changes tibiotalar joint. 2. Unremarkable left foot. 3. No acute findings. This document has been electronically signed by: Mara Quintero MD on 09/23/2024 17:17:26
--- NOTE | ~2024-09-23 | XR_ITS ---
CLINICAL HISTORY: R20.2 - Paresthesia of skin 2 view chest x-ray Comparison: CR/SR - XR CHEST 2V - 09/14/22 20:13 EDT Findings: No consolidation or effusion. Normal size heart. No acute fracture. IMPRESSION: 1. No acute findings. This document has been electronically signed by: Domingo Rushing MD on 09/23/2024 14:25:18
--- OUTSIDE RECORDS SUMMARY | 2024-09-23 08:11 | XMS_ITS | Clinical Summary ---
Author Organization [facility] ity Address [address] [place] [address] Care Team Providers Care [place] Technician Name Role Phone Unavailable Primary Care Provider [...]
[2024-09-23 08:28] LABS: MANUAL DIFF FLAG NO
[2024-09-23 09:15] LABS: Basophils Percent Auto 0.4 % (0-2); Eosinophils Absolute Auto 0.2 X10*3/uL (0.0-0.4); Hematocrit 45.8 % (42.0-52.0); Hemoglobin 14.5 g/dl (14.0-18.0); Imm Gran Abs Auto 0.04 X10*3/uL (0.00-0.03); Imm Gran Pct Auto 0.6 % (0.0-0.4); Lymphocytes Absolute Auto 2.4 X10*3/uL (1.2-4.9); Lymphocytes Percent Auto 33.5 % (20-40); Mean Corpuscular HGB Conc 31.7 g/dl (31.0-36.0); Mean Corpuscular Hemoglobin 26.8 pg (27.0-33.0); Mean Corpuscular Volume 84.7 fL (80.0-98.0); Mean Platelet Volume 10.1 fL (9.4-12.4); Monocytes Absolute Auto 0.6 X10*3/uL (0.1-1.2); Monocytes Percent Auto 8.8 % (2-11); Neutrophils Absolute Auto 3.9 x10*3/uL (2.0-8.3); Neutrophils Percent Auto 53.7 % (45-73); Platelet Count 225 X10*3/uL (160-400); Red Blood Count 5.41 X10*6/uL (4.60-5.80); Red Cell Distribution Width 13.2 % (11.0-16.0); White Blood Count 7.3 X10*3/uL (4.8-10.8)
[2024-09-23 10:06] LABS: Erythrocyte Sedimentation Rate 1 MM/HR (0-15)
[2024-09-23 10:24] LABS: B Type Natriuretic Peptide < 10 pg/mL (<100)
[2024-09-23 10:41] LABS: Alanine Aminotransferase 29 U/L (0-40); Albumin Level 4.8 g/dL (3.5-5.0); Alkaline Phosphatase 61 U/L (39-117); Anion Gap 13 (12-20); Aspartate Amino Transferase 22 U/L (5-37); Bilirubin Total 0.5 mg/dL (0.0-1.0); Blood Urea Nitrogen 13 mg/dL (9-16); Calcium 9.3 mg/dL (8.4-10.2); Carbon Dioxide 30 mmol/L (22-29); Chloride 104 mmol/L (96-108); Estimated Glomerular Filt Rate > 60; Glucose Random 119 mg/dL (60-115); Potassium 3.7 mmol/L (3.3-5.1); Sodium 143 mmol/L (135-145); Total Protein 7.7 g/dL (6.5-8.0)
[2024-09-23 10:49] LABS: Vitamin D 25-OH Total 28.4 ng/mL (>30)
[2024-09-23 11:10] LABS: Folate 8.9 ng/mL (> or = 4.0); Vitamin B12 327 pg/mL (200-900)
[2024-09-23 12:20] LABS: Uric Acid 6.3 mg/dL (3.4-7.0)
[2024-09-24 06:54] LABS: Lyme Abs Screen <0.90 index
[2024-09-24 07:44] LABS: CRP High Sensitivity 0.5 mg/L
== END 2024-09-23 08:07 | disposition home or self-care (01) ==
LOC: HO.XRAY 08:06
DX: R20.2 Paresthesia of skin (principal); M79.609 Pain in unspecified limb; G47.33 Obstructive sleep apnea (adult) (pediatric); G47.19 Other hypersomnia; R53.83 Other fatigue; R06.02 Shortness of breath; I10 Essential (primary) hypertension; M25.50 Pain in unspecified joint
CPT/HCPCS: 36415; 71046; 73630; 80053; 82306; 82607; 82746; 83880; 84550; 85025; 85652; 86141; 86617; 86618

== ENCOUNTER → 2024-09-23 08:28 | Outpatient (BNV) | payer OTHER, SELFPAY | PROVIDERS: Visit Provider Radiology Diagnostic Radiology | DX: R20.2 Paresthesia of skin (principal); M25.471 Effusion, right ankle; M77.31 Calcaneal spur, right foot | CPT/HCPCS: 71046; 73630 ==

== ENCOUNTER 2024-10-25 03:33 | Emergency (ER) | payer OTHER, SELFPAY ==
--- NOTE | 2024-10-25 | ECG_ITS ---
Test Reason : PALPITATIONS Blood Pressure : */* mmHG Vent. Rate : 61 BPM Atrial Rate : 61 BPM P-R Int : 212 ms QRS Dur : 90 ms QT Int : 390 ms P-R-T Axes : 58 8 18 degrees QTcB Int : 392 ms Sinus rhythm with 1st degree A-V block Possible Inferior infarct , age undetermined Abnormal ECG When compared with ECG of 16-Dec-2023 22:48, No significant change was found Referred By: Generic ED Physician Electronically Signed By: CASEY ALEXANDER MD
--- NOTE | ~2024-10-25 | XR_ITS ---
CLINICAL HISTORY: Palpitation 2 view chest x-ray Comparison: 09/23/2024 Findings: No consolidation or effusion. Normal size heart. No acute fracture. IMPRESSION: 1. No acute findings. This document has been electronically signed by: Yoni Diaz MD on 10/25/2024 08:07:34
[2024-10-25 03:34] VITALS: BP 170/100; PULSE 71; RESP 18; TEMP 36.6; O2SAT 98; BMI 36.2
[2024-10-25 03:50] VITALS: BP 160/96; PULSE 69; RESP 20; TEMP 36.8; O2SAT 99
[2024-10-25 03:51] LABS: MANUAL DIFF FLAG NO
[2024-10-25 03:52] LABS: Basophils Percent Auto 0.3 % (0-2); Eosinophils Absolute Auto 0.2 X10*3/uL (0.0-0.4); Eosinophils Percent Auto 2.4 % (0-4); Hematocrit 41.3 % (42.0-52.0); Imm Gran Abs Auto 0.02 X10*3/uL (0.00-0.03); Imm Gran Pct Auto 0.3 % (0.0-0.4); Lymphocytes Percent Auto 39.7 % (20-40); Mean Corpuscular HGB Conc 33.9 g/dl (31.0-36.0); Mean Corpuscular Hemoglobin 27.9 pg (27.0-33.0); Mean Corpuscular Volume 82.4 fL (80.0-98.0); Mean Platelet Volume 9.6 fL (9.4-12.4); Monocytes Absolute Auto 0.7 X10*3/uL (0.1-1.2); Monocytes Percent Auto 8.7 % (2-11); Neutrophils Absolute Auto 3.6 x10*3/uL (2.0-8.3); Neutrophils Percent Auto 48.6 % (45-73); Platelet Count 203 X10*3/uL (160-400); Red Blood Count 5.01 X10*6/uL (4.60-5.80); Red Cell Distribution Width 13.1 % (11.0-16.0); White Blood Count 7.5 X10*3/uL (4.8-10.8)
[2024-10-25 04:05] LABS: Alanine Aminotransferase 27 U/L (0-40); Albumin Level 4.7 g/dL (3.5-5.0); Alkaline Phosphatase 58 U/L (39-117); Anion Gap 13 (12-20); Aspartate Amino Transferase 25 U/L (5-37); Bilirubin Total 0.5 mg/dL (0.0-1.0); Blood Urea Nitrogen 19 mg/dL (9-16); Calcium 9.2 mg/dL (8.4-10.2); Carbon Dioxide 25 mmol/L (22-29); Chloride 106 mmol/L (96-108); Estimated Glomerular Filt Rate > 60; Glucose Random 146 mg/dL (60-115); Magnesium 1.8 mg/dL (1.6-2.6); Potassium 3.2 mmol/L (3.3-5.1); Sodium 141 mmol/L (135-145); Total Protein 7.3 g/dL (6.5-8.0)
[2024-10-25 04:21] LABS: Troponin-I High Sensitivity < 2.7 ng/L (<3.5-35.0)
[2024-10-25 04:27] LABS: Influenza A PCR NEGATIVE (Negative); Influenza B PCR NEGATIVE (Negative); Resp Syncy Virus RNA Qual PCR NEGATIVE (Negative); SARS COV2 PCR INHOUSE NEGATIVE (Negative)
[2024-10-25 05:54] VITALS: BP 133/90; PULSE 81; RESP 16; TEMP 36.7; O2SAT 97
--- NOTE | 2024-10-25 07:21 | ED_ITS ---
HPI - Arrhythmia/Palpitations General Chief Complaint: Arrhythmia/Palpitations Stated Complaint: Heart Racing Time Seen by Provider: 10/25/24 07:06 Source: patient and family Mode of arrival: ambulatory Limitations: no limitations History of Present Illness ED Provider: DR. Bauer HPI narrative: 49-year-old male came in for evaluation of palpitation and shortness of breath for 2-3 days. Patient's symptoms triggered by exertion or from walking his dog, a start to feel shortness of breath and palpitation. When patient have the symptoms he gets anxious check and his blood pressure goes up patient takes lisinopril /HCTZ, amlodipine and patient is compliant with his medication. No chest pain, no shortness of breath, no history of drug use, no history of smoking. No recent travel, no lower extremity swelling or tenderness, patient while in the ED is asymptomatic. Related Data Previous Rx's ?Medication ?Instructions ?Recorded loratadine 10 mg tablet (Claritin) 10 mg PO DAILY PRN allergic 04/23/22 symptoms #30 tabs cholecalciferol (vitamin D3) 50 50 mcg PO DAILY 90 days #90 caps 06/29/23 mcg (2,000 unit) capsule fluticasone furoate 200 1 inh inhalation DAILY 30 days #30 06/29/24 mcg/actuation blister powder for ea inhalation (Arnuity Ellipta) amlodipine 5 mg tablet 5 mg PO DAILY 90 days #90 tabs 07/22/24 albuterol sulfate 90 mcg/actuation 2 puff inhalation Q6H PRN 09/14/24 aerosol inhaler shortness of breath or wheezing #8.5 grams lisinopril 20 1 tab PO DAILY #90 tabs 10/18/24 mg-hydrochlorothiazide 25 mg tablet meloxicam 15 mg tablet 15 mg PO DAILY #30 tabs 10/18/24 Allergies Allergy/AdvReac Type Severity Reaction Status Date / Time No Known Allergies Allergy Verified 10/25/24 03:35 [No Known Allergies*] Review of Systems 2 Review of Systems: All other systems are reviewed and are negative Constitutional: Reports as per HPI and Reports no additional constitutional complaints Eyes: Reports as per HPI and Reports no additional eye complaints Reports system reviewed and no additional complaints, except as documented Cardiovascular: Reports as per HPI and Reports no additional cardiovascular complaints Respiratory: Reports as per HPI and Reports no additional respiratory complaints Gastrointestinal: Reports as per HPI and Reports no additional gastrointestinal complaints Genitourinary: Reports no additional female genitourinary complaints Musculoskeletal: Reports no additional musculoskeletal complaints Skin/Breast: Reports system reviewed and no additional complaints, except as docu Psychiatric: Reports no additional psychiatric complaints Endocrine: Reports no additional endocrine complaints Hematologic/Lymphatic: Reports no additional hematologic/lymphatic complaints Allergic/Immunologic: Reports no additional allergic/immunologic complaints Reports system reviewed and no additional complaints, except as documented and Reports Abnormal speech present [facility] Past Medical History Medical History FANTASMA (obstructive sleep apnea) Vitamin D deficiency Fatigue Obesity (BMI 30-39.9) Pure hypercholesterolemia Urinary incontinence Benign essential hypertension Asthma Anxiety Surgical History (Reviewed 10/25/24 @ 07: by Josie Bauer MD) No significant past surgical history Family History Family History (Reviewed 10/25/24 @ 07: by Josie Bauer MD) Mother Hypertension Breast cancer Maternal Grandmother Coronary artery disease Social History Social History Housing: House Are you a primary cardiac care nurse to a significant other at home: No Do you presently have visiting nurse or other home services: No Alcohol intake: never Patient Tobacco Use Status: Never used Tobacco Smoked in Last 30 Days: No e-Cigarette/Vaping Use: Never Used Second Hand Smoke Exposure: No Use of substances other than those prescribed or required for medical reasons: No Advance Directives: No Advance Directives Information Provided: Yes service: No Current occupational status: employed Current occupation: [employer] Cognitive needs: No Hearing needs: No Vision needs: No Physical Exam 2 Vital Signs: Vital Signs: Last Vital Signs Temp 98.0 F 10/25/24 05:54 Pulse 81 10/25/24 05:54 Resp 16 10/25/24 05:54 BP 133/90 H 10/25/24 05:54 Pulse Ox 97 10/25/24 05:54 O2 Del Method Room Air 10/25/24 05:54 BMI result Body Mass Index 36.2 Vital signs have been reviewed and appear to be correct. Blood pressure elevated. Heart rate normal. Respiratory rate normal. Temperature normal. Oxygen saturation normal. Appearance: Alert. Oriented X3. No acute distress. Head: Normal external exam. Normocephalic. Atraumatic. No Lemon signs noted. No raccoon eyes noted Eyes: PERRLA. EOMI. Conjunctiva and sclera normal. Eyelids normal. ENT: TM's Normal. Pharynx normal. Uvula midline. Moist mucous membranes. No trismus noted. No drooling noted. No muffled voice noted. Neck: Normal inspection. Neck supple. FROM. No adenopathy. Thyroid Normal. No meningeal signs. No neck mass noted. CVS: Normal heart rate and rhythm. Heart sound normal. No murmurs noted. Pulses normal throughout. Respiratory: No respiratory distress. Painless inspiration. Breath sounds normal. No wheezes/rales/rhonchi noted. Chest nontender. No accessory muscle usage noted or decreased air movement noted. Abdomen: Soft and nontender. Bowel sounds normal in all 4 quadrants. No distention noted. No organomegaly noted. No visible injury noted. Back: No CVA tenderness. Full range of motion noted. Skin: Skin warm and dry. Normal skin color. Normal skin turgor. No rashes/lesions/lacerations noted. Extremities: No lower extremity edema. Extremities exhibit normal range of motion. Extremities nontender. Neuro: Oriented X 3. Cranial nerve exam: II-XII are grossly intact No motor deficit. No sensory deficit. Reflexes normal. Course Reevaluation(s) Reevaluation #1: Intermittent chest pain and palpitation mostly with exertion for the past 3 days, negative cardiac markers to suggest ACS, negative D-dimer to suggest pulmonary embolism. Chest x-ray is unremarkable. 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 Time: 07:26 Medical Decision Making Differential Diagnosis Differential Diagnoses: The differential diagnosis associated with the presentation includes ( ACS, pulmonary embolism, arrhythmia, electrolyte derangement, severe anemia, pneumonia, pneumothorax, pleural effusion , CHF.) Admission/Observation Consideration of admission/observation: Escalation of care including admission/observation considered Lab Data MDM Lab Attestation statement: I reviewed the patient's lab results. 10/25/24 03:43 10/25/24 03:43 Labs: Lab Results 10/25/24 Range/Units 03:43 WBC 7.5 (4.8-10.8) X10*3/uL RBC 5.01 (4.60-5.80) X10*6/uL Hgb 14.0 (14.0-18.0) g/dl Hct 41.3 L (42.0-52.0) % MCV 82.4 (80.0-98.0) fL MCH 27.9 (27.0-33.0) pg MCHC 33.9 (31.0-36.0) g/dl RDW 13.1 (11.0-16.0) % Plt Count 203 (160-400) X10*3/uL MPV 9.6 (9.4-12.4) fL Immature Gran % (Auto) 0.3 (0.0-0.4) % Neut % (Auto) 48.6 (45-73) % Lymph % (Auto) 39.7 (20-40) % [place] % (Auto) 8.7 (2-11) % Eos % (Auto) 2.4 (0-4) % Baso % (Auto) 0.3 (0-2) % Lymph # (Auto) 3.0 (1.2-4.9) X10*3/uL [place] # (Auto) 0.7 (0.1-1.2) X10*3/uL Eos # (Auto) 0.2 (0.0-0.4) X10*3/uL Baso # (Auto) 0.0 (0.0-0.2) X10*3/uL Abs Immat Gran (auto) 0.02 (0.00-0.03) X10*3/uL Absolute Neuts (auto) 3.6 (2.0-8.3) x10*3/uL Absolute Nucleated RBC 0.000 (0.0-0.012) X10*3/uL Nucleated RBC % (auto) 0.0 (0.0-0.2) /100WBC Sodium 141 (135-145) mmol/L Potassium 3.2 L (3.3-5.1) mmol/L Chloride 106 (96-108) mmol/L Carbon Dioxide 25 (22-29) mmol/L Anion Gap 13 (12-20) BUN 19 H (9-16) mg/dL Creatinine 1.12 (0.5-1.4) mg/dL Estim Creat Clear Calc 93.0 Estimated GFR > 60 Random Glucose 146 H (60-115) mg/dL Calcium 9.2 (8.4-10.2) mg/dL Magnesium 1.8 (1.6-2.6) mg/dL Total Bilirubin 0.5 (0.0-1.0) mg/dL AST 25 (5-37) U/L ALT 27 (0-40) U/L Alkaline Phosphatase 58 (39-117) U/L Troponin I High Sens < 2.7 (<3.5-35.0) ng/L Total Protein 7.3 (6.5-8.0) g/dL Albumin 4.7 (3.5-5.0) g/dL Influenza Type A (PCR) NEGATIVE (Negative) Influenza Type B (PCR) NEGATIVE (Negative) RSV RNA Qual (PCR) NEGATIVE (Negative) SARS-CoV-2 RNA (RT-PCR) NEGATIVE (Negative) Independent Interpretation I performed an independent interpretation of an: EKG ( No acute EKG changes, no change from previous EKG.) and Plain X-Ray ( Chest: No acute intrathoracic pathology.) Radiology Impression Discussion of test interpretation with radiology: I have reviewed the radiologist's reading. Discharge Plan Discharge Clinical Impression: Chest pain, Heart palpitations Patient Disposition: Home, Self-Care Instructions: Heart Palpitations (ED), Hypokalemia (ED) Prescriptions: No Action cholecalciferol (vitamin D3) 50 mcg (2,000 unit) capsule 50 mcg PO DAILY 90 Days Qty: 90 3RF Arnuity Ellipta 200 mcg/actuation blister with device 1 inh inhalation DAILY 30 Days Qty: 30 3RF amlodipine 5 mg tablet 5 mg PO DAILY 90 Days Qty: 90 1RF albuterol sulfate 90 mcg/actuation HFA aerosol inhaler 2 puff inhalation Q6H PRN (Reason: shortness of breath or wheezing) Qty: 8.5 0RF lisinopril-hydrochlorothiazide 20-25 mg tablet 1 tab PO DAILY Qty: 90 0RF meloxicam 15 mg tablet 15 mg PO DAILY Qty: 30 3RF loratadine [Claritin] 10 mg tablet 10 mg PO DAILY PRN (Reason: allergic symptoms) Qty: 30 0RF Referrals: Leif Martin MD [Primary Care Provider] - Lazarus Astudillo MD [Physician] - Print Language: [place] Helen[place]
[2024-10-25] MEDS: Potassium Chloride Packet 20 MEQ PACKET 40 MEQ PO (07:29)
[2024-10-25 07:53] LABS: D Dimer High Sensitivity < 150 NG/ML
[2024-10-25 08:14] LABS: Troponin-I High Sensitivity < 2.7 ng/L (<3.5-35.0)
[2024-10-25 08:20] LABS: B Type Natriuretic Peptide < 10 pg/mL (<100)
[2024-10-25 08:32] VITALS: BP 151/95; PULSE 68; RESP 18; TEMP 36.8; O2SAT 98
[2024-10-25 08:34] VITALS: BP 151/95; PULSE 68; RESP 18; TEMP 36.8; O2SAT 98
== END 2024-10-25 08:35 | disposition home or self-care (01) ==
PROVIDERS: Emergency Provider Emergency Medicine; PCP Internal Medicine
DX: R07.9 Chest pain, unspecified (principal); R00.2 Palpitations; R06.02 Shortness of breath; Z03.818 Encounter for observation for suspected exposure to other biological agents ruled out; I10 Essential (primary) hypertension; E78.00 Pure hypercholesterolemia, unspecified; J45.909 Unspecified asthma, uncomplicated; Z79.899 Other long term (current) drug therapy
CPT/HCPCS: 0241U; 36415; 71046; 80053; 83735; 83880; 84484; 85025; 85379; 93005; 99283; 99284

== ENCOUNTER → 2024-10-25 03:39 | Outpatient (BNV) | payer OTHER, SELFPAY | PROVIDERS: Emergency Provider Emergency Medicine; PCP Internal Medicine; Visit Provider Internal Medicine Cardiovascular Disease | DX: I44.0 Atrioventricular block, first degree (principal) | CPT/HCPCS: 93010 ==

== ENCOUNTER → 2024-10-25 07:20 | Outpatient (BNV) | payer OTHER, SELFPAY | PROVIDERS: Emergency Provider Emergency Medicine; PCP Internal Medicine; Visit Provider Specialist | DX: R00.2 Palpitations (principal) | CPT/HCPCS: 71046 ==

== ENCOUNTER 2024-11-26 08:29 | Outpatient (AMB) | payer OTHER, SELFPAY ==
--- NOTE | 2024-11-26 08:30 | A.OFFPC_ITS ---
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 Accompanied by: Self / Same As Patient Allergies No Known Allergies (No Known Allergies*) Allergy (Verified 11/26/24 08:39) Medication List - Last Reconciled 11/26/24 by JOHANNE Washington albuterol sulfate 90 mcg/actuation 2 puffs inhalation Q6H PRN amlodipine 5 mg PO DAILY 90 days cholecalciferol (vitamin D3) 50 mcg PO DAILY 90 days fluticasone furoate 200 mcg/actuation (Arnuity Ellipta) 1 inh inhalation DAILY 30 days lisinopril-hydrochlorothiazide 20-25 mg 1 tab PO DAILY loratadine (Claritin) 10 mg PO DAILY PRN meloxicam 15 mg PO DAILY Tobacco use date assessed: 09/22/24 Dental Screening Dental Screen Date: 09/22/24 HPI foot pain/joint pain/sob HPI Details The patient is a 49-year-old male presenting with dyspnea and bilateral foot pain. 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 He has been using an inhaler, which was recently prescribed, and notes that his symptoms have improved some, but not completely. There is no family history of heart disease, although he recalls some childhood heart issues mentioned by his mother. Recent chest xray showed no abnormalities. The patient also reports bilateral foot pain, which is exacerbated upon waking and involves stiffness and inflammation. He has been advised to use Biofreeze and massage the affected areas to alleviate symptoms. The patient has a history of hypertension, with recent blood pressure readings showing improvement from 150/90 mmHg to 136/90 mmHg, rechecked bp 128/88. He has been advised to reduce salt intake to manage his blood pressure better. The patient is concerned about his weight, noting that it may contribute to his breathing difficulties and foot pain. He has been advised to focus on dietary changes, such as reducing sugar intake and preparing meals in advance, to aid in weight loss. [facility] Medical History FANTASMA (obstructive sleep apnea) Vitamin D deficiency Fatigue Obesity (BMI 30-39.9) Pure hypercholesterolemia Urinary incontinence Benign essential hypertension Asthma Anxiety Surgical History No significant past surgical history Family History Mother Hypertension Breast cancer Maternal Grandmother Coronary artery disease Social History Housing: House Are you a primary residential care officer to a significant other at home: No Do you presently have visiting nurse or other home services: No Alcohol intake: never Patient Tobacco Use Status: Never used Tobacco e-Cigarette/Vaping Use: Never Used Second Hand Smoke Exposure: No service: No Current occupational status: employed Current occupation: [employer] Cognitive needs: No Hearing needs: No Vision needs: No Questionnaire PHQ-9 Over the last 2 weeks, how often have you been bothered by any of the following problems? 1. Little interest or pleasure in doing things: several days 2. Feeling down, depressed, or hopeless: not at all 3. Trouble falling or staying asleep, or sleeping too much: not at all 4. Feeling tired or having little energy: several days 5. Poor appetite or overeating: not at all 6. Feeling bad about yourself - or that you are a failure or have let yourself or your family down: not at all 7. Trouble concentrating on things, such as reading the newspaper or watching television: not at all 8. Moving or speaking so slowly that other people could have noticed. Or the opposite - being so fidgety or restless that you have been moving around a lot more than usual: not at all 9. Thoughts that you would be better off or of hurting yourself in some way: not at all Total score: 2 Source: Developed by Drs. Rivera Montoya, Elenoora Barillas, Odin Gracia and colleagues, with an educational milton from [email or web address]. Thrive Questionnaire Date Thrive assessed: 09/20/24 I am a: Patient What is your living situation today?: I have a steady place to live Within the past 12 months, did the food you bought not last and you didn't have the money to get more?: Often true Within the past 12 months, did you worry whether your food would run out before you got money to buy more?: Often true Do you have trouble paying for medicines?: Yes Do you have trouble getting transportation to medical appointments?: No Do you have trouble paying your heating and electricity bill?: Yes Do you have trouble taking care of your child, family member or friend?: No Do you have trouble with day-to-day activities such as bathing, preparing meals, shopping, managing finances, etc.?: No Are you currently unemployed and looking for a job?: No Are you interested in more education?: No Currently or been in a relationship where the following occur: I choose not to answer THRIVE Score: 3 AMRIK-7 AMB Questionnaire AMRIK-7 Date AMRIK - 7 assessed: 09/22/24 Source: Developed by Drs. Rivera Montoya, Eleonora Barillas, Odin Gracia and colleagues, with an educational milton from [email or web address]. Review of Systems Const Denies headache(s) Eyes Denies loss of vision ENT Denies vertigo, Reports dizziness (intermittently when he get sob), Denies headache(s) and Denies sore throat Card Denies chest pain, Denies leg edema, Denies lightheadedness and Reports dyspnea on exertion Resp Denies cough, Denies hemoptysis, Reports dyspnea on exertion and Denies wheezing GI Denies abdominal pain, Denies melena, Denies constipation, Denies diarrhea and Denies vomiting Denies dysuria, Denies urinary frequency and Denies urinary urgency Musc Denies arthralgias, Denies joint swelling, Denies numbness, Denies tingling and Reports other (Feet pain) Neuro Denies Abnormal speech present, Denies vertigo, Reports dizziness (intermittently when he get sob), Denies headache(s), Denies loss of vision, Denies numbness and Denies tingling [place]/Lymph Denies easy bleeding and Denies easy bruising Aller/Immun Denies wheezing Physical exam (Primary Care) Vital Signs: Last Vital Signs Temp 98.9 F 11/26/24 08:47 Pulse 73 11/26/24 08:47 Resp 16 11/26/24 08:47 BP 128/88 11/26/24 08:47 Pulse Ox 96 11/26/24 08:33 Oxygen Delivery Method Room Air 11/26/24 08:33 BMI result Body Mass Index 35.4 Tobacco/Smoking Status: Tobacco use Status Tobacco use date assessed 09/22/24 11/26/24 08:36 Patient Tobacco Use Status Never used Tobacco 11/26/24 08:36 e-Cigarette/Vaping Use Never Used 11/26/24 08:36 PHQ-9: PHQ-9 Score PHQ-9: Total score 2 11/26/24 08:42 Thrive Assessment: Date of Thrive Assessment Date Thrive assessed 09/20/24 11/26/24 08:36 Currently or been in a relationship where the following occur: I choose not to answer Const General: healthy appearing, no acute distress, alert and awake Nutritional Appearance: well nourished Orientation/consciousness: oriented to person, oriented to place and oriented to time HENMT Ears: hearing grossly normal bilaterally General nose exam: Normal external nose present Eyes Conjunctivae: conjunctivae normal Sclerae: sclerae normal Pupils: Equal, round and reactive pupils present Neck Neck: Yes no lymphadenopathy and Yes no JVD Thyroid: Thyroid normal Carotids: no bruits Resp Effort & Inspection: normal respiratory effort and not tachypneic Auscultation: no crackles, no rales, no rhonchi and no wheezes Cardio Rate: regular rate Rhythm: regular rhythm Heart sounds: no murmurs and normal S1 and S2 GI Palpation (GI): Soft to palpation, nontender, no hepatomegaly and no splenomegaly Auscultation: normal bowel sounds Skin General skin exam: no rashes or lesions noted and dry skin Neuro General: oriented to person, oriented to place and oriented to time Cranial nerves: Yes Equal, round and reactive pupils present Speech: No Abnormal speech present Gait exam (Neuro): Normal gait present Motor exam (neuro): no tremor noted Extrem Right upper extremity: full ROM Left upper extremity: full ROM Right lower extremity: full ROM and foot Details: normal to inspection; no tenderness and no edema; no edema Left lower extremity: full ROM and foot Details: normal to inspection; no tenderness and no edema; no edema Psych Mental Status: mental status grossly normal Speech and movement: Normal speech and movement present Affect: normal affect Attitude: cooperative Thought process: Normal thought process present Results Reviewed Results Reviewed: Laboratory Tests 10/25/24 10/25/24 03:43 07:37 WBC 7.5 RBC 5.01 Hgb 14.0 Hct 41.3 L MCV 82.4 MCH 27.9 MCHC 33.9 RDW 13.1 Plt Count 203 MPV 9.6 Immature Gran % (Auto) 0.3 Sodium 141 Potassium 3.2 L Chloride 106 Carbon Dioxide 25 Anion Gap 13 BUN 19 H Creatinine 1.12 Estim Creat Clear Calc 93.0 Estimated GFR > 60 Random Glucose 146 H Calcium 9.2 Magnesium 1.8 Total Bilirubin 0.5 AST 25 ALT 27 Alkaline Phosphatase 58 Troponin I High Sens < 2.7 B-Natriuretic Peptide < 10 Total Protein 7.3 Albumin 4.7 Coding Level of Care Code Est Pt Level 3 (05984) Diagnoses Benign essential hypertension I10 Exertional dyspnea R06.00 Obesity (BMI 30-39.9) E66.9 Plantar fasciitis M72.2 Time Spent (min) 36 Assessment & Plan Assessment & Plan (1) Benign essential hypertension: Code(s): I10 - Essential (primary) hypertension Category: Medical Plan: Ongoing hypertension. For his blood pressure 136/90. Rechecked of the patient sat down for few minutes and BP was 128/88. Continue amlodipine 5 mg daily, lisinopril-hydrochlorothiazide 20-25 mg daily. Reinforced low-salt diet (2) Exertional dyspnea: Code(s): R06.00 - Dyspnea, unspecified Category: Medical Plan: Patient continues to complain of dyspnea with exertion. On previous visit this was thought to be related to the patient respiratory system. 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 He was started on Arnuity Ellipta 200 mcg/actuation 1nh daily, along with albuterol sulfate 90 mcg/actuation 2 puffs inh q.6 p.r.n.. Per patient, he is still gets some dyspnea with exertion however the chest tightness/pressure/pain resolved. The patient is denying chest pain in office. However, he went to the emergency room last month for chest pain and shortness of breath. No acute findings were noted, his troponins was negative in his EKG was sinus with first-degree heart block. He also complained of heart palpitation at a time in the emergency room. Similarly, he is denying heart palpitation in office. A cardiac stress test was ordered today. Per hospital note the patient was referred to Cardiology already. Patient also has a history of mild FANTASMA that was deemed not bad enough for CPAP. We will refer the patient to pulmonology as well for further evaluation. (3) Obesity (BMI 30-39.9): Code(s): E66.9 - Obesity, unspecified Category: Medical Plan: Encouraged diet/exercise/ lose weight (4) Plantar fasciitis: Code(s): M72.2 - Plantar fascial fibromatosis Category: Medical Plan: Encouraged the patient to get his calves massage been decreased the pulling on his tendons in his feet. Encouraged to use Biofreeze calf muscles. Wearing comfortable shoes, will also assist with decreasing the inflammation. Orders: Orders CA stress test Today R06.00 - Dyspnea, unspecified Referrals Pulmonology Referral G47.33 - Obstructive sleep apnea (adult) (pediatric), J45.30 - Mild persistent asthma, uncomplicated, R06.00 - Dyspnea, unspecified
[2024-11-26 08:33] VITALS: BP 136/90; PULSE 68; TEMP 36.6; O2SAT 96; BMI 35.4
--- OUTSIDE RECORDS SUMMARY | 2024-11-26 08:34 | XMS_ITS | Clinical Summary ---
Author Organization [employer] 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
[2024-11-26 08:47] VITALS: BP 128/88; PULSE 73; RESP 16; TEMP 37.2
== END 2024-11-26 09:02 | disposition home or self-care (01) ==
LOC: HO.HMCH 08:29
PROVIDERS: PCP Internal Medicine
DX: I10 Essential (primary) hypertension (principal); R06.00 Dyspnea, unspecified; E66.9 Obesity, unspecified; Z68.35 Body mass index [BMI] 35.0-35.9, adult; M72.2 Plantar fascial fibromatosis

== ENCOUNTER 2025-01-01 10:01 | Outpatient (AMB) | payer OTHER, SELFPAY ==
[2025-01-01 10:07] VITALS: BP 132/76; PULSE 68; TEMP 36.7; O2SAT 97; BMI 36.0
--- NOTE | 2025-01-01 10:07 | AM.OFFWIN_ITS ---
Intake Vital Signs 01/01/25 10:07 Height 5 ft 7 in Weight 230 lb BMI 36.0 BP 132/76 Blood Pressure Location Lt brachial Position Sitting Pulse 68 Pulse Source Pulse Oximeter Temp 98.0 F Temp Source Oral Pulse Oximetry (%) 97 Oxygen Delivery Method Room Air Intake Visit Reasons: EP Blood in urine, no pain Intake Note: pt presents with concerns for red blood this morning Patient Tobacco Use Status: Never used Tobacco Allergies No Known Allergies (No Known Allergies*) Allergy (Verified 01/01/25 10:16) Do you need a note to return to daycare/school/sports/work: Yes HPI EP Blood in urine, no pain HPI Details This is a 49-year-old male patient who presents to the walk-in clinic today with report of blood in his urine earlier this morning. He states that when he use the bathroom first thing this morning, he noticed little specks of blood in his urine. He denies any pain, urgency, frequency of urination. Denies any flank pain, fever or chills. He states that when he urinated earlier this morning, and just recently here in the office, he did not notice any blood. 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 Denies any other recent trauma or illnesses. No recent sex or new partners. [facility] Medical History FANTASMA (obstructive sleep apnea) Vitamin D deficiency Fatigue Obesity (BMI 30-39.9) Pure hypercholesterolemia Urinary incontinence Benign essential hypertension Asthma Anxiety Surgical History No significant past surgical history Family History Mother Hypertension Breast cancer Maternal Grandmother Coronary artery disease Social History Housing: House Are you a primary director career services to a significant other at home: No Do you presently have visiting nurse or other home services: No Alcohol intake: never Patient Tobacco Use Status: Never used Tobacco e-Cigarette/Vaping Use: Never Used Second Hand Smoke Exposure: No service: No Current occupational status: employed Current occupation: [employer] Cognitive needs: No Hearing needs: No Vision needs: No Review of Systems Const All systems reviewed & are unremarkable except as noted in HPI and below Physical Exam Vital Signs: Last Vital Signs Temp 98.0 F 01/01/25 10:07 Pulse 68 01/01/25 10:07 BP 132/76 01/01/25 10:07 Pulse Ox 97 01/01/25 10:07 Oxygen Delivery Method Room Air 01/01/25 10:07 BMI result Body Mass Index 36.0 Const General: cooperative, healthy appearing, comfortable and no acute distress Limitations: no limitations HEENT Head: Yes normal to inspection Resp Effort & Inspection: normal respiratory effort Auscultation: clear to auscultation bilaterally Cardio Rate: regular rate Rhythm: regular rhythm General: Yes bladder normal to palpation and Yes no CVA tenderness Back/Spine/Pelvis Back: no CVA tenderness Thoracic/Lumbar Spine: thoracic and lumbar spine normal to inspection and tho raco-lumbar ROM normal Skin General skin exam: no rashes or lesions noted Extrem General: Yes capillary refill normal and Yes no clubbing, cyanosis or edema Psych Appearance: grossly normal Mental Status: mental status grossly normal Speech and movement: Normal speech and movement present Assessment & Plan Assessment & Plan (1) Hematuria of unknown etiology: Code(s): R31.9 - Hematuria, unspecified Plan: Urine dip in the office was unremarkable/negative for blood. Patient is asymptomatic. It is possible that given his heavy lifting yesterday, his symptoms represented a brief, exercise-induced hematuria which has resolved. I encouraged him to monitor this at home, and return to the clinic/follow up with PCP Dr. Martin if he develops recurring hematuria as well as any symptoms including fevers, chills, flank pain, dysuria. Patient verbalizes understanding and agrees to plan. Orders: Orders AMB Urinalysis Automated Today Z13.9 - Encounter for screening, unspecified Coding Level of Care Code Est Pt Level 4 (09811) Diagnoses Hematuria of unknown etiology R31.9
== END 2025-01-01 11:00 | disposition home or self-care (01) ==
PROVIDERS: PCP Internal Medicine; Visit Provider Nurse Practitioner Family
DX: Z13.9 Encounter for screening, unspecified (principal); R31.9 Hematuria, unspecified

== ENCOUNTER → 2025-01-01 10:01 | Outpatient (BNVA) | payer OTHER, SELFPAY | PROVIDERS: PCP Internal Medicine | DX: R31.9 Hematuria, unspecified (principal) | CPT/HCPCS: 81003 ==

== ENCOUNTER → 2025-02-12 08:04 | Outpatient (REF) | payer OTHER, SELFPAY ==
--- NOTE | 2025-02-12 08:06 | CA_ITS ---
Acquisition Time: 2025-02-12 08:06:15 Total Exercise Time: 00:07:00 Test Indications: SOB Medications: SEE H&P Protocol: BRANDON Max HR: 148 BPM 86% of Pred: 172 BPM Max BP: 190/98 mmHG Max Work Load: 8.5 METS Exercise stress test with exercise 7 min of Brandon protocol, achieving 86% MPHR, with moderate shortness of breath, report of dizziness, no chest discomfort, with rare PVC, with hypertensive response to exercise with max BP 190/98, without EKG changes meeting criteria for ischemia. In recovery his symptoms resolved and BP returned to near baseline at 118/88. He did take his antihypertensives this am. Test reviewed with Dr Grimaldo Referred By: Maury Singh Electronically Signed By: MARICARMEN MCCORMACK
--- OUTSIDE RECORDS SUMMARY | 2025-02-12 08:08 | XMS_ITS | Clinical Summary ---
Author Organization [employer] [facility] ity Address [address] [place] [address] Care Team Providers Care Corporate Recruiter Name Role Phone Unavailable Primary Care Provider [...] of 3 - 19+ 3-dose series) 1995 Depression Screening 05/13/2024 COVID-19 Vaccine (1 - 2023-2 5 season) 2025 Influenza Vaccine (#1) 2025 RSV Immunization Adult Patie nts (1 - 1-dose 75+ series) 2051 HIB Vaccines Aged Out No longer eligi [...]
== END ==
LOC: HO.CARD 08:04
PROVIDERS: PCP Internal Medicine
DX: J45.30 Mild persistent asthma, uncomplicated (principal); R06.81 Apnea, not elsewhere classified; G47.19 Other hypersomnia
CPT/HCPCS: 93017

== ENCOUNTER → 2025-02-12 08:06 | Outpatient (BNV) | payer OTHER, SELFPAY | PROVIDERS: PCP Internal Medicine; Visit Provider Nurse Practitioner Family | DX: I49.3 Ventricular premature depolarization (principal); R06.02 Shortness of breath; R42 Dizziness and giddiness | CPT/HCPCS: 93016; 93018 ==

== ENCOUNTER 2025-02-12 11:05 | Outpatient (AMB) | payer OTHER, SELFPAY ==
[2025-02-12 11:07] VITALS: BP 120/68; PULSE 74; O2SAT 97; BMI 36.2
--- NOTE | 2025-02-12 11:07 | MHC.OFFVIS ---
Vital Signs 02/12/25 11:07 Height 5 ft 7 in Weight 231 lb 4 oz BMI 36.2 BP 120/68 Blood Pressure Location Rt brachial Position Sitting Pulse 74 Pulse Source Pulse Oximeter Pulse Oximetry (%) 97 Oxygen Delivery Method Room Air Intake Visit Reasons: Dyspnea/FANTASMA Allergies No Known Allergies (No Known Allergies*) Allergy (Verified 02/12/25 11:12) HPI HPI Dyspnea/FANTASMA: Details: Jose is a pleasant 49-year-old male, never smoker with underlying asthma and obstructive sleep apnea. He was referred by PCP for pulmonary evaluation. 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 He was treated in the ED for an asthma exacerbation, which marked the onset of his asthma symptoms. The patient reports using two different inhalers, including an albuterol inhaler 2-3 times per day as well as Arnuity however felt the dry powder exacerbated symptoms and has since discontinued. He experiences dyspnea and dizziness during physical exertion, although these symptoms are not constant. He also reports occasional nocturnal wheezing and chest tightness, which have worsened over the past two months. Recent chest x-ray unremarkable. He denies seasonal allergies. He reports mother with asthma, otherwise denies any pertinent family history. The patient has a history of hypertension, which developed concurrently with his asthma symptoms. He is currently on two antihypertensive medications, but still experiences episodes of elevated blood pressure. The patient was diagnosed with sleep apnea but has not been able to afford a CPAP machine. He reports symptoms of daytime fatigue, witnessed apneas and snoring, which are consistent with sleep apnea. Last home sleep study 2021 revealed mild FANTASMA without significant nocturnal hypoxemia. [facility] Medical History FANTASMA (obstructive sleep apnea) Vitamin D deficiency Fatigue Obesity (BMI 30-39.9) Pure hypercholesterolemia Urinary incontinence Benign essential hypertension Asthma Anxiety Surgical History No significant past surgical history Family History Mother Hypertension Breast cancer Maternal Grandmother Coronary artery disease Social History Housing: House Are you a primary long term acute care registered nurse to a significant other at home: No Do you presently have visiting nurse or other home services: No Alcohol intake: never Patient Tobacco Use Status: Never used Tobacco e-Cigarette/Vaping Use: Never Used Second Hand Smoke Exposure: No service: No Current occupational status: employed Current occupation: [employer] Cognitive needs: No Hearing needs: No Vision needs: No Review of Systems Const Denies chills, Denies excessive sweating, Denies fever(s), Denies headache(s) and Denies night sweats Eyes Denies dry eyes, Denies irritation and Denies itchy eyes ENT Reports Normal hearing present, Denies headache(s), Denies nasal congestion, Denies nasal discharge, Denies post nasal drip and Denies sore throat Card Denies chest pain, Denies chest pain at rest, Denies chest pain with activity, Denies claudication, Denies leg edema, Denies dyspnea, Denies orthopnea and Denies paroxysmal nocturnal dyspnea Resp Denies chest congestion, Denies excessive phlegm production, Denies pain on inspiration, Denies pain with cough, Denies dyspnea and Denies stridor Musc Denies myalgias Neuro Reports Normal hearing present and Denies headache(s) Endo Denies excessive sweating Zachary/Lymph Denies lymphadenopathy Aller/Immun Denies itchy eyes and Denies seasonal rhinorrhea Physical Exam Vital Signs: Last Vital Signs Pulse 74 02/12/25 11:07 BP 120/68 02/12/25 11:07 Pulse Ox 97 02/12/25 11:07 Oxygen Delivery Method Room Air 02/12/25 11:07 BMI result Body Mass Index 36.2 Const General: cooperative, healthy appearing, comfortable, no acute distress, well developed and alert Nutritional Appearance: obese Orientation/consciousness: patient oriented x3 Limitations: no limitations HEENT Head: Yes normal to inspection, Yes normocephalic and Yes atraumatic Ears: hearing grossly normal bilaterally and external ears normal Eyes General: appearance normal, both eyes and all related structures Eyelids: Yes eyelids normal Sclerae: sclerae normal EOM: EOMs intact bilaterally Neck Neck: Yes normal visual inspection and Yes no lymphadenopathy Lymphatic: no lymphadenopathy noted Chest Chest palpation & inspection: normal inspection of the chest Resp Effort & Inspection: normal respiratory effort, able to speak in complete sentences, no audible wheezes, no cough, no stridor, not tachypneic, no tripod positioning and no use of accessory muscles Auscultation: clear to auscultation bilaterally Cardio Jugular venous distension: no JVD Rate: regular rate Rhythm: regular rhythm Skin Other: warm, dry General skin exam: no rashes or lesions noted Neuro General: patient oriented x3 Cranial nerves: Yes Normal hearing present Cognition (Neuro): normal cognition Gait exam (Neuro): Normal gait present Extrem General: Yes normal to inspection, Yes capillary refill normal, Yes no clubbing, cyanosis or edema and Yes no pedal edema Psych Appearance: grossly normal and well kempt Speech and movement: Normal speech and movement present and Clear speech present Affect: normal affect Attitude: cooperative Thought process: Normal thought process present Thought content: Normal thought content present Insight: Good insight present (Psych) Judgement: Good judgement present (Psych) Results Reviewed Results Reviewed: [address] [address] XRay Report Signed Patient: Jose Ruth MR#: [id number] : 1975 Acct:[id number] Age/Sex: 49 / M ADM Date: 10/25/24 Loc: .ED Attending Dr: Ordering Physician: Josie Bauer MD Date of Service: 10/25/24 Procedure(s): XR chest 2V Accession Number(s): [id number] cc: Leif Martin MD; Josie Bauer MD~ CLINICAL HISTORY: Palpitation 2 view chest x-ray Comparison: 09/23/2024 Findings: No consolidation or effusion. Normal size heart. No acute fracture. IMPRESSION: 1. No acute findings. This document has been electronically signed by: Yoni Diaz MD on 10/25/2024 08:07:34 Dictated By: Yoni Diaz MD Signed By: <Electronically signed by Yoni Diaz MD in OV> 10/25/24 0808 DD/ 0807 TD/TT: 10/25/24 0807 Financial Coordinator: Assessment & Plan Assessment & Plan (1) Asthma: Code(s): J45.909 - Unspecified asthma, uncomplicated Category: Medical Qualifiers: Asthma severity: mild Asthma persistence: persistent Asthma complication type: uncomplicated Qualified Code(s): J45.30 - Mild persistent asthma, uncomplicated (2) Witnessed apneic spells: Code(s): R06.81 - Apnea, not elsewhere classified Category: Medical (3) Excessive daytime sleepiness: Code(s): G47.19 - Other hypersomnia Category: Medical Plan Heavier presents for pulmonary evaluation for ongoing dyspnea, likely related to poorly controlled asthma. He has been using albuterol 2-3 times per day as he is unable to tolerate Arnuity. Will trial Breyna and discussed importance of good oral hygiene to prevent thrush. Will also send for PFT to assess severity of obstructive defect. Patient with prior history of obstructive sleep apnea and reconsidering the use of CPAP therapy now that he has different insurance. Will send for home sleep study to reestablish diagnosis. All questions were answered and patient is in agreement of plan. Will follow-up to review results or sooner if needed. Orders: Orders PFT pulmonary function test Today J45.30 - Mild persistent asthma, uncomplicated RT home sleep study Today G47.19 - Other hypersomnia, R06.81 - Apnea, not elsewhere classified Medications: New budesonide-formoterol 80-4.5 mcg/actuation (Breyna) 1 inh inhalation BID 10.2 grams 3RF Coding Level of Care Code New Pt Level 4 (94553) Diagnoses Mild persistent asthma without complication J45.30 Asthma severity: mild Asthma persistence: persistent Asthma complication type: uncomplicated Witnessed apneic spells R06.81 Excessive daytime sleepiness G47.19
== END 2025-02-12 11:45 | disposition home or self-care (01) ==
LOC: HO.HPSW 11:06
PROVIDERS: PCP Internal Medicine; Visit Provider Nurse Practitioner Family
DX: J45.30 Mild persistent asthma, uncomplicated (principal); R06.81 Apnea, not elsewhere classified; G47.19 Other hypersomnia
CPT/HCPCS: 99204

== ENCOUNTER 2025-03-01 08:36 | Outpatient (AMB) | payer OTHER, SELFPAY ==
[2025-03-01 08:40] VITALS: BP 140/90; PULSE 76; TEMP 36.2; O2SAT 97; BMI 37.0
--- NOTE | 2025-03-01 08:40 | MHC.PC.OV ---
Vital Signs 03/01/25 08:40 Height 5 ft 7 in Weight 236 lb 2 oz BMI 37.0 BP 140/90 H Blood Pressure Location Lt brachial Position Sitting Pulse 76 Pulse Source Pulse Oximeter Temp 97.1 F Temp Source Temporal Artery Scan Pulse Oximetry (%) 97 Oxygen Delivery Method Room Air Intake Visit Reasons: sob with exertion/foot pain Allergies No Known Allergies (No Known Allergies*) Allergy (Verified 03/01/25 08:48) Medication List - Last Reconciled 03/01/25 by JOHANNE Washington albuterol sulfate 90 mcg/actuation 2 puffs inhalation Q6H PRN amlodipine 5 mg PO DAILY 90 days budesonide-formoterol 80-4.5 mcg/actuation (Breyna) 1 inh inhalation BID cholecalciferol (vitamin D3) 50 mcg PO DAILY 90 days fluticasone furoate 200 mcg/actuation (Arnuity Ellipta) 1 inh inhalation DAILY 30 days lisinopril-hydrochlorothiazide 20-25 mg 1 tab PO DAILY meloxicam 15 mg PO DAILY Tobacco use date assessed: 03/01/25 Dental Screening Dental Screen Date: 03/01/25 Did you have a dental visit in the last 12 months?: Yes Did you have a dental problem in the last 6 months where you did not have access to dental care?: No Was dental information given to patient?: Patient has dentist HPI sob with exertion/foot pain HPI Details The patient is a 41-year-old male with significant past medical history of asthma and obstructive sleep apnea. 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 Patient was trial on Arnuity but was unable to tolerate this due to the powder. He was seen by pulmonology and was started on Breyna. He was not able to be started on CPAP due to insurance issues. He is presenting with hypertension, asthma, and concerns about weight gain. The patient reports that his blood pressure was noted to be elevated, which he attributes to missing a dose of his medication while traveling to [place]. He acknowledges that his blood pressure can increase rapidly, reaching levels as high as 170 mmHg during stress tests, although no cardiac issues were identified. 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 The new inhaler has been effective, and the patient reports improved breathing since the change. The patient is also concerned about weight gain, noting an increase of 5 pounds since his last visit despite dietary changes to reduce salt and sugar intake. He has been consuming smaller portions and incorporating more salads and white meat into his diet. [facility] Medical History FANTASMA (obstructive sleep apnea) Vitamin D deficiency Fatigue Obesity (BMI 30-39.9) Pure hypercholesterolemia Urinary incontinence Benign essential hypertension Asthma Anxiety Surgical History No significant past surgical history Family History Mother Hypertension Breast cancer Maternal Grandmother Coronary artery disease Social History Housing: House Are you a primary memory care program resident to a significant other at home: No Do you presently have visiting nurse or other home services: No Alcohol intake: never Patient Tobacco Use Status: Never used Tobacco e-Cigarette/Vaping Use: Never Used Second Hand Smoke Exposure: No service: No Current occupational status: employed Current occupation: [employer] Cognitive needs: No Hearing needs: No Vision needs: No Questionnaire PHQ-9 Over the last 2 weeks, how often have you been bothered by any of the following problems? 1. Little interest or pleasure in doing things: several days 2. Feeling down, depressed, or hopeless: not at all 3. Trouble falling or staying asleep, or sleeping too much: not at all 4. Feeling tired or having little energy: several days 5. Poor appetite or overeating: not at all 6. Feeling bad about yourself - or that you are a failure or have let yourself or your family down: not at all 7. Trouble concentrating on things, such as reading the newspaper or watching television: not at all 8. Moving or speaking so slowly that other people could have noticed. Or the opposite - being so fidgety or restless that you have been moving around a lot more than usual: not at all 9. Thoughts that you would be better off or of hurting yourself in some way: not at all Total score: 2 Source: Developed by Drs. Eleonora Da Silva, Odin Gracia and colleagues, with an educational milton from [employer]. Thrive Questionnaire Date Thrive assessed: 09/20/24 I am a: Patient What is your living situation today?: I have a steady place to live Within the past 12 months, did the food you bought not last and you didn't have the money to get more?: Often true Within the past 12 months, did you worry whether your food would run out before you got money to buy more?: Often true Do you have trouble paying for medicines?: Yes Do you have trouble getting transportation to medical appointments?: No Do you have trouble paying your heating and electricity bill?: Yes Do you have trouble taking care of your child, family member or friend?: No Do you have trouble with day-to-day activities such as bathing, preparing meals, shopping, managing finances, etc.?: No Are you currently unemployed and looking for a job?: No Are you interested in more education?: No Currently or been in a relationship where the following occur: I choose not to answer THRIVE Score: 3 AUDIT C Alcohol Use Questionnaire (AUDIT-C) 1. How often do you have a drink containing alcohol?: Never 3. How often do you have six or more drinks on one occasion?: Never Total Score: 0 AMRIK-7 AMB Questionnaire AMRIK-7 Date AMRIK - 7 assessed: 09/22/24 Feeling nervous, anxious, or on edge: 1 = Several days Not being able to stop or control worryin = Several days Worrying too much about different things: 1 = Several days Trouble relaxin = Several days Being so restless that it is hard to sit still: 0 = Not at all Becoming easily annoyed or irritable: 0 = Not at all Feeling afraid as if something awful might happen: 1 = Several days Total AMRIK-7 score (0-4 normal; 5-9 mild; 10-14 moderate; 15-21 severe): 5 Source: Developed by Drs. Rivera Montoya, Eleonora Barillas, Odin Gracia and colleagues, with an educational milton from [employer]. Review of Systems Const Denies body aches, Denies chills, Denies fever(s), Denies headache(s) and Denies poor appetite Eyes Reports no additional complaints ENT Denies dysphagia, Denies dizziness, Denies headache(s) and Denies odynophagia Card Denies chest pain, Denies syncope, Denies edema, Denies irregular heart rhythm, Denies lightheadedness and Denies dyspnea Resp Denies cough and Denies dyspnea GI Denies abdominal pain, Denies constipation, Denies dysphagia, Denies diarrhea, Denies nausea, Denies odynophagia and Denies vomiting Reports no additional complaints Musc Denies abnormal gait and Reports other (plantar fasciitis improved since he started changing his diet) Skin/Breast Reports system reviewed and no additional complaints, except as documented Neuro Denies abnormal gait, Denies dizziness, Denies syncope and Denies headache(s) Psych Reports no additional complaints Physical exam (Primary Care) Vital Signs: Last Vital Signs Temp 97.1 F 03/01/25 08:40 Pulse 76 03/01/25 08:40 BP 140/90 H 03/01/25 08:40 Pulse Ox 97 03/01/25 08:40 Oxygen Delivery Method Room Air 03/01/25 08:40 BMI result Body Mass Index 37.0 Tobacco/Smoking Status: Tobacco use Status Tobacco use date assessed 03/01/25 03/01/25 08:44 Patient Tobacco Use Status Never used Tobacco 03/01/25 08:44 e-Cigarette/Vaping Use Never Used 03/01/25 08:44 PHQ-9: PHQ-9 Score PHQ-9: Total score 2 03/01/25 08:44 Thrive Assessment: Date of Thrive Assessment Date Thrive assessed 09/20/24 03/01/25 08:44 Currently or been in a relationship where the following occur: I choose not to answer Const General: cooperative, healthy appearing, comfortable and no acute distress Orientation/consciousness: patient oriented x3 HENMT Head: Yes normocephalic Ears: hearing grossly normal bilaterally General nose exam: Normal external nose present Eyes General: appearance normal, both eyes and all related structures Conjunctivae: conjunctivae normal Neck Neck: Yes full ROM and Yes no lymphadenopathy Resp Effort & Inspection: normal respiratory effort Auscultation: clear to auscultation bilaterally, no crackles, no rales, no rhonchi and no wheezes Cardio Rate: regular rate Rhythm: regular rhythm Heart sounds: S1 normal heart sound present and S2 normal heart sound present GI Palpation (GI): Soft to palpation, nontender and No hepatosplenomegaly present Auscultation: normal bowel sounds General: Yes no CVA tenderness Back/Spine/Pelvis Back: no CVA tenderness Skin General skin exam: no rashes or lesions noted Neuro General: patient oriented x3 Gait exam (Neuro): Normal gait present Extrem General: Yes normal to inspection, Yes full ROM and No edema Psych Affect: normal affect Attitude: cooperative Insight: Good insight present (Psych) Judgement: Good judgement present (Psych) Coding Level of Care Code Est Pt Level 3 (54618) Diagnoses Environmental allergies Z91.09 Benign essential hypertension I10 Obesity (BMI 30-39.9) E66.9 FANTASMA (obstructive sleep apnea) G47.33 Plantar fasciitis M72.2 Time Spent (min) 31 Assessment & Plan Assessment & Plan (1) Environmental allergies: Code(s): Z91.09 - Other allergy status, other than to drugs and biological substances Category: Medical Plan: Limit exposure to allergens Air purifiers and dust filters Air conditioner in house, especially where sleeping (2) Benign essential hypertension: Code(s): I10 - Essential (primary) hypertension Category: Medical Plan: The patient is advised to maintain adherence to antihypertensive medication and monitor blood pressure regularly, especially after missing doses. Lifestyle modifications, including dietary changes and increased physical activity, are recommended to manage blood pressure effectively. Continue lisinopril-hydrochlorothiazide 20-25 mg daily. The patient reports that he took the medication right before coming to the appointment that is why is blood pressure is still elevated. (3) Obesity (BMI 30-39.9): Code(s): E66.9 - Obesity, unspecified Category: Medical Plan: Recent weight gain of 5 lbs The patient is encouraged to continue dietary modifications and incorporate regular physical activity to address weight gain. (4) FANTASMA (obstructive sleep apnea): Comment: A mild degree of sleep apnea. The total AHI was 11/hr and the oxygen rand was 79%. Code(s): G47.33 - Obstructive sleep apnea (adult) (pediatric) Category: Medical Plan: The patient was referred to sleep study by pulmonology. History of sleep apnea but was unable to get cpap due to insurance issues. He has a new insurance now and would like to try and get this cover. (5) Plantar fasciitis: Code(s): M72.2 - Plantar fascial fibromatosis Category: Medical Plan: Reports that plantar fasciitis has been better since changing his diet. Continue wearing comfortable shoes. Meloxicam 15mg daily as needed. Plan Follow up in the 3 months Orders: Orders HIV Ab/Ag Today E55.9 - Vitamin D deficiency, unspecified, E66.9 - Obesity, unspecified, E78.00 - Pure hypercholesterolemia, unspecified, G47.33 - Obstructive sleep apnea (adult) (pediatric), I10 - Essential (primary) hypertension, J45.30 - Mild persistent asthma, uncomplicated, R06.02 - Shortness of breath, R07.9 - Chest pain, unspecified, R53.83 - Other fatigue, R73.01 - Impaired fasting glucose Vitamin D 25-OH Total Today E55.9 - Vitamin D deficiency, unspecified, E66.9 - Obesity, unspecified, E78.00 - Pure hypercholesterolemia, unspecified, G47.33 - Obstructive sleep apnea (adult) (pediatric), I10 - Essential (primary) hypertension, J45.30 - Mild persistent asthma, uncomplicated, R06.02 - Shortness of breath, R07.9 - Chest pain, unspecified, R53.83 - Other fatigue, R73.01 - Impaired fasting glucose Comprehensive [place]. Panel Fast Today E55.9 - Vitamin D deficiency, unspecified, E66.9 - Obesity, unspecified, E78.00 - Pure hypercholesterolemia, unspecified, G47.33 - Obstructive sleep apnea (adult) (pediatric), I10 - Essential (primary) hypertension, J45.30 - Mild persistent asthma, uncomplicated, R06.02 - Shortness of breath, R07.9 - Chest pain, unspecified, R53.83 - Other fatigue, R73.01 - Impaired fasting glucose Syphilis Screen Today E55.9 - Vitamin D deficiency, unspecified, E66.9 - Obesity, unspecified, E78.00 - Pure hypercholesterolemia, unspecified, G47.33 - Obstructive sleep apnea (adult) (pediatric), I10 - Essential (primary) hypertension, J45.30 - Mild persistent asthma, uncomplicated, R06.02 - Shortness of breath, R07.9 - Chest pain, unspecified, R53.83 - Other fatigue, R73.01 - Impaired fasting glucose CT NG by PCR Urine Today E55.9 - Vitamin D deficiency, unspecified, E66.9 - Obesity, unspecified, E78.00 - Pure hypercholesterolemia, unspecified, G47.33 - Obstructive sleep apnea (adult) (pediatric), I10 - Essential (primary) hypertension, J45.30 - Mild persistent asthma, uncomplicated, R06.02 - Shortness of breath, R07.9 - Chest pain, unspecified, R53.83 - Other fatigue, R73.01 - Impaired fasting glucose Hemoglobin A1c Today E55.9 - Vitamin D deficiency, unspecified, E66.9 - Obesity, unspecified, E78.00 - Pure hypercholesterolemia, unspecified, G47.33 - Obstructive sleep apnea (adult) (pediatric), I10 - Essential (primary) hypertension, J45.30 - Mild persistent asthma, uncomplicated, R06.02 - Shortness of breath, R07.9 - Chest pain, unspecified, R53.83 - Other fatigue, R73.01 - Impaired fasting glucose UA CC w/rflx Micro + Cult Today E55.9 - Vitamin D deficiency, unspecified, E66.9 - Obesity, unspecified, E78.00 - Pure hypercholesterolemia, unspecified, G47.33 - Obstructive sleep apnea (adult) (pediatric), I10 - Essential (primary) hypertension, J45.30 - Mild persistent asthma, uncomplicated, R06.02 - Shortness of breath, R07.9 - Chest pain, unspecified, R53.83 - Other fatigue, R73.01 - Impaired fasting glucose TSH reflex Free T4 Today E55.9 - Vitamin D deficiency, unspecified, E66.9 - Obesity, unspecified, E78.00 - Pure hypercholesterolemia, unspecified, G47.33 - Obstructive sleep apnea (adult) (pediatric), I10 - Essential (primary) hypertension, J45.30 - Mild persistent asthma, uncomplicated, R06.02 - Shortness of breath, R07.9 - Chest pain, unspecified, R53.83 - Other fatigue, R73.01 - Impaired fasting glucose Complete Blood Count Auto Diff Today E55.9 - Vitamin D deficiency, unspecified, E66.9 - Obesity, unspecified, E78.00 - Pure hypercholesterolemia, unspecified, G47.33 - Obstructive sleep apnea (adult) (pediatric), I10 - Essential (primary) hypertension, J45.30 - Mild persistent asthma, uncomplicated, R06.02 - Shortness of breath, R07.9 - Chest pain, unspecified, R53.83 - Other fatigue, R73.01 - Impaired fasting glucose
--- OUTSIDE RECORDS SUMMARY | 2025-03-01 09:08 | XMS_ITS | Clinical Summary ---
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
== END 2025-03-01 09:07 | disposition home or self-care (01) ==
LOC: HO.HMCH 08:36
PROVIDERS: PCP Internal Medicine
DX: I10 Essential (primary) hypertension (principal); E66.9 Obesity, unspecified; Z68.37 Body mass index [BMI] 37.0-37.9, adult; Z91.09 Other allergy status, other than to drugs and biological substances; G47.33 Obstructive sleep apnea (adult) (pediatric); M72.2 Plantar fascial fibromatosis